=== PATIENT | female | born 1980 | race Caucasian/White ===

== ENCOUNTER 2016-12-10 13:12 | Inpatient (IN) | payer SELFPAY ==
[2016-12-10 14:01] LABS: #Basophils 0.1 thou/uL (0.0-0.2); #Eosinphils 0.2 thou/uL (0.0-0.7); #Lymphocytes 3.6 thou/uL (1.20-3.40); #Monocytes 0.7 thou/uL (0.11-0.59); %Basophils 0.6 % (0.0-1.0); %Eosinophils 1.6 % (0.0-10.0); %Lymphocytes 24.4 % (21.0-51.0); %Monocytes 4.7 % (0.0-10.0); Hematocrit 40.5 % (36.0-47.0); Mean Platelet Volume 8.4 fL (7.4-10.4); White Blood Cell (WBC) Count 14.6 thou/uL (4.8-10.8)
[2016-12-10] MEDS ORDERED: ISOVUE-370 76%-LOCM 1 ML ONE (14:05)
[2016-12-10 14:17] LABS: ALT (SGPT) 22 U/L (8-55); AST (SGOT) 16 U/L (5-34); Alkaline Phosphatase 192 U/L (40-150); Anion Gap 16 mmol/L (10-20); BUN (Urea Nitrogen) 12 mg/dL (7.0-18.7); Bilirubin, Total 0.5 mg/dL (0.2-1.2); Calc. Creatinine Clearance 0 mL/min (70-130); Carbon Dioxide 20 mmol/L (22-29); Chloride 92 mmol/L (98-107); Estimated GFR-MDRD 36; Globulin 3.2 g/dL (2.4-3.5); Lactic Acid - Sepsis 3.3 mmol/L (0.5-2.2); Protein, Total 6.6 g/dL (6.0-8.3)
[2016-12-10] MEDS ORDERED: Clindamycin/D5W 900 mg/50 ml Premix Bag ONE (14:38)
[2016-12-10] MEDS ORDERED: Insulin Regular 300 UNITS/3 ML VIAL ONE (15:28)
[2016-12-10] MEDS ORDERED: Clindamycin/D5W 600 mg/50 ml Premix Bag ONE (15:38)
[2016-12-10] MEDS ORDERED: metroNIDAZOLE 500 MG/100 ML BAG ONE (17:08)
[2016-12-10] MEDS ORDERED: Ondansetron HCl/PF 4 MG/2 ML Vial IVP PRN (18:59)
[2016-12-10] MEDS ORDERED: Fentanyl 100 MCG/2 ML VIAL SLOW IVP PRN (18:59)
[2016-12-10] MEDS ORDERED: Ondansetron ODT 4 MG TAB SL PRN (18:59)
[2016-12-10] MEDS ORDERED: Sodium Chloride 0.45% 1,000 ML IV SCH (19:00)
[2016-12-10 19:27] VITALS: BMI 28.8
[2016-12-10] MEDS ORDERED: Ondansetron ODT 4 MG TAB PO PRN (19:51)
[2016-12-10] MEDS ORDERED: Dextrose 5% in Water 1,000 ML IV PRN (19:51)
[2016-12-10] MEDS ORDERED: Acetaminophen 325 MG TAB PO PRN (19:51)
[2016-12-10] MEDS ORDERED: Dextrose 50% Abboject 50 ML SYRINGE SLOW IVP PRN (19:51)
--- NOTE | 2016-12-10 19:59 | CT ---
CT NECK WITH CONTRAST: History: 36-year-old female with left jaw pain and swelling, fever, and chills. FINDINGS: There is poor dentition. There is a carious left upper first incisor. All of rest of the left upper teeth are absent. There is consequently loss of bone throughout the left maxillary alveolar ridge. T here are other carious teeth, mostly in the right maxilla, and there are several periapical (radicul ar) cysts around the many of these. There is soft tissue swelling and edema involving the left buccal space, with edema extending into t he subcutaneous fat superficial to the left buckle space, lateral to the left mandible. No definite dental abscess is identified, but streak artifact from dental amalgam could hide a small dental absc ess. No definite osseous cortical defect is identified involving the left mandible. There is increased mucosal enhancement and thickening of the pharyngeal mucosal space of the nasopha rynx and oropharynx. The bilateral palatine tonsils are mildly enlarged. Tiny low density hypodensit ies within the bilateral palatine tonsils with thin rim enhancement, may represent microabscesses, o ne on each side. The uvula is also edematous. The larynx and lingual tonsils are normal. Adenoids are enlarged. The left lobe of the thyroid gland is truncated, smaller than that of the right. There are enlarged bilateral level 1A submental lymph nodes. There are enlarged bilateral level 1B submandibular lymph nodes, left greater than right, an d bilaterally prominent level 2 cervical lymph nodes, left greater than right. No abscess is identif ied in the neck. Other than the enlarged cervical lymph nodes, no other pathology is identified invo lving the posterior cervical, carotid, parotid, perivertebral, retropharyngeal, manager location, or subli ngual, spaces. IMPRESSION: 1. Poor dentition, with multiple caries, multiple periapical (radicular) cysts, and absence of almos t all of the left upper teeth. 2. Soft tissue edema and swelling of the left buccal space extending into the subcutaneous fat later al to the left jaw, consistent with cellulitis. 3. Pharyngitis. 4. Reactive cervical lymphadenopathy, left greater than right. 5. Streak artifact from dental amalgam could obscure an abscess in the left buccal space. 6. Questionable microabscesses of the bilateral palatine tonsils. POS: [facility]
[2016-12-10] MEDS ORDERED: HumaLOG 300 UNITS/3 ML VIAL SC PRN ×2 (20:20)
[2016-12-10] MEDS ORDERED: Labetalol HCl 100 MG/20 ML VIAL SLOW IVP PRN (20:34)
[2016-12-10] MEDS ORDERED: 1/2 NS w/KCL 20 mEq 1,000 ML IV SCH (21:00)
[2016-12-10 21:05] LABS: Anion Gap 10 mmol/L (10-20); BUN (Urea Nitrogen) 9 mg/dL (7.0-18.7); Calc. Creatinine Clearance 108 mL/min (70-130); Calcium 8.3 mg/dL (7.8-10.44); Carbon Dioxide 23 mmol/L (22-29); Chloride 105 mmol/L (98-107); Estimated GFR-MDRD 69
[2016-12-10 21:29] LABS: Hemoglobin A1c 17.6 % (4.0-6.0)
[2016-12-10] MEDS ORDERED: Vancomycin HCl 1.25 GM in Sodium Chloride 0.9% 250 ML 250 ML IVPB SCH ×2 (21:30→23:00)
[2016-12-10] MEDS ORDERED: Clindamycin/D5W 600 MG in Premix Bag 1 BAG IVPB SCH (22:00)
[2016-12-10] MEDS ORDERED: Vancomycin HCl 1 GM in Premix Bag 1 BAG IVPB SCH ×2 (22:00→23:00)
[2016-12-10] MEDS: Vancomycin HCl 1.25 GM in Sodium Chloride 0.9% 250 ML 250 ML IVPB SCH (22:22)
[2016-12-10] MEDS: Potassium Chloride 40 MEQ in Sodium Chloride 0.45% 1,000 ML IV SCH (22:22)
[2016-12-11 00:43] LABS: Bilirubin Negative (Negative); Blood, Urine Negative (Negative); Glucose, Urine (Dipstick) >=1000 mg/dL (Negative); Ketone, Urine Negative (Negative); Nitrite Negative (Negative); Protein, Urine (Dipstick) 100 mg/dL (Neg-Trace); Urobilinogen 0.2 mg/dL (0.2-1.0)
[2016-12-11 00:46] LABS: Bacteria/HPF None Seen HPF (None Seen); Hyaline Casts/LPF 0-3 HYALINE CAST LPF (0-3 Hyaline); RBC/HPF 0-3 HPF (0-3); Squamous Epithelial 0-3 HPF (0-3); WBC/HPF 0-3 HPF (0-3)
[2016-12-11 02:22] LABS: #Basophils 0.1 thou/uL (0.0-0.2); #Eosinphils 0.2 thou/uL (0.0-0.7); #Lymphocytes 3.1 thou/uL (1.20-3.40); #Monocytes 0.6 thou/uL (0.11-0.59); #Neutrophils 5.9 thou/uL (1.40-6.50); %Basophils 1.1 % (0.0-1.0); %Eosinophils 2.4 % (0.0-10.0); %Monocytes 5.7 % (0.0-10.0); Hematocrit 36.2 % (36.0-47.0); Mean Platelet Volume 7.9 fL (7.4-10.4); Red Blood Cell (RBC) Count 3.94 mill/uL (4.20-5.40); White Blood Cell (WBC) Count 9.8 thou/uL (4.8-10.8)
[2016-12-11 02:44] LABS: ALT (SGPT) 91 U/L (8-55); AST (SGOT) 139 U/L (5-34); Alkaline Phosphatase 248 U/L (40-150); Anion Gap 13 mmol/L (10-20); BUN (Urea Nitrogen) 8 mg/dL (7.0-18.7); Bilirubin, Total 0.5 mg/dL (0.2-1.2); Calc. Creatinine Clearance 117 mL/min (70-130); Calcium 8.3 mg/dL (7.8-10.44); Carbon Dioxide 19 mmol/L (22-29); Chloride 107 mmol/L (98-107); Estimated GFR-MDRD 76; Globulin 2.6 g/dL (2.4-3.5); Protein, Total 5.4 g/dL (6.0-8.3)
[2016-12-11] MEDS: Clindamycin/D5W 600 MG in Premix Bag 1 BAG IVPB SCH ×3 (04:02→20:58)
--- NOTE | 2016-12-11 04:48 | HP ---
CHIEF COMPLAINT: Facial pain. Please note I have reviewed and discussed and reexamined the patient with the residents and my addit ions are noted as below. HISTORY OF PRESENT ILLNESS: This is a 36-year-old female with past history of diabetes and chronic hypertension, reported history of some kidney disease and chronic methamphetamine abuse, she present s with several-day history of worsening facial pain over an area that has been swelling up with asso ciated fevers and chills. Because of the pain, she decided to come in to the ER. In the ER, she wa s found to have leukocytosis, tachycardia, profound hypoglycemia and a concern for a facial or denta l abscess. She was seen by OMFS and they said there is no intervention required and CT scan confirm ed that. She was subsequently admitted to our service. In the ED, she was given insulin, antibioti cs, and IV fluids prior to admission. REVIEW OF SYSTEMS: Positive as per HPI and a complete review of systems as detailed in the resident 's note. PAST MEDICAL HISTORY: Significant for: 1. Diabetes. 2. Hypertension. 3. Kidney disorder. 4. Methamphetamine abuse. 5. Tobacco abuse. 6. Obesity. PAST SURGICAL HISTORY: Has been reviewed as detailed in the resident's note. ALLERGIES: Positive for CEFTRIAXONE and NAPROXEN. SOCIAL HISTORY: The patient lives in [place], is currently unemployed. 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 FAMILY HISTORY: Has been reviewed as detailed in the resident's note. PHYSICAL EXAMINATION: VITAL SIGNS: Temperature 97.8, pulse 108, respirations 18, O2 sat 100%, blood pressure 141/82. On my examination, she was no longer tachycardic at approximately 90 beats per minute. GENERAL/CONSTITUTIONAL: The patient is very comfortable appearing, lying in bed and sleeping and is easily aroused, in no acute distress. HEENT: Eyes: Without icterus and injection. Ears, nose, throat, and mouth: She has a scabbed ove r comedone or previous wound on her left lower buccal/mental space of her chin that has surrounding erythema that is tender to palpation. She will not really let me examine it well enough to determin e if there is fluctuance or does not seem to be any draining on the anterior surface or buccal surfa ce of her mouth. She, of course, has poor dentition and multiple missing teeth and caries. I do no t appreciate any other lesions of her ears or her face. CARDIOVASCULAR: Regular rate and rhythm without murmur. LUNGS: Clear to auscultation without increased work of breathing. GASTROINTESTINAL: Bowel sounds positive. Nontender to palpation. No palpable organomegaly. GENITOURINARY: Deferred. No Barnes catheter in place. MUSCULOSKELETAL: No gross deformity or tenderness. SKIN: She has multiple scabs scattered throughout her dermis and Blane's nails on her hands. NEUROLOGIC: Cranial nerves II through XII are grossly intact and symmetric. Motor is 5/5 throughou t. Sensation is intact to light touch throughout. PSYCHIATRIC: She is alert and oriented x3. Easily arousable. Poor insight into her current condit ion and judgment. HEME/LYMPH/IMMUNOLOGIC: I do not really appreciate any palpable or large lymphadenopathy of her hea d, neck, or supraclavicular areas. LABORATORY DATA: Her admission labs, white count 14.6, hemoglobin 13.6, platelets 209. Sodium 124, chloride 92, carbon dioxide 20, BUN 12, creatinine 1.63, glucose 801, serum osmolality is 303, lact ic acid is 3.3, alkaline phosphatase is 192, bilirubin 0.5. Magnesium 1.8. Beta hydroxybutyrate 0. 12. UDS is pending. Report of the CT scan identifies no discrete abscess with some limitations as noted, but this does not appear to be limited over the area of concern on physical exam. They notic ed some multiple periapical cysts consistent with her dental disease as well as multiple missing marquise th. ASSESSMENT AND PLAN: A 36-year-old with: 1. Sepsis secondary to facial cellulitis/abscess that may have already drained. We will begin vanc omycin and clindamycin with plan to either transfer to oral agents in 1-2 days pending improvement. Blood cultures have been drawn and will be followed. 2. Hyperosmolar hyperglycemic state versus hyperglycemia. The patient may have been a little somno lent on presentation, but she appears to be mentating well currently. Her sugar dropped well with a liter bolus and 10 units insulin. We will just continue her on sliding scale for now and will plan on transitioning her to metformin prior to discharge pending clinical stability and A1c has been se nt. We will make sure lipid panel as well and discussed starting a statin with her in the morning. 3. With her diabetes, see above. 4. Hypertension. We will start her on Norvasc versus lisinopril and follow in the morning dependin g upon what her renal function does. 5. Acute kidney injury versus chronic kidney disease. Creatinine 1.7 on admission. Expect this is due to the prerenal azotemia likely due to her osmotic diuresis, but we will trend and follow. 6. Elevated alkaline phosphatase. I think I will defer workup to the primary team in the morning a nd allow them to proceed further. 7. Methamphetamine abuse. She has a long history of this. We will send a hepatitis panel, HIV, RP R, and appropriate followup for that will be obtained. She has been counseled on cessation. 8. Obesity. We counseled diet, exercise, and healthy living. 9. Tobacco abuse. Time was spent discussing her tobacco usage and we counseled cessation. 10. Hyponatremia. This is likely related to hyperglycemia and when corrected, it is normal. We wi ll follow with serial labs. 11. For deep vein thrombosis prophylaxis, she will have SCDs and Lovenox. Gastrointestinal prophyl axis will be diet. Length of stay, likely greater than 48 hours.
--- NOTE | 2016-12-11 04:56 | HP-2 ---
CODE STATUS: FULL. PRIMARY CARE PHYSICIAN: Dimitri rodriguez. ATTENDING: Dr. Dayron Reynoso RESIDENT: Dr. Aurora Estes CHIEF COMPLAINT: Swelling and jaw pain. HISTORY OF PRESENT ILLNESS: The patient is a 36-year-old female with past medical history of diabet es, hypertension and kidney disease with no followup or compliance here for facial abscess. The pat ient reports history of multiple facial abscesses have healed in the past months. The wound oozed w ynes pus 2 days ago, but has not drained today. Reports fevers at home. She has not been on any me dications for greater than 1 year due to insurance. The patient is a chronic meth user, last used m eth 3 days ago. The patient also reporting dysuria, vaginal discharge with increased sugars, recent cough and congestion and denies tooth pain, nausea or vomiting. In the ER, the patient was given Dilaudid 0.5., Flagyl, clindamycin 300 mg, Novolin 10 units and IV fluid hydration. PAST MEDICAL HISTORY: Type 2 diabetes, hypertension, and nephrotic syndrome. PAST SURGICAL HISTORY: x2. D\T\C in 2013, and cholecystectomy in 2014. ALLERGIES: ALEVE, CEFTRIAXONE, NAPROXEN and ROCEPHIN. MEDICATIONS: None. FAMILY HISTORY: Congestive heart failure. SOCIAL HISTORY: The patient reports 4-6 cigarettes per day for 20 years. Denies alcohol use and re ports drug use of methamphetamines. The patient is single with 4 children. REVIEW OF SYSTEMS: A 12-point review of systems was performed including general, eyes, respiratory, ENT, CV, GI, , skin, MS, neuro and psych, and positive findings are fever, cough, congestion, dys uria, skin lesions/abscess, pain and tenderness of the area of lesions. PHYSICAL EXAMINATION: VITAL SIGNS: Blood pressure 138/103, pulse 100, respiratory rate 18, T-max 98.4, pulse ox 99% on ro om air, current weight 95.25 kilograms. GENERAL: Alert and oriented x4, no acute distress. The patient does not appear stated age. EYES: PERRLA, EOMI. ENT: Oropharynx within normal limits. No evidence of abscess or increased erythema or lesions in t he mouth. NECK: Supple. CARDIOVASCULAR: Regular rate and rhythm. No murmurs or gallops. Radial pulses 2+. RESPIRATORY: Normal effort, no retractions, clear to auscultation bilaterally. SKIN: Warm and dry. Includes a 1.5 inch diameter erythematous area on the left cheek with central drainage site, though it is not currently draining and surrounding mild fluctuance. This area is te nder to palpation. ABDOMEN: Soft, nontender. Bowel sounds positive. No mass or distention. Negative CVA tenderness. EXTREMITIES: No clubbing, cyanosis or edema. MUSCULOSKELETAL: Structure is within normal limits. NEUROLOGIC: No focal deficits. PSYCHIATRIC: The patient does appear anxious. LABORATORY DATA: CBC, white count 14.6, hemoglobin 13.6, hematocrit 40.5, platelets 209. MCV 92, % neutrophils 68.7. Chemistries: Sodium 124 corrects to 138, potassium 3.9, chloride 92, CO2 20, BU N 12, creatinine 1.63, blood glucose 801. One hour after fluids and insulin was for 410, albumin 3. 4, total protein 6.6, AST 16, ALT 22, alkaline phosphatase 192, calcium 9.0, total bilirubin 0.5. b eta hydroxybutyrate 0.12. Serum osmolality 303, magnesium 1.8, lactic acid 3.3. VBG: PH 7.4, pCO2 36.6, bicarbonate 23.8. IMAGING: CT soft tissue neck reveals soft tissue swelling, no obvious abscess. ASSESSMENT AND PLAN: 1. Sepsis secondary to facial cellulitis with lactic acidosis. IV vancomycin and clindamycin. IV fluid hydration, Oral Maxillofacial consulted and recommends IV antibiotics with outpatient follow u hoa Alejandro for pain control. Blood cultures, urine cultures pending. 2. HHS secondary to sepsis. Initial blood glucose 801, down to 410 with IV fluids and 10 units ins ulin, continue aggressive sliding scale insulin, 1/2 normal saline with KCl at 200 mL per hour, q.4 h. Accu-Cheks and q.6 h. BMPs. 3. Pseudohyponatremia. This corrects to 138, it is likely due to sepsis or to HHS. . 4. Hypertension. We will start lisinopril pending kidney function if continuing to have elevated c reatinine we will start amlodipine, IV labetalol p.r.n. 5. Dysuria, likely urinary tract infection. UA and urine culture pending. 6. History of drug use. UDS, HIV, hepatitis panel and RPR ordered. 7. Unfunded. We will consult case management and use medications on the 4 dollar list. 8. VTE prophylaxis versus chronic kidney disease. We are going to renally dose meds likely due to dehydration. We will recheck after IV fluids in 6 hours. 9. Parathyroid hormone, vitamin D level and phosphorus level ordered. 10. Elevated alkaline phosphatase. After reviewing old records, it seems to be chronic. Will foll ow for tomorrow and defer more workup to morning team. 11. Diabetes mellitus. We will check an A1c and switched to metformin as soon as we can.
[2016-12-11] MEDS: HYDROcodone/Acetaminophen 5/325 mg Tablet PO PRN ×4 (05:38→20:56)
[2016-12-11] MEDS: Potassium Chloride 40 MEQ in Sodium Chloride 0.45% 1,000 ML IV SCH ×2 (05:41→06:12)
[2016-12-11] MEDS ORDERED: Enoxaparin Sodium 40 MG/0.4 ML SYRINGE SC SCH (06:00)
[2016-12-11] MEDS: Sodium Chloride 0.9% 1,000 ML IV SCH ×2 (06:11→17:36)
--- NOTE | 2016-12-11 06:27 | CON ---
DATE OF CONSULTATION: 12/11/2016 CHIEF COMPLAINT: Facial pain and swelling. HISTORY OF PRESENT ILLNESS: This is a 36-year-old female with a 2 month history of on and off left facial pain. She was evaluated by the ER, noted to have a white blood cell count of 14.6 and a blood sugar of 800 on admission. She was treated with insulin in fluids and blood sugar was reduced down to 198 on admission. Patient's vital signs currently, pulse of 95, temperature of 98, respirations 16, O2 sat 98% on room air, blood pressure 154/96 in the ER. I was consulted for possible dental abscess. PAST MEDICAL HISTORY: Diabetes, kidney disease, and hypertension. PHYSICAL EXAMINATION: GENERAL: The patient does have caries remaining dentition; however, none of the teeth are tender to palpation. She does have just lateral to the commissure for lip on the left superficial indurated firm erythematous area of cellulitis that does not appear to be related to her dentition, is very superficial and has no swelling in the mandibular vestibule. CT scan of the face shows multiple caries teeth and soft tissues fat stranding in the left buccal space. ASSESSMENT: This is a 36-year-old diabetic female with left facial cellulitis, likely a Staph skin boil. PLAN: The patient is being admitted to the Internal Medicine this time for the control of blood sugar and IV antibiotics. I feel no need for surgery at this time as there is no currenntt fluid collection on CT scan or palpable on exam. We will continue to monitor. ANA
[2016-12-11 07:50] LABS: Amphetamine Detected (NotDetected); Methamphetamine Detected (NotDetected)
[2016-12-11 07:51] LABS: Methadone Not Detected (NotDetected)
[2016-12-11] MEDS: Lactinex Tablet PO SCH (08:11)
[2016-12-11] MEDS: Lisinopril 10 MG TAB PO SCH (08:11)
--- NOTE | 2016-12-11 08:32 | PDOC.FM ---
- Subjective Subjective: 36 yo F hospital day 2. Originally admitted for sepsis 2/2 cellulitis vs dental abscess, HHS, lactic acidosis and AMARILIS. Currently hospital day 2. No acute events overnight. Pt reports she isn't sure if she will require surgery and doesnt recall what OMFS reported to her yesterday. She denies CP, SOB, NVDC. She has mild pain on the buccal surface on left side of her face which she states is improved from yesterday. - Objective Vital Signs & Weight: Vital Signs (12 hours) Temp Pulse Resp BP BP Pulse Ox 12/11/16 08:11 174/98 H 12/11/16 07:10 98.6 F 79 14 174/98 H 97 12/11/16 05:56 20 167/102 H 12/11/16 04:00 98.7 F 95 20 159/101 H 97 12/11/16 00:09 98 F 95 16 154/96 H 98 12/10/16 22:01 97.2 F L 107 H 20 98 12/10/16 21:20 97.2 F L 107 H 20 131/78 98 Weight Weight 101.922 kg I&O: 12/10/16 12/11/16 12/12/16 06:59 06:59 06:59 Intake Total 1400 Output Total 1150 Balance 250 Result Diagrams: 12/11/16 02:06 12/11/16 02:06 Phys Exam - Physical Examination Constitutional: NAD HEENT: moist MMs poor dentition Neck: no nodes, no JVD Respiratory: no wheezing, no rales, no rhonchi, clear to auscultation bilateral Cardiovascular: RRR, no significant murmur, no rub Gastrointestinal: soft, non-tender, no distention, positive bowel sounds Musculoskeletal: no edema, pulses present Deviation from normal: approximately 1.5 inch area of induration and erythema left face Dx/Plan (1) Sepsis affecting skin Code(s): A41.9 - SEPSIS, UNSPECIFIED ORGANISM Status: Acute Plan: -2/2 cellulitis of the left buccal area vs dental infection -OMFS consulted and saw pt in ED, recommended no surgery at this time -continue Clindamycin and Vancomycin -Vancomycin trough ordered for tomorrow (2) Lactic acidosis Code(s): E87.2 - ACIDOSIS Status: Acute Plan: 2/2 sepsis DC 1/2 NS NS @120mls/hr resolved last LA 0.7, No AG (3) AMARILIS (acute kidney injury) Code(s): N17.9 - ACUTE KIDNEY FAILURE, UNSPECIFIED Status: Resolved Plan: initial creatinine 1.63--> .85 responsive to fluids 2/2 dehydration vs CKD w/ GFR of 76 (stage 3) will trend (4) Transaminitis Code(s): R74.0 - NONSPEC ELEV OF LEVELS OF TRANSAMNS & LACTIC ACID DEHYDRGNSE Status: Acute Plan: Persistently elevated alk phos increase in LFTs today ruq US ordered will f/u with results (5) Hyponatremia Code(s): E87.1 - HYPO-OSMOLALITY AND HYPONATREMIA Status: Acute Plan: psuedo 2/2 hyperglycemia corrects from 135->137 Continue NS @120 Mls/hr (6) Hypertension Code(s): I10 - ESSENTIAL (PRIMARY) HYPERTENSION Status: Acute Plan: elevated BP this AM at 167/102 Fluids decreased Continue lisinopril will follow labetalol for BP sys >180 (7) Diabetes mellitus Code(s): E11.9 - TYPE 2 DIABETES MELLITUS WITHOUT COMPLICATIONS Status: Acute Plan: pts BG on admission 800 down to latest of 251 no evidence of DKA on admission, No AG continue aggressive SSI Pts average glucose approx 450 with A1C level of 17.5 (8) Diabetic hyperosmolar non-ketotic state Code(s): E11.00 - TYPE 2 DIAB W HYPROSM W/O NONKET HYPRGLY-HYPROS COMA ([facility]) Status: Acute Plan: resolved latest glucose 251 NS @120 aggressive SSI monitor electrolytes (9) Drug abuse Code(s): F19.10 - OTHER PSYCHOACTIVE SUBSTANCE ABUSE, UNCOMPLICATED Status: Acute Plan: Heb B negative RPR negative HIV pending (10) Dysuria Code(s): R30.0 - DYSURIA Status: Acute Plan: UA negative for bacteria, leuks and nitrites + Glucose Culture pending Unlikely 2/2 UTI
--- NOTE | 2016-12-11 11:41 | ULT ---
GALLBLADDER ULTRASOUND: CLINICAL HISTORY: Abnormal liver function enzymes, elevated LFTs. FINDINGS: There is no focal hepatic lesion demonstrated. There is a prominent-sized liver measuring 19 cm in length. The patient is status post cholecystectomy. The common duct is normal in size. No ascites . IMPRESSION: 1. Enlarged liver. No focal hepatic lesion. 2. Status post cholecystectomy. POS: OFF
[2016-12-11] MEDS: Vancomycin HCl 1.25 GM in Sodium Chloride 0.9% 250 ML 250 ML IVPB SCH ×2 (11:48→22:14)
--- NOTE | 2016-12-11 14:18 | ADD-PRG ---
DATE OF SERVICE: 12/11/2016 This is an addendum to the note of Dr. Alfie Thompson. Ms. Harrison is a pleasant 36-year-old female who was admitted with a facial cellulitis likely precip itated a hyperglycemic hyperosmolar syndrome. She was admitted with a blood glucose of 800 with a n ormal bicarbonate and normal hydroxybutyrate. She was given intravenous insulin infusion as well as fluids and this morning she looks and feels much better. She has been started on broad spectrum an tibiotics. Her facial cellulitis is already markedly improved. We can likely let her go home later today or tomorrow after adjusting her insulin dosages.
[2016-12-11] MEDS ORDERED: Recombivax (HEP-B) 5 MCG/0.5 ML VIAL IM ONE (16:26)
[2016-12-11] MEDS ORDERED: Insulin NPH/Reg Insulin Hm 300 UNITS/3 ML VIAL SC SCH (21:00)
[2016-12-12] MEDS: HumaLOG 300 UNITS/3 ML VIAL SC PRN ×5 (00:35→21:10)
[2016-12-12] MEDS: HYDROcodone/Acetaminophen 5/325 mg Tablet PO PRN ×4 (01:01→22:20)
[2016-12-12] MEDS: Clindamycin/D5W 600 MG in Premix Bag 1 BAG IVPB SCH ×3 (04:37→21:07)
[2016-12-12 05:39] LABS: #Basophils 0.1 thou/uL (0.0-0.2); #Eosinphils 0.4 thou/uL (0.0-0.7); #Lymphocytes 3.7 thou/uL (1.20-3.40); #Monocytes 0.6 thou/uL (0.11-0.59); #Neutrophils 7.4 thou/uL (1.40-6.50); %Lymphocytes 30.1 % (21.0-51.0); %Monocytes 5.3 % (0.0-10.0); Hematocrit 38.9 % (36.0-47.0); Mean Platelet Volume 8.2 fL (7.4-10.4); Red Blood Cell (RBC) Count 4.16 mill/uL (4.20-5.40); White Blood Cell (WBC) Count 12.2 thou/uL (4.8-10.8)
[2016-12-12] MEDS ORDERED: NPH, Human Insulin Isophane 300 UNIT/3 ML VIAL SC SCH ×2 (06:00→09:00)
[2016-12-12 06:15] LABS: ALT (SGPT) 47 U/L (8-55); AST (SGOT) 21 U/L (5-34); Alkaline Phosphatase 212 U/L (40-150); Anion Gap 13 mmol/L (10-20); BUN (Urea Nitrogen) 13 mg/dL (7.0-18.7); Bilirubin, Total Less than 0.2 mg/dL (0.2-1.2); Calc. Creatinine Clearance 123 mL/min (70-130); Calcium 8.2 mg/dL (7.8-10.44); Carbon Dioxide 20 mmol/L (22-29); Chloride 106 mmol/L (98-107); Estimated GFR-MDRD 79; Globulin 2.7 g/dL (2.4-3.5); Protein, Total 5.3 g/dL (6.0-8.3)
[2016-12-12] MEDS ORDERED: Fluconazole 100 MG TAB PO SCH (08:15)
--- NOTE | 2016-12-12 08:17 | PDOC.FM ---
- Subjective Subjective: 36 yo F hospital day 3. No acute events overnight. Pt states that pain in area of swelling on left buccal area has improved. Denies NVDC, CP, SOB, fever and chills. Her sugar went up to 500s yesterday. She was started on 500BID metformin and scheduled to start NPH @ 10U BID today. Her sugar responded went to 150s and her morning dose of NPH was held. - Objective Vital Signs & Weight: Vital Signs (12 hours) Temp Pulse Resp BP Pulse Ox 12/12/16 08:00 96.2 F L 98 17 143/90 H 99 12/12/16 04:00 98.3 F 92 18 135/70 97 12/12/16 00:00 97.6 F 100 18 134/90 97 Weight Weight 81.828 kg I&O: 12/11/16 12/12/16 12/13/16 06:59 06:59 06:59 Intake Total 1400 1100 Output Total 1150 2400 Balance 250 -1300 Result Diagrams: 12/12/16 05:16 12/12/16 05:16 Phys Exam - Physical Examination Constitutional: NAD HEENT: PERRLA, moist MMs poor dentition Neck: no nodes, no JVD Respiratory: no wheezing, no rales, no rhonchi, clear to auscultation bilateral Cardiovascular: RRR, no significant murmur, no rub Gastrointestinal: soft, non-tender, no distention, positive bowel sounds Musculoskeletal: no edema, pulses present Dx/Plan (1) Sepsis affecting skin Code(s): A41.9 - SEPSIS, UNSPECIFIED ORGANISM Status: Resolved Plan: -2/2 cellulitis of the left buccal area vs dental infection -OMFS consulted and saw pt in ED, recommended no surgery at this time -continue Clindamycin and Vancomycin -DC vancomycin -continue clindamycin -white count and vitals stable -possible discharge with oral ABX -consult CM (2) Lactic acidosis Code(s): E87.2 - ACIDOSIS Status: Resolved Plan: 2/2 sepsis DC 1/2 NS NS @120mls/hr resolved last LA 0.7, No AG Tolerating PO DC fluids (3) AMARILIS (acute kidney injury) Code(s): N17.9 - ACUTE KIDNEY FAILURE, UNSPECIFIED Status: Resolved Plan: initial creatinine 1.63--> .85 responsive to fluids 2/2 dehydration vs CKD w/ GFR of 76 (stage 3) will trend -creatinine stable -possible CKD stage 4, GFR 79 (4) Transaminitis Code(s): R74.0 - NONSPEC ELEV OF LEVELS OF TRANSAMNS & LACTIC ACID DEHYDRGNSE Status: Resolved Plan: RUQ US showed enlarged liver w/o lesion stable and down trended persistently elevated alk phos, consider extrahepatic source stable for DC pending CM consult (5) Hyponatremia Code(s): E87.1 - HYPO-OSMOLALITY AND HYPONATREMIA Status: Resolved Plan: psuedo 2/2 hyperglycemia corrects from 135->137 Continue NS @120 Mls/hr Resolved (6) Hypertension Code(s): I10 - ESSENTIAL (PRIMARY) HYPERTENSION Status: Acute Plan: last BP 135/70 Fluids decreased Continue lisinopril will follow labetalol for BP sys >180 (7) Diabetes mellitus Code(s): E11.9 - TYPE 2 DIABETES MELLITUS WITHOUT COMPLICATIONS Status: Acute Plan: pts BG on admission 800 down to latest of 291 no evidence of DKA on admission, No AG switch to NPH @ 5U BID started on metformin 500 BID Pts average glucose approx 450 with A1C level of 17.5 (8) Diabetic hyperosmolar non-ketotic state Code(s): E11.00 - TYPE 2 DIAB W HYPROSM W/O NONKET HYPRGLY-HYPROS COMA ([facility]) Status: Acute Plan: resolved latest glucose 150-291 NS @120 aggressive SSI monitor electrolytes (9) Drug abuse Code(s): F19.10 - OTHER PSYCHOACTIVE SUBSTANCE ABUSE, UNCOMPLICATED Status: Acute Plan: Hep B non immune Vaccine given HIV RPR negative (10) Dysuria Code(s): R30.0 - DYSURIA Status: Acute Plan: UA negative for bacteria, leuks and nitrites + Glucose Culture pending Unlikely 2/2 UTI reports cottage cheese discharge Diflucan 150Mg today and will need another 150 Mg Sunday for concerns of vulvovaginal candidiasis -reccomend outpatient F/U
[2016-12-12] MEDS: Enoxaparin Sodium 40 MG/0.4 ML SYRINGE SC SCH (08:30)
[2016-12-12] MEDS: Lisinopril 10 MG TAB PO SCH (08:30)
[2016-12-12] MEDS: Lactinex Tablet PO SCH (08:30)
--- NOTE | 2016-12-12 12:36 | ADD-PRG ---
DATE OF SERVICE: 12/12/2016 This is an addendum to the note of Dr. Alfie Lane. Ms. Harrison is awake and alert this morning, in no distress. The area of cellulitis of her face loo ks improved, although she still has some fluctuance in her left lower cheek, although I do not belie ve an abscess has formed yet. We will continue to apply moist compresses and continue antibiotics. Her diabetes is quite labile with glucoses ranging between 200 and 500. We will switch her to Humu elier N and premeal Humalog in an attempt to get better control before discharge. The patient's serologies for syphilis, hepatitis A and B and C are all nonreactive.
--- NOTE | 2016-12-12 14:16 | PRG ---
DATE OF SERVICE: 12/12/2016 SUBJECTIVE: No acute 24 hour events. Patient says she does feel a little bit better today. OBJECTIVE: VITAL SIGNS: Patient's vital signs are stable. GENERAL: She is afebrile. LABORATORY DATA: White count is 12. Her wound area swelling has pretty much same in size. The lower left cheek area just lateral to the left lip commissure new development. She does have small amount of seropurulent discharge from the wound, which is able to be express upon pressure to the wound. Area of erythema surrounding purule nce has remained the same. ASSESSMENT: Left cheek skin boil carbuncle. PLAN: Continue warm compress massage of wound. Continue antistaphylococcal antibiotics. I am okay to follow patient as an outpatient. If patient meets discharge criteria from standpoint including blood sugar, okay to follow up in my office tomorrow.
[2016-12-12] MEDS: NPH, Human Insulin Isophane 300 UNIT/3 ML VIAL SC SCH ×2 (17:25→21:07)
[2016-12-13] MEDS: HYDROcodone/Acetaminophen 5/325 mg Tablet PO PRN ×3 (03:24→14:33)
[2016-12-13] MEDS: Clindamycin/D5W 600 MG in Premix Bag 1 BAG IVPB SCH ×2 (05:51→11:11)
[2016-12-13 06:51] LABS: ALT (SGPT) 32 U/L (8-55); AST (SGOT) 17 U/L (5-34); Alkaline Phosphatase 196 U/L (40-150); Anion Gap 14 mmol/L (10-20); BUN (Urea Nitrogen) 17 mg/dL (7.0-18.7); Bilirubin, Total Less than 0.2 mg/dL (0.2-1.2); Calc. Creatinine Clearance 119 mL/min (70-130); Calcium 8.9 mg/dL (7.8-10.44); Carbon Dioxide 17 mmol/L (22-29); Chloride 106 mmol/L (98-107); Estimated GFR-MDRD 77; Protein, Total 5.8 g/dL (6.0-8.3)
[2016-12-13 07:02] LABS: #Basophils 0.1 thou/uL (0.0-0.2); #Eosinphils 0.3 thou/uL (0.0-0.7); #Lymphocytes 4.1 thou/uL (1.20-3.40); #Monocytes 0.5 thou/uL (0.11-0.59); #Neutrophils 6.1 thou/uL (1.40-6.50); %Basophils 0.5 % (0.0-1.0); %Eosinophils 2.7 % (0.0-10.0); %Lymphocytes 36.7 % (21.0-51.0); %Monocytes 4.7 % (0.0-10.0); Hematocrit 41.7 % (36.0-47.0); Mean Platelet Volume 8.8 fL (7.4-10.4); White Blood Cell (WBC) Count 11.1 thou/uL (4.8-10.8)
--- NOTE | 2016-12-13 08:15 | PDOC.FM ---
- Subjective Subjective: Pt had no acute events overnight. No new complaints. States her cheek feels slightly improved. We discussed importance of follow up and medication compliance. Expressed importance of management of her diabetes to help with healing and prevent secondary disease processes related to her uncontrolled diabetes. - Objective Vital Signs & Weight: Vital Signs (12 hours) Temp Pulse Resp BP Pulse Ox 12/13/16 04:00 98.2 F 81 18 132/84 98 12/13/16 00:00 97.9 F 89 18 137/88 98 Weight Weight 81.737 kg I&O: 12/12/16 12/13/16 12/14/16 06:59 06:59 06:59 Intake Total 1100 1610 Output Total 2400 1400 Balance -1300 210 Result Diagrams: 12/13/16 05:30 12/13/16 05:30 Phys Exam - Physical Examination Constitutional: NAD HEENT: moist MMs, sclera anicteric Respiratory: no wheezing, no rales, no rhonchi, clear to auscultation bilateral Cardiovascular: RRR, no significant murmur, no rub Gastrointestinal: soft, non-tender, no distention, positive bowel sounds Musculoskeletal: no edema, pulses present Neurological: non-focal Deviation from normal: 1.5 inch area of induration with .5 cm of erythematous center Dx/Plan (1) Sepsis affecting skin Code(s): A41.9 - SEPSIS, UNSPECIFIED ORGANISM Status: Resolved Plan: -2/2 cellulitis of the left buccal area vs dental infection -OMFS consulted and saw pt in ED, recommended no surgery at this time -continue Clindamycin and Vancomycin -DC vancomycin -continue clindamycin -white count and vitals stable -possible discharge with oral ABX -consult CM Likely DC home today with OP follow [facility] Clindamycin 10 additional day course of 300mg q6h (2) Lactic acidosis Code(s): E87.2 - ACIDOSIS Status: Resolved Plan: 2/2 sepsis SL resolved last LA 0.7, No AG Tolerating PO DC fluids resolved stable for DC (3) AMARILIS (acute kidney injury) Code(s): N17.9 - ACUTE KIDNEY FAILURE, UNSPECIFIED Status: Resolved Plan: initial creatinine 1.63--> .85 responsive to fluids 2/2 dehydration vs CKD w/ GFR of 76 (stage 3) will trend -creatinine stable -possible CKD stage 4, GFR 79 -recommend OP f/u stable for DC (4) Transaminitis Code(s): R74.0 - NONSPEC ELEV OF LEVELS OF TRANSAMNS & LACTIC ACID DEHYDRGNSE Status: Resolved Plan: RUQ US showed enlarged liver w/o lesion stable and down trended persistently elevated alk phos, consider extrahepatic source stable for DC pending CM consult -recommend OP F/U stable for DC (5) Hyponatremia Code(s): E87.1 - HYPO-OSMOLALITY AND HYPONATREMIA Status: Resolved Plan: psuedo 2/2 hyperglycemia corrects from 135->137 Continue NS @120 Mls/hr Resolved (6) Hypertension Code(s): I10 - ESSENTIAL (PRIMARY) HYPERTENSION Status: Acute Plan: last BP 135/70 Fluids decreased Continue lisinopril will follow labetalol for BP sys >180 DC home with lisinopril, F/U OP for follow up (7) Diabetes mellitus Code(s): E11.9 - TYPE 2 DIABETES MELLITUS WITHOUT COMPLICATIONS Status: Acute Plan: pts BG on admission 800 down to latest of 157 no evidence of DKA on admission, No AG switch to NPH @ 5U BID started on metformin 500 BID Pts average glucose approx 450 with A1C level of 17.5 -unfunded pt -we will start her on novolin 10 U BID and continue metformin 500 BID -instruct pt on strict OP f/u and necessity for disease control -stable for discharge (8) Diabetic hyperosmolar non-ketotic state Code(s): E11.00 - TYPE 2 DIAB W HYPROSM W/O NONKET HYPRGLY-HYPROS COMA ([facility]) Status: Acute Plan: resolved latest glucose 150-291 NS @120 aggressive SSI monitor electrolytes resolved stable for discharge (9) Drug abuse Code(s): F19.10 - OTHER PSYCHOACTIVE SUBSTANCE ABUSE, UNCOMPLICATED Status: Acute Plan: Hep B non immune Vaccine given HIV RPR negative (10) Dysuria Code(s): R30.0 - DYSURIA Status: Acute Plan: UA negative for bacteria, leuks and nitrites + Glucose Culture pending Unlikely 2/2 UTI reports cottage cheese discharge Diflucan 150Mg 3 day course
[2016-12-13 08:18] LABS: Hepatitis A Total ABS Negative (Negative)
[2016-12-13] MEDS: Lisinopril 10 MG TAB PO SCH (09:14)
[2016-12-13] MEDS: Lactinex Tablet PO SCH (09:15)
[2016-12-13] MEDS: Enoxaparin Sodium 40 MG/0.4 ML SYRINGE SC SCH (09:16)
[2016-12-13] MEDS: NPH, Human Insulin Isophane 300 UNIT/3 ML VIAL SC SCH (09:17)
[2016-12-13] MEDS ORDERED: Fluconazole 100 MG TAB PO SCH (09:30)
[2016-12-13 10:49] LABS: Anion Gap 8 mmol/L (-14-95); T. Carbon Dioxide 24.9 mmol/L (1.0-85.0); vO2 Saturation-calc 75.2 % (0.0-100.0)
[2016-12-13 11:51] VITALS: BP 150/89; TEMP 98.6
--- NOTE | 2016-12-13 12:22 | ADD-PRG ---
DATE OF SERVICE: 12/13/2016 This is an addendum to the note of Dr. Alfie Lane. Ms. Harrison is resting quietly in bed. She is awake and alert. Her facial swelling and cellulitis have much improved. Her blood glucose levels are improving, though certainly not at goal yet. She will be discharged today on Humulin N insulin as well as Cleocin p.o. for followup at [facility] in 2-5 days.
[2016-12-13] MEDS: HumaLOG 300 UNITS/3 ML VIAL SC PRN (12:29)
--- NOTE | 2016-12-14 13:41 | DIS-2 ---
LOCATION: [facility] in [place], [place]. DATE OF SERVICE: 12/13/2016. COSIGNER: Walt Crockett M.D. DATE OF ADMISSION: 12/10/2016 DATE OF DISCHARGE: 12/13/2016. RESIDENT PHYSICIAN: Alfie Lane D.O. ADMITTING ATTENDING: Dayron Reynoso M.D. DISCHARGE ATTENDING: Walt Crockett M.D. CONSULTATIONS: Oral Maxillofacial Surgery, Dr. Khan 12/10/2016. PROCEDURES: 1. Soft tissue CT of the neck performed on 12/10/2016 showed poor dentition with multiple caries, m ultiple periapical cyst and absence of almost all the left upper teeth. Also showed soft tissue sherry ma and swelling of the left buccal space extending in the subcutaneous fat lateral to the left jaw c onsistent with cellulitis. Additionally, showed pharyngitis, reactive cervical lymphadenopathy, and questionable microabscesses of the bilateral palatine tonsils. 2. Abdominal ultrasound performed on 12/11/2016 showed enlarged liver with no hepatic lesion and case rgical absence of gallbladder. PRIMARY DIAGNOSIS: Sepsis secondary to cellulitis in the left cheek. SECONDARY DIAGNOSES: 1. Lactic acidosis. 2. Acute kidney injury. 3. Transaminitis. 4. Hypertension. 5. Diabetes mellitus. 6. Diabetic hyperosmolar nonketotic state. 7. Vulvovaginal candidiasis. 8. Drug abuse. DISCHARGE MEDICATIONS: 1. Clindamycin 300 mg q.6 hours for 7 days. 2. Insulin NPH 10 units subcutaneously twice a day. 3. Lisinopril 10 mg by mouth daily. 4. Metformin 500 mg oral twice daily. DISCONTINUED MEDICATIONS: None. HISTORY OF PRESENT ILLNESS AND HOSPITAL COURSE: The patient is a 36-year-old female with a past med ical history of hypertension, type 2 diabetes mellitus and history of methamphetamine use, who prese nted to [facility] [place] [facility] for left cheek pain and swelling. In the Emergency Department, she was noted to have white blood cell count of 14.6 and an initial blood glucose of 801. In the ED, the patient was given 0.5 mg Dilaudid, Flagyl, clindamycin and 10 units of Novolin with IV fluid hydration. She was admitted to the floor where she was continued on IV clindamycin and continued on sliding scale insulin. She was subsequently started back on her original home medication of metformin 500 mg b.i. d.; however, she reported that she had not filled this medication for quite some time as it was evid ent by her hemoglobin A1c of 17.5 on admission. The area of induration on the left cheek subsequent ly began to drain after which cultures were taken and grew methicillin-resistant Staphylococcus jamilah us, which was sensitive to clindamycin. Patient was sent home with instructions to continue the cli ndamycin 300 mg 4 times a day for the next 6 days. Because of her unfunded status and the cost of l yang-acting insulin, the patient was given a prescription for Novolin NPH insulin and instructed to t jose enrique the insulin at 10 units twice a day. She was also continued on her metformin 500 mg b.i.d. She was instructed to have close followup outpatient at the [facility] for management of her severely uncontrolled diabetes. PERTINENT LAB FINDINGS DURING THIS HOSPITALIZATION: White blood cell count originally 14.1 and is d own to 11.1 on discharge. Her blood sugar was 801 on admission and was down to 157 on discharge. H emoglobin A1c was drawn and was found to be 17.6. Original lactic acid on admission was 3.3, which eventually fell to the level of 0.7. Urine drug screen was performed and the patient was found to b e positive for methamphetamine. The patient was seen and examined by Oral Maxillofacial Surgery and the patient was instructed to machado ve outpatient followup with Dr. Khan within the following week. It was thoroughly discussed with the patient the importance of her following up outpatient for the m anagement of her diabetes. Additionally, staff was instructed to ensure appointment set up with [facility] prior to the patient being discharged. DISPOSITION: Stable. DISCHARGE INSTRUCTIONS: 1. Location: Home. 2. Diet: Consistent carbohydrates, diabetic diet. ACTIVITY: As tolerated. FOLLOWUP: With [facility] within 1 week following discharge. Followup with Dr. Bill jeronimo Oral Maxillofacial Surgery within 1 week following discharge. The patient was seen and examined with Dr Walt Crockett.
== END 2016-12-13 15:48 | disposition home or self-care (01) | DRG 871 ==
LOC: ERS 13:12 → 2NO 18:44
PROVIDERS: ADMIT Emergency Medicine; ATTEND Emergency Medicine
DX: A41.9 Sepsis, unspecified organism (principal); E11.00 Type 2 diabetes mellitus with hyperosmolarity without nonketotic hyperglycemic-hyperosmolar coma (NKHHC); E87.2 Acidosis; N17.9 Acute kidney failure, unspecified; E11.649 Type 2 diabetes mellitus with hypoglycemia without coma; F15.20 Other stimulant dependence, uncomplicated; N18.4 Chronic kidney disease, stage 4 (severe); E87.1 Hypo-osmolality and hyponatremia; L02.01 Cutaneous abscess of face; L03.211 Cellulitis of face; L02.03 Carbuncle of face; I12.9 Hypertensive chronic kidney disease with stage 1 through stage 4 chronic kidney disease, or unspecified chronic kidney disease; E83.39 Other disorders of phosphorus metabolism; E86.0 Dehydration; E66.9 Obesity, unspecified; B37.3 Candidiasis of vulva and vagina; F19.10 Other psychoactive substance abuse, uncomplicated; F17.210 Nicotine dependence, cigarettes, uncomplicated; R74.0 Nonspecific elevation of levels of transaminase and lactic acid dehydrogenase [LDH]; Z88.1 Allergy status to other antibiotic agents; Z88.8 Allergy status to other drugs, medicaments and biological substances; Z82.49 Family history of ischemic heart disease and other diseases of the circulatory system; Z68.29 Body mass index [BMI] 29.0-29.9, adult
CPT/HCPCS: 36415; 36416; 70491; 76705; 80053; 80306; 81001; 82010; 82306; 82330; 82803; 83036; 83605; 83735; 83930; 83970; 84100; 85025; 86705; 86706; 86709; 86780; 86790; 86803; 87040; 87070; 87077; 87086; 87186; 87205; 87340; 87389; 90471; 90732; 90746; 96360; 96361; 96365; 96372; 96374; 96376; A4216; G0009; J1170; J1650; J1815; J3370; J3480; J3490; J7050

== ENCOUNTER 2017-03-28 22:57 | Inpatient (IN) | payer SELFPAY ==
[~2017-03-28 22:57] MED LIST: ISOVUE-370 76%-LOCM 1 ML ONE
[2017-03-28] MEDS ORDERED: Lidocaine 1% w/Epinephrine 1:100K 20 ML VIAL ONE (23:35)
[2017-03-29 00:08] LABS: #Basophils 0.1 thou/uL (0.0-0.2); #Eosinphils 0.2 thou/uL (0.0-0.7); #Lymphocytes 2.5 thou/uL (1.20-3.40); #Monocytes 0.7 thou/uL (0.11-0.59); #Neutrophils 14.8 thou/uL (1.40-6.50); %Basophils 0.5 % (0.0-1.0); %Eosinophils 1.3 % (0.0-10.0); %Lymphocytes 13.6 % (21.0-51.0); %Monocytes 4.1 % (0.0-10.0); %Neutrophils 80.6 % (42.0-75.0); Hemoglobin 14.9 g/dL (12.0-16.0); Mean Corpuscular HGB CONC 33.4 g/dL (32.0-36.0); Mean Corpuscular Hemoglobin 31.1 pg (27.0-31.0); Mean Corpuscular Volume 92.9 fl (81.0-99.0); Mean Platelet Volume 8.6 fL (7.4-10.4); Platelet Count 253 thou/uL (130-400); RBC Distribution Width 11.4 % (11.5-14.5); Red Blood Cell (RBC) Count 4.81 mill/uL (4.20-5.40); White Blood Cell (WBC) Count 18.3 thou/uL (4.8-10.8)
[2017-03-29 00:28] LABS: ALT (SGPT) 11 U/L (8-55); AST (SGOT) 9 U/L (5-34); Alkaline Phosphatase 184 U/L (40-150); Anion Gap 15 mmol/L (10-20); BUN (Urea Nitrogen) 27 mg/dL (7.0-18.7); Bilirubin, Total 0.3 mg/dL (0.2-1.2); CRP (Inflammatory) 12.32 mg/dL (= or < 0.5); Calc. Creatinine Clearance 0 mL/min (70-130); Calcium 9.6 mg/dL (7.8-10.44); Carbon Dioxide 21 mmol/L (22-29); Chloride 95 mmol/L (98-107); Estimated GFR-MDRD 39; Globulin 3.5 g/dL (2.4-3.5); Potassium 4.4 mmol/L (3.5-5.1); Protein, Total 6.5 g/dL (6.0-8.3); Sodium 127 mmol/L (136-145)
[2017-03-29] MEDS ORDERED: Clindamycin/D5W 900 mg/50 ml Premix Bag ONE (00:32)
[2017-03-29] MEDS ORDERED: Ondansetron HCl/PF 4 MG/2 ML Vial ONE ×2 (00:32→13:20)
[2017-03-29 00:36] LABS: Glucose 702 mg/dL (70-105)
[2017-03-29] MEDS ORDERED: Ondansetron ODT 4 MG TAB SL PRN (03:42)
[2017-03-29] MEDS ORDERED: Sodium Chloride 0.9% 1,000 ML IV SCH (03:42)
[2017-03-29] MEDS ORDERED: Ondansetron HCl/PF 4 MG/2 ML Vial IVP PRN ×2 (03:42→03:44)
[2017-03-29] MEDS ORDERED: Morphine 4 MG/ML VIAL SLOW IVP PRN (03:43)
[2017-03-29] MEDS ORDERED: Dextrose 5% in Water 1,000 ML IV PRN (03:44)
[2017-03-29] MEDS ORDERED: Dextrose 50% Abboject 50 ML SYRINGE SLOW IVP PRN (03:44)
[2017-03-29] MEDS ORDERED: Acetaminophen 325 MG TAB PO PRN (03:44)
[2017-03-29] MEDS ORDERED: HumaLOG 300 UNITS/3 ML VIAL SC PRN (03:44)
--- NOTE | 2017-03-29 03:48 | HP-2 ---
DATE AND TIME OF SERVICE: 0015 on 03/29/2017 CODE STATUS: FULL CODE. PRIMARY CARE PHYSICIAN: Dimitri rodriguez. ATTENDING: Walt Crockett MD RESIDENT: Simone gill MD HISTORIAN: The patient. CHIEF COMPLAINT: Infection on chin. HISTORY OF PRESENT ILLNESS: Ana Rosa Harrison is a 36-year-old female with past medical history of type 2 diabetes and hypertension who presents with a 4- day history of chin redness and pain. Four days ago, she popped a pimple on her chin and the next morning she woke up and it was red and swollen over her chin. She has tried warm compresses and draining it repeatedly over the last couple days and using [id number] creams, but the swelling, pain, and redness has continued and worsened. It now extends up to the lower lip and down to the upper neck. She denies any fever. Denies any pain in the mouth or difficulty swallowing. She has not taken any of her diabetes or hypertension medication lists today. In the ER, she received clindamycin, vancomycin, morphine, Zofran, and 1-liter normal saline bolus. PAST MEDICAL HISTORY: 1. Type 2 diabetes mellitus. 2. Hypertension. 3. Nephrotic syndrome. PAST SURGICAL HISTORY: 1. x2. 2. D and C in 2013. 3. Cholecystectomy. ALLERGIES: 1. ALEVE. 2. ROCEPHIN. 3. NAPROXEN. MEDICATIONS: 1. Lisinopril 10 mg p.o. daily. 2. Pantoprazole 40 mg p.o. daily. 3. Humalog 15 units t.i.d. 4. Metformin 500 mg p.o. b.i.d. SOCIAL HISTORY: The patient endorses smoking 2 cigarettes per day and has been smoking for about 20 years. She denies any alcohol use and she states that she has used meth in the past, states that last use was about a month ago. REVIEW OF SYSTEMS: Twelve-point review of systems including general, eyes, ENT , respiratory, CV, GI, , skin, musculoskeletal, neuro, and psych were reviewed and were unremarkable unless otherwise stated in the HPI. PHYSICAL EXAMINATION: VITAL SIGNS: Blood pressure 156/115, pulse 97, respiratory rate 18, temperature 98.8, pulse ox 97% on room air, current weight 81 kilograms. GENERAL: The patient is alert and oriented x4, in no acute distress, well- developed, well-nourished, and appropriately interactive. EYES: Pupils equal, round, reactive to light and accommodation. Extraocular muscles are intact. ENT: Tympanic membranes pearly andrews without bulging or erythema. Nasal mucosa within normal limits. The patient has very poor dentition and she has got a swollen lower lip. NECK: Supple, without lymphadenopathy or thyromegaly. She has got tenderness to palpation and erythema and induration to chin, lower lip, and submental region. CARDIOVASCULAR: Regular rate and rhythm. No murmurs or gallops. RESPIRATORY: Normal effort, no retractions. LUNGS: Clear to auscultation bilaterally. SKIN: Warm and dry without cyanosis, erythematous, indurated lesion extending from the lower lip to upper neck. ABDOMEN: Soft, nontender. Bowel sounds x4. No masses or distention. EXTREMITIES: No clubbing, cyanosis, or edema. MUSCULOSKELETAL: Structure and tone within normal limits. Full range of motion. NEUROLOGIC: No focal deficits. Sensation within normal limits. PSYCHIATRIC: Appropriate. LABORATORY DATA: White blood cell count 18.3, 88.6% neutrophils, hemoglobin 14.9, hematocrit 44.7, platelets 253. Sodium 127, potassium 4.4, chloride 95, carbon dioxide 21, BUN 27, creatinine 1.51, GFR of 39, glucose 702, calcium 9.6 , total protein 6.5, albumin 3.0, total bilirubin 0.3, AST 9, ALT 11, alkaline phosphatase 184, lactic acid 1.6. CRP 12.32. ASSESSMENT AND PLAN: 1. A 36-year-old female with past medical history of type 2 diabetes mellitus and hypertension, who presents with 4-day history of swelling and erythema to chin. 2. Sepsis secondary to facial cellulitis. Admit to medical. Abscess drained in the ER. We will continue IV antibiotics, vancomycin, and Zosyn. Pain control. Recheck CBC in the morning. Consider consulting OMFS. Consulted pharmacy to discuss antibiotic options. Recommended Zosyn due to there being a low cross reactivity between that and Rocephin. 3. Hyperglycemia. The patient has not taken home metformin or Humalog today. We will restart home medications, q.2 hour Accu-Cheks this morning and sliding scale insulin. We will check a urinalysis and beta hydroxybutyrate. 4. Acute kidney injury. Check urine sodium and creatinine. We will be giving fluids at 120 mL an hour and will recheck kidney function. 5. Diabetes. Restart home medications. 6. Hypertension. Restart home meds. Patient is not taking any blood pressure medications today which explains hypertensive state. 7. History of drug use. Check urine drug screen. 8. Tobacco use, counseled cessation. 9. Pseudohyponatremia secondary to hyperglycemia, corrected to 137. 10. Diet: N.p.o. 11. Code status: FULL CODE. 12. Activity: Ad milad. 13. Deep venous thrombosis prophylaxis, sequential compression devices. DISPOSITION AND LENGTH OF HOSPITAL STAY: Two days. Symptomatic medications were provided. History and physical exam as well as management discussed with Dr. Crockett. ANA
[2017-03-29 04:01] VITALS: BMI 29.0
[2017-03-29] MEDS: Sodium Chloride 0.9% 1,000 ML IV SCH ×3 (04:47→21:06)
[2017-03-29] MEDS: Morphine 2 MG/ML SYRINGE SLOW IVP PRN ×5 (04:48→20:55)
[2017-03-29] MEDS: Lisinopril 10 MG TAB PO SCH (04:51)
[2017-03-29] MEDS: Piperacillin/Tazobactam 2.25 GM in Sodium Chloride 0.9% 100 ML IVPB SCH ×4 (04:53→22:56)
[2017-03-29] MEDS ORDERED: Clindamycin/D5W 900 MG in Premix Bag 1 BAG IVPB SCH (08:00)
[2017-03-29] MEDS: metFORMIN 500 MG TAB PO SCH ×2 (08:07→16:10)
--- NOTE | 2017-03-29 08:16 | CT ---
PRELIMINARY REPORT/[facility]/EMERGENCY AFTER HOURS PROCEDURE: EXAM: CT Neck With Intravenous Contrast CLINICAL HISTORY: 36 years old, female; Signs and symptoms; Mass, lump, or swelling in neck; Patient HX: Swelling to ch in TECHNIQUE: Axial computed tomography images of the neck with intravenous contrast. CONTRAST: 100 mL of ISOVUE administered intravenously. COMPARISON: No relevant prior studies available. FINDINGS: There is swelling in the left cheek with a hypodense focus in the mildly thickened skin on image 20 m easuring 3-4 mm. Subjacent infiltration noted. Abnormal thickening in the chin soft tissues and subcutaneous infiltration centered to the left. Focal hypodensity on coronal image 24 measuring approximately 6 mm is observed. Phlegmon and overlies the left parasymphyseal region. Dental abscess noted in the right mandibular and maxillary incisor teeth. There is a subperiosteal ab scess on image 38 of the axial series overlying the left mandibular incisor teeth measuring 13 mm Nasopharynx: Unremarkable. Oropharynx: No significant tonsillar enlargement. Question hypodensity on image 26 of the axial serie s and the left tonsil measuring 6 mm. Hypopharynx: Unremarkable. Larynx: Unremarkable. Normal epiglottis. Trachea: Unremarkable. Retropharyngeal space: Unremarkable. Submandibular/parotid glands: Unremarkable. Glands are normal in size. Thyroid: Unremarkable. No enlarged or calcified nodules. Bones/joints: No acute fracture. Vasculature: No acute findings. Lymph nodes: Mildly enlarged submandibular lymph nodes. Lung apices: Unremarkable as visualized. IMPRESSION: Left sided subperiosteal abscess overlying the left mandibular incisor teeth measuring 13 mm with adj acent phlegmon. Additional 6 mm abscess in the left parasymphyseal tissue suspected Cutaneous 4 mm abscess in the left cheek tissues Question hypodensity in the left palatine tonsil measuring 6 mm. Abscess not excluded Thank you for allowing us to participate in the care of your patient. Dictated and Authenticated by: Aden Andrews MD 03/29/2017 1:51 AM Central Time ([place] & [place]) FINAL REPORT CT NECK WITH CONTRAST: HISTORY: Swelling. Mass. Lump. COMPARISON: CT neck soft tissues from 12/10/2016. FINDINGS/IMPRESSION: I agree with the preliminary report. CODE: QA POS: [facility]
[2017-03-29 08:37] LABS: Bilirubin Negative (Negative); Blood, Urine Trace (Negative); Clarity CLEAR (Clear); Glucose, Urine (Dipstick) >=1000 mg/dL (Negative); Leukocyte Trace (Negative); Nitrite Negative (Negative); Protein, Urine (Dipstick) 100 mg/dL (Neg-Trace); Specific Gravity, Urine 1.042 (1.002-1.036)
[2017-03-29 08:39] LABS: Bacteria/HPF 1+ HPF (None Seen); Hyaline Casts/LPF 0-3 HYALINE CAST LPF (0-3 Hyaline); Osmolality, Urine 550 mOsm/kg (300-900); RBC/HPF 0-3 HPF (0-3); Yeast-AUWi Flag 19.9 (0-25.0)
[2017-03-29 08:49] LABS: Sodium, Urine 26 mmol/L (Not Available)
[2017-03-29] MEDS ORDERED: HumaLOG 300 UNITS/3 ML VIAL SC SCH (09:00)
[2017-03-29 09:12] LABS: Amphetamine Not Detected (NotDetected); Barbiturates Screen Not Detected (NotDetected); Benzodiazepine Screen Not Detected (NotDetected); Cocaine Metabolite Screen Not Detected (NotDetected); Medtox Control Line Valid? VALID (VALID); Medtox Reader # READER 1; Methadone Not Detected (NotDetected); Methamphetamine Detected (NotDetected); Opiate Screen Detected (NotDetected); Oxycodone Screen Not Detected (NotDetected); Phencyclidine (PCP) Not Detected (NotDetected); THC/Cannabinoid Screen Not Detected (NotDetected); Tricyclic Screen Not Detected (NotDetected)
[2017-03-29] MEDS ORDERED: Clindamycin 150 MG CAP PO SCH (12:30)
[2017-03-29 12:57] LABS: Hemoglobin A1c 13.8 % (4.0-6.0)
[2017-03-29] MEDS ORDERED: Succinylcholine Chloride 20 MG/ML 10 ml SYRINGE FS ONE (13:20)
[2017-03-29] MEDS ORDERED: PHENYLEPHRINE-NS 100 MCG/ML 10 ML SYRINGE ONE (13:20)
[2017-03-29] MEDS ORDERED: Propofol 200 MG/20 ML VIAL ONE (13:20)
[2017-03-29] MEDS ORDERED: Lidocaine 1% PF 5 ML VIAL ONE (13:20)
[2017-03-29] MEDS: Clindamycin/D5W 900 MG in Premix Bag 1 BAG IVPB SCH ×2 (13:56→21:06)
[2017-03-29] MEDS ORDERED: Hydrocortisone 1% Cream 30 GM TUBE ONE (14:52)
[2017-03-29] MEDS ORDERED: Chlorhexidine Gluconate 15 ML UDCUP SSP ONE (14:52)
[2017-03-29] MEDS ORDERED: Lidocaine 2% w/Epinephrine 1:200K 20 ML VIAL ONE (14:52)
[2017-03-29] MEDS: HumaLOG 300 UNITS/3 ML VIAL SC SCH ×2 (16:10→21:00)
--- NOTE | 2017-03-29 16:23 | CON ---
DATE OF CONSULTATION: 03/29/2017 TIME OF SERVICE: 12:05 p.m. HISTORY OF PRESENT ILLNESS: This is a 36-year-old female with a reported 4-day history of worsening chin redness, pain and swelling. She states that it initiated after popping a pimple on her chin and woke up the next day with some initial redness and swelling. The worsening symptoms led her to the ER where the patient was found to be febrile with a white count and had significant swelling with uncontrolled diabetes requiring admission. An attempted simple incision and drainage of the chin was performed by the ER physician with cultures taken. PAST MEDICAL HISTORY: 1. Type 2 diabetes mellitus. 2. Hypertension. 3. Nephrotic syndrome. PAST SURGICAL HISTORY: 1. x2. 2. D&C. 3. Cholecystectomy. ALLERGIES: 1. ALEVE. 2. ROCEPHIN. 3. NAPROXEN. MEDICATIONS: 1. Lisinopril. 2. Pantoprazole. 3. Humalog. 4. Metformin. SOCIAL HISTORY: Positive for smoking. Denies alcohol or any current recreational drug use. Does report a history of meth in the past. REVIEW OF SYMPTOMS: Reports facial pain, soreness and tightness, limited mouth opening secondary to pain, otherwise within normal limits. PHYSICAL EXAMINATION: VITAL SIGNS: Stable, afebrile. GENERAL: Patient is sitting at bedside in no acute distress, awake, alert, and oriented. HEAD: Normocephalic, moderate chin and lower lip edema and erythema and tenderness to palpation. There is a small approximately 5 mm wound consistent with the attempted incision and drainage along the midline of the chin. No active purulence coming from the wound. Inferior border of the mandible is palpable along its entire length. EYES: Pupils equally round and reactive to light. Extraocular movements intact. Visual acuity grossly intact. EARS: Within normal limits. NOSE: Within normal limits. THROAT AND NECK: Supple, trachea midline. INTRAORAL EXAM: Limited maximum interincisal opening secondary to pain. Tongue full range of motion. Floor of mouth is soft. Moderate vestibular edema and fluctuance on palpation, generalized periodontal disease and decay throughout her remaining dentition, poor oral hygiene. LABORATORY DATA: White blood cell count 18.3, hemoglobin 14.9, hematocrit 44.7 , platelets 253. CT of the face reveals edema of the soft tissues overlying the mandibular symphysis consistent with the clinical exam. There are some multifocal areas of phlegmon and fluid collections throughout the soft tissues extending up to the subperiosteal region of the anterior mandible. She has generalized periodontal disease and periapical radiolucencies associated with multiple teeth throughout her maxilla and mandible. It is unlikely that these contribute to an acute abscess, but the fluid collections do extend to the anterior surface of the mandibular symphysis near some hopeless mandibular incisors, which will likely be extracted at the time of surgical intervention. No airway deviation. ASSESSMENT: A 36-year-old female with facial abscess and poor dentition. PLAN: The patient is to be n.p.o., plan for surgical intervention on the operating room this afternoon. Incision and drainage of the abscess will be performed extraorally and intraorally. Drains will likely be placed. Any teeth that are adjacent to the infection will be extracted at that time as well. The procedure was discussed in detail with the patient. Questions were sought and answered. Patient agrees with the conformed plan for surgical intervention. ANA
[2017-03-29] MEDS ORDERED: Midazolam HCl 2 mg/2 ml Vial ONE (16:27)
[2017-03-29] MEDS ORDERED: Fentanyl 250 MCG/5 ML VIAL ONE (16:27)
[2017-03-29] MEDS ORDERED: Lidocaine 2% Jelly 5 ML TUBE ONE (16:37)
[2017-03-29] MEDS ORDERED: Oxymetazoline HCl 0.05% ( 15 ML ) ONE ×2 (16:37→16:42)
--- NOTE | 2017-03-29 16:51 | HP ---
I have reviewed the history and physical of Dr. Simone Alvarenga and agree with his assessment and plan. HISTORY OF PRESENT ILLNESS: Ms. Harrison is a 36-year-old type 2 diabetic who was admitted with a sev ere cellulitis and now abscess of her chin in left side of her face. She was currently on intravenou s antibiotics and has been seen in consultation by Surgery. She will be taken for I and D of an absc ess later this afternoon. PHYSICAL EXAMINATION: VITAL SIGNS: Her blood pressure is 150/100, pulse rate is 80, respirations 18, afebrile. Room air p ulse ox is 97%. GENERAL: She is awake, alert with an obviously swollen chin and lower lip. She is in no respiratory distress. EAR, NOSE, AND THROAT: No erythema or exudate in the throat. EOMs normal. NECK: Supple. CARDIAC: Heart rhythm regular, no gallop or murmur noted. LUNGS: Clear to auscultation. ABDOMEN: Flat and soft. No guarding, rebound or rigidity. LABORATORY DATA: White count 18,300, hemoglobin 14.9, hematocrit 44.7 with an MCV of 93. Chemistrie s: Her admission blood glucose was 702. Her current glucose is 271. She was initially admitted wit h a sodium of 127, which after being corrected for her elevated glucose it was normal, potassium 4.4, chloride 95, bicarbonate 21, BUN 27, creatinine 1.51. C-reactive protein is 12.32. Her urine drug screen was positive for opiates and methamphetamines. Beta hydroxybutyrate was very low at 0.05. ASSESSMENT: 1. Facial cellulitis and abscess. 2. Nonketotic hyperosmolar syndrome. 3. Type 2 diabetes. PLAN: Admit broad spectrum antibiotics and surgical consultation, judicious insulin.
[2017-03-29] MEDS ORDERED: Promethazine HCl 25 MG/ML VIAL SLOW IVP PRN (17:23)
[2017-03-29] MEDS ORDERED: Meperidine HCl/PF 25 MG/ML VIAL SLOW IVP PRN (17:23)
[2017-03-29] MEDS ORDERED: Morphine Sulfate 2 MG/ML SYRINGE SLOW IVP PRN (17:23)
[2017-03-29] MEDS ORDERED: HYDROmorphone 2 MG/ML VIAL SLOW IVP PRN (17:23)
[2017-03-29] MEDS ORDERED: Bacitracin Zinc Ointment 30 gm TUBE ONE (17:28)
[2017-03-29] MEDS ORDERED: Fentanyl 100 MCG/2 ML VIAL ONE ×2 (18:08→18:42)
[2017-03-29] MEDS ORDERED: Insulin Detemir 100 UNITS/ML 15 UNITS in Pre-Filled Syringe SC SCH (21:00)
[2017-03-29] MEDS ORDERED: Morphine 4 MG/ML VIAL SLOW IVP SCH (22:53)
[2017-03-29] MEDS: Chlorhexidine Gluconate 15 ML UDCUP SSP SCH (22:56)
--- NOTE | 2017-03-30 00:50 | OP ---
DATE OF PROCEDURE: 03/29/2017 PREOPERATIVE DIAGNOSES: 1. Facial abscess. 2. Periodontal disease. POSTOPERATIVE DIAGNOSES: 1. Facial abscess. 2. Periodontal disease. PROCEDURES PERFORMED: 1. Extraoral and intraoral incision and drainage of facial abscess. 2. Simple extraction of teeth numbers 23, 25, and 26. ANESTHESIA: General nasoendotracheal anesthesia. INDICATIONS FOR PROCEDURE: This is a 36-year-old female with uncontrolled diabetes, with 4-day history of facial swelling leading to an abscess with significant edema and purulence requiring drainage in the operating room. CT of the face revealed multifocal radiolucencies consistent with purulence throughout the soft tissues along the mandibular symphysis extending up to the sockets of teeth numbers 23, 25, and 26, which had extensive bone loss from the associated periodontal disease. PROCEDURE PERFORMED: The patient was met in the preoperative holding area. Risks, benefits, and alternatives of the procedure were discussed in detail. Questions were sought and answered. Informed consent was obtained. The patient was transferred to the OR by Anesthesia, nursing, and to the OR table where a safety belt was secured. Standard ASA monitors were attached and the patient was noted to have stable vital signs. IV induction by Anesthesia with nasoendotracheal intubation x1 without complication. Endotracheal tube was secured in the standard head wrap fashion. A timeout was performed. The patient was prepped and draped in a sterile fashion. The oropharynx was thoroughly suctioned and moistened Ray-Curtis throat pack was placed. Approximately 10 mL of 2% lidocaine with 1:200,000 epinephrine was administered as bilateral mental nerve blocks. A 15 blade was used to make a 1 cm horizontal incision in the anterior mandibular vestibule with copious purulence from the wound, which was cultured. Blunt dissection with the hemostat throughout the symphysial region was performed with extensive purulence from the wound. Reentry of the extraoral incision made by the ER physician with blunt dissection with hemostats with again copious purulence expressed extraorally. Normal saline was used for irrigation throughout the wound. A quarter-inch gauze soaked in bacitracin, was placed as a wound packing. The purulence and infection extended to the sockets of teeth numbers 23, 25, and 26. A lower forrest was used for simple extraction. Sockets were curetted and gingiva was reapproximated with 4-0 chromic suture. The oropharynx was thoroughly suctioned and the Ray-Curtis throat pack was removed. The patient was extubated in the room and returned to the PACU in stable condition. FLUIDS: See anesthesia records. ESTIMATED BLOOD LOSS: Minimal. IMPLANTS: None. COMPLICATIONS: None. COUNTS: Needle and sponge count verified as correct. MTDD
[2017-03-30] MEDS: Vancomycin HCl 1.25 GM in Sodium Chloride 0.9% 250 ML 250 ML IVPB SCH (02:46)
[2017-03-30] MEDS ORDERED: Morphine 5 mg/5 ml in 0.9% NaCl/PF SYRINGE SLOW IVP PRN (03:08)
[2017-03-30] MEDS: Morphine 4 MG/ML VIAL SLOW IVP PRN ×5 (03:54→21:14)
[2017-03-30] MEDS: Sodium Chloride 0.9% 1,000 ML IV SCH ×3 (04:00→21:09)
[2017-03-30 04:36] LABS: #Basophils 0.1 thou/uL (0.0-0.2); #Eosinphils 0.4 thou/uL (0.0-0.7); #Monocytes 0.6 thou/uL (0.11-0.59); #Neutrophils 10.2 thou/uL (1.40-6.50); %Basophils 0.4 % (0.0-1.0); %Eosinophils 2.6 % (0.0-10.0); %Lymphocytes 21.2 % (21.0-51.0); %Monocytes 3.9 % (0.0-10.0); Hemoglobin 12.8 g/dL (12.0-16.0); Mean Corpuscular HGB CONC 33.3 g/dL (32.0-36.0); Mean Corpuscular Hemoglobin 31.6 pg (27.0-31.0); Mean Corpuscular Volume 94.8 fl (81.0-99.0); Mean Platelet Volume 8.2 fL (7.4-10.4); Platelet Count 241 thou/uL (130-400); RBC Distribution Width 11.3 % (11.5-14.5); Red Blood Cell (RBC) Count 4.06 mill/uL (4.20-5.40); White Blood Cell (WBC) Count 14.2 thou/uL (4.8-10.8)
[2017-03-30 05:04] LABS: Anion Gap 11 mmol/L (10-20); BUN (Urea Nitrogen) 12 mg/dL (7.0-18.7); Calc. Creatinine Clearance 111 mL/min (70-130); Calcium 8.7 mg/dL (7.8-10.44); Carbon Dioxide 21 mmol/L (22-29); Chloride 106 mmol/L (98-107); Estimated GFR-MDRD 71; Glucose 201 mg/dL (70-105); Potassium 3.9 mmol/L (3.5-5.1); Sodium 134 mmol/L (136-145)
[2017-03-30] MEDS: Clindamycin/D5W 900 MG in Premix Bag 1 BAG IVPB SCH ×3 (06:30→21:12)
[2017-03-30] MEDS: Piperacillin/Tazobactam 2.25 GM in Sodium Chloride 0.9% 100 ML IVPB SCH ×3 (06:33→17:02)
[2017-03-30] MEDS: metFORMIN 500 MG TAB PO SCH ×2 (08:40→17:01)
[2017-03-30] MEDS: Lisinopril 10 MG TAB PO SCH (08:40)
[2017-03-30] MEDS: HumaLOG 300 UNITS/3 ML VIAL SC SCH (08:43)
[2017-03-30] MEDS: Chlorhexidine Gluconate 15 ML UDCUP SSP SCH ×3 (08:47→21:24)
[2017-03-30] MEDS ORDERED: Insulin Detemir 100 UNITS/ML 15 UNITS in Pre-Filled Syringe SC SCH (09:00)
[2017-03-30] MEDS ORDERED: Morphine 4 MG/ML VIAL SLOW IVP PRN (10:45)
--- NOTE | 2017-03-30 11:51 | PDOC.FM ---
- Subjective Subjective: Patient is s/p tooth extraction and wound debridement by Dr. Huertas yesterday. Patient reports after surgery yesterday, swelling and feeling of fullness was significantly improved, however today feels like chin and lips are again "filling up." Patient reports pain is 8/10. Denies trouble breathing or swallowing. - Objective MAR Reviewed: Yes Vital Signs & Weight: Vital Signs (12 hours) Temp Pulse Resp BP BP Pulse Ox 03/30/17 08:40 138/95 H 03/30/17 07:39 98.5 F 103 H 18 138/95 H 96 03/30/17 04:00 98.3 F 107 H 20 131/86 95 03/30/17 00:00 100.1 F H 110 H 20 127/85 99 Weight Admit Weight 81.647 kg Weight 81.647 kg I&O: 03/29/17 03/30/17 03/31/17 06:59 06:59 06:59 Intake Total 1500 Balance 1500 Result Diagrams: 03/30/17 04:10 03/30/17 04:10 Phys Exam - Physical Examination Constitutional: NAD in apparent pain HEENT: moist MMs, sclera anicteric Lips & mandibular area with significant swelling but improved from yesterda Two small sites of drainage with serous bloody fluid, packing in place ant cervical lymphadenopathy Respiratory: no wheezing, no rales, clear to auscultation bilateral Cardiovascular: RRR, no significant murmur Musculoskeletal: no edema, pulses present Psychiatric: A&O x 3 Deviation from normal: depressed affect Skin: cap refill <2 seconds Dx/Plan (1) Migratory dental abscess Code(s): K04.7 - PERIAPICAL ABSCESS WITHOUT SINUS Status: Acute (2) Sepsis Code(s): A41.9 - SEPSIS, UNSPECIFIED ORGANISM Status: Acute (3) Diabetic hyperosmolar non-ketotic state Code(s): E11.00 - TYPE 2 DIAB W HYPROSM W/O NONKET HYPRGLY-HYPROS COMA ([facility]) Status: Acute (4) Drug abuse Code(s): F19.10 - OTHER PSYCHOACTIVE SUBSTANCE ABUSE, UNCOMPLICATED Status: Acute (5) Hypertension Code(s): I10 - ESSENTIAL (PRIMARY) HYPERTENSION Status: Acute (6) Diabetes mellitus Code(s): E11.9 - TYPE 2 DIABETES MELLITUS WITHOUT COMPLICATIONS Status: Acute - Plan Plan: Sepsis 2/2 Dental Abscess and Facial abscesses - s/p surgical I&D and tooth extraction by Dr. Huertas - WBC improved today from 18 to 14 - Wound care for dressing changes with bacitracin soaked packing - Wound culture grew Staph aureus in preliminary read, awaiting final read and sensitivities - Continue IV Abx: Vanc, Zosyn, and Clindamycin - Pain management with IV morphine - Liquid diet - will need dental follow up outpatient HHS, resolved - patient with initial glucose of 700 likely 2/2 medication noncompliance and sepsis T2DM - Only on Humalog TID at home, will work on transitioning her to 70/30, but with acute infection would like better control of sugars. Started Levemir 20units BID for better control. When patient with better PO intake will consider adding short acting or transitioning to 70/30 for discharge due to funding - HgA1c 13.8 - Patient in need of close follow up of diabetes management, CM consulted for options HTN - Stable - Continue home Lisinopril Drug Abuse - patient denies recent meth use although UDS positive for methamphetamine. - Counseled on importance of maintaining sobriety Hyponatremia, improved - Urine studies evidenced of HHS being the likely cause of hyponatremia - corrected with NS and glucose control
--- NOTE | 2017-03-30 13:28 | PRG ---
DATE OF SERVICE: 03/30/2017 Ms. Harrison was taken to surgery late yesterday and did have extensive surgery on her chin as well as some removal of teeth and gum repair. She is resting comfortably and in no distress, but unfortunat ginny, her chin is again quite swollen. We anticipate this will improve once she is assisted by Wound Care, packings removed and perhaps further drainage initiated. In the meantime, we will continue her on broad spectrum antibiotics.
[2017-03-31] MEDS: Insulin Detemir 100 UNITS/ML 20 UNITS in Pre-Filled Syringe 1 EACH SC SCH ×3 (00:10→20:57)
[2017-03-31] MEDS: Piperacillin/Tazobactam 2.25 GM in Sodium Chloride 0.9% 100 ML IVPB SCH ×2 (00:11→06:22)
[2017-03-31] MEDS: Morphine 4 MG/ML VIAL SLOW IVP PRN ×6 (01:16→21:06)
[2017-03-31 02:30] LABS: Vancomycin, Trough 5.3 ug/mL
[2017-03-31] MEDS: Vancomycin HCl 1.25 GM in Sodium Chloride 0.9% 250 ML 250 ML IVPB SCH ×2 (04:21→16:23)
[2017-03-31] MEDS: Sodium Chloride 0.9% 1,000 ML IV SCH ×2 (05:45→16:53)
[2017-03-31] MEDS: Clindamycin/D5W 900 MG in Premix Bag 1 BAG IVPB SCH ×3 (07:28→21:08)
--- NOTE | 2017-03-31 07:30 | PDOC.FM ---
- Subjective Subjective: CC: Pain in face and jaw HPI: States her pain is currently 7/10. States the area surrounding her lesion has become less tender. Denies chest pain. reports decent PO intake. - Objective MAR Reviewed: Yes Vital Signs & Weight: Vital Signs (12 hours) Temp Pulse Resp BP Pulse Ox 03/31/17 04:00 98.1 F 89 16 143/93 H 97 03/31/17 00:00 98.6 F 90 18 133/84 99 03/30/17 20:00 98.8 F 93 18 145/98 H 98 Weight Admit Weight 81.647 kg Weight 81.647 kg I&O: 03/30/17 03/31/17 04/01/17 06:59 06:59 06:59 Intake Total 1500 3170 Balance 1500 3170 Result Diagrams: 03/30/17 04:10 03/30/17 04:10 <Saqib Mcgrath - Last Filed: 03/31/17 09:07> - Objective Vital Signs & Weight: Vital Signs (12 hours) Temp Pulse Resp BP Pulse Ox 03/31/17 11:11 97.3 F L 86 16 155/102 H 100 03/31/17 08:00 98.3 F 89 16 99 03/31/17 07:45 98.3 F 89 16 150/103 H 99 03/31/17 07:42 97 03/31/17 04:00 98.1 F 89 16 143/93 H 97 Weight Admit Weight 81.647 kg Weight 81.647 kg I&O: 03/30/17 03/31/17 04/01/17 06:59 06:59 06:59 Intake Total 1500 3170 Balance 1500 3170 Result Diagrams: 03/30/17 04:10 03/30/17 04:10 <Linden Villalpando - Last Filed: 03/31/17 12:43> Phys Exam - Physical Examination Constitutional: NAD HEENT: moist MMs opening of I&D packed with gauze. draining purulent fluid erythema and induration of 3-4 cm diameter surrounding lesion. Neck: no nodes Respiratory: no wheezing, clear to auscultation bilateral Cardiovascular: RRR, no significant murmur Neurological: non-focal, moves all 4 limbs Psychiatric: normal affect, A&O x 3 <Saqib Mcgrath - Last Filed: 03/31/17 09:07> Dx/Plan (1) Migratory dental abscess Code(s): K04.7 - PERIAPICAL ABSCESS WITHOUT SINUS Status: Acute Plan: Vanc/Clinda/Zosyn Day 3. culture positive for MRSA sensitive to vanc and clinda - d/c zosyn - switch to PO norco 10/325 for chcf pain management with morphine 2 mg IV for breakthrough pain. - VSS. afebrile - vanc subtherapeutic. Increased to BID dosing and will re-evaluate (2) Sepsis Code(s): A41.9 - SEPSIS, UNSPECIFIED ORGANISM Status: Resolved QualifierTitle: Sepsis type: methicillin resistant Staphylococcus aureus Qualified Code(s): A41.02 - Sepsis due to Methicillin resistant Staphylococcus aureus Plan: VSS. no longer meets sepsis criteria. 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 - continue levemir 20 U BID - mild SSI - will need to be on metformin at time of d/c and switch to NPH 70/30 due to funding. (4) Drug abuse Code(s): F19.10 - OTHER PSYCHOACTIVE SUBSTANCE ABUSE, UNCOMPLICATED Status: Acute (5) Hypertension Code(s): I10 - ESSENTIAL (PRIMARY) HYPERTENSION Status: Acute QualifierTitle: Hypertension type: essential hypertension Qualified Code( s): I10 - Essential (primary) hypertension Plan: BP 143/93 - will attempt to better control pain and reassess in the morning. - will increase lisinopril to 20mg if needed. <Saqib Mcgrath - Last Filed: 03/31/17 09:07> Attending Addendum - Attending Addendum I personally evaluated the patient and discussed the management with Dr. Mcgrath. I agree with the History, Examination, Assessment and Plan documented above with any addition or exceptions noted below. She endorses feeling better this am and less swelling. On my exam minimal drainage from oral cavity and moderte from submental skin incison. Moderte inderation and redness. A: Stable improved migratory dental abscess due to MRSA post op day 1 Incision and drainage by Oral MF Surgery. P: Continue pain, glucose and BP management, Vanc and Clinda, but D/C Zosyn. <Linden Villalpando - Last Filed: 03/31/17 12:43>
[2017-03-31] MEDS: Lisinopril 10 MG TAB PO SCH (08:20)
[2017-03-31] MEDS: metFORMIN 500 MG TAB PO SCH ×2 (08:20→18:01)
[2017-03-31] MEDS: Chlorhexidine Gluconate 15 ML UDCUP SSP SCH ×3 (09:22→20:56)
[2017-03-31] MEDS: HYDROcodone/Acetaminophen 10/325 mg Tablet PO PRN ×4 (10:50→22:32)
[2017-04-01] MEDS: Morphine 4 MG/ML VIAL SLOW IVP PRN ×5 (01:18→22:22)
[2017-04-01] MEDS: Sodium Chloride 0.9% 1,000 ML IV SCH ×4 (01:31→13:58)
[2017-04-01] MEDS: Vancomycin HCl 1.25 GM in Sodium Chloride 0.9% 250 ML 250 ML IVPB SCH ×2 (02:58→15:29)
[2017-04-01] MEDS: HYDROcodone/Acetaminophen 10/325 mg Tablet PO PRN ×4 (02:58→20:27)
[2017-04-01] MEDS: Clindamycin/D5W 900 MG in Premix Bag 1 BAG IVPB SCH (06:05)
--- NOTE | 2017-04-01 07:45 | PDOC.FM ---
- Subjective Subjective: CC: facial pain HPI: states pain is 7/10 and goes down to 6/10 with norco and morphine. denies fever. Nursing stated patient slept well overnight. - Objective MAR Reviewed: Yes Vital Signs & Weight: Vital Signs (12 hours) Temp Pulse Resp BP Pulse Ox 04/01/17 03:05 98.7 F 83 16 153/94 H 99 03/31/17 23:30 98.5 F 83 16 151/90 H 100 03/31/17 21:15 98.5 F 78 16 154/101 H 99 Weight Admit Weight 81.647 kg Weight 81.647 kg I&O: 03/31/17 04/01/17 04/02/17 06:59 06:59 06:59 Intake Total 3170 2160 Balance 3170 2160 Result Diagrams: 03/30/17 04:10 03/30/17 04:10 <Saqib Mcgrath - Last Filed: 04/01/17 07:43> - Objective Vital Signs & Weight: Vital Signs (12 hours) Temp Pulse Resp BP BP Pulse Ox 04/01/17 10:58 98.2 F 83 16 135/81 98 04/01/17 09:02 154/104 H 04/01/17 08:00 98.1 F 82 18 98 04/01/17 07:57 98.1 F 82 18 154/104 H 98 04/01/17 07:48 154/104 H 04/01/17 03:05 98.7 F 83 16 153/94 H 99 Weight Admit Weight 81.647 kg Weight 81.647 kg I&O: 03/31/17 04/01/17 04/02/17 06:59 06:59 06:59 Intake Total 3170 2160 Balance 3170 2160 Result Diagrams: 03/30/17 04:10 03/30/17 04:10 <Linden Villalpando - Last Filed: 04/01/17 14:23> Phys Exam - Physical Examination Constitutional: NAD HEENT: moist MMs purulent d/c from tooth socket and external I&D opening. unchanged erythema and induration. Respiratory: no wheezing, clear to auscultation bilateral Cardiovascular: RRR, no significant murmur Gastrointestinal: soft Neurological: non-focal, moves all 4 limbs Psychiatric: normal affect, A&O x 3 <Saqib Mcgrath - Last Filed: 04/01/17 07:43> Dx/Plan (1) Migratory dental abscess Code(s): K04.7 - PERIAPICAL ABSCESS WITHOUT SINUS Status: Acute Plan: Vanc/Zosyn Day 4. culture positive for MRSA sensitive to vanc and clinda - d/c clinda, resume zosyn per OMFS recommendations - PO norco 10/325 for terminal operations manager pain management with morphine 2 mg IV for breakthrough pain. will add toradol 15 mg q6hr prn - VSS. afebrile - vanc subtherapeutic. repeat trough after increased dosing. (2) Diabetes mellitus Code(s): E11.9 - TYPE 2 DIABETES MELLITUS WITHOUT COMPLICATIONS Status: Acute QualifierTitle: Diabetes mellitus type: type 2 Diabetes mellitus complication status: with oral complications Diabetes mellitus complication detail: with other oral complications Diabetes mellitus terminal operations manager insulin use : without group home use Qualified Code(s): E11.638 - Type 2 diabetes mellitus with other oral complications Plan: - continue levemir 20 U BID. blood glucose improved. - mild SSI - will need to be on metformin at time of d/c and switch to NPH 70/30 due to funding. (3) Hypertension Code(s): I10 - ESSENTIAL (PRIMARY) HYPERTENSION Status: Acute QualifierTitle: Hypertension type: essential hypertension Qualified Code( s): I10 - Essential (primary) hypertension Plan: BP 153/94 - will increase lisinopril to 20mg (4) Drug abuse Code(s): F19.10 - OTHER PSYCHOACTIVE SUBSTANCE ABUSE, UNCOMPLICATED Status: Acute <Saqib Mcgrath - Last Filed: 04/01/17 07:43> Attending Addendum - Attending Addendum I personally evaluated the patient and discussed the management with Dr. Mcgrath. I agree with the History, Examination, Assessment and Plan documented above with any addition or exceptions noted below. She feels a little better. Seen eating oatmeal for breakfast in room. Exam repeated by me in agreement with above. Glucose 219-133 and coming down. Continue Vanc and Zosyn to cover gram + and anaerobes. Monitor glucose. [facility] <Linden Villalpando - Last Filed: 04/01/17 14:23>
[2017-04-01] MEDS: Lisinopril 10 MG TAB PO SCH (07:48)
[2017-04-01] MEDS: metFORMIN 500 MG TAB PO SCH ×2 (07:49→17:22)
[2017-04-01] MEDS: Chlorhexidine Gluconate 15 ML UDCUP SSP SCH ×3 (07:50→20:27)
[2017-04-01] MEDS ORDERED: Lisinopril 20 MG TAB PO SCH (09:00)
[2017-04-01] MEDS ORDERED: Lisinopril 10 MG TAB PO SCH (09:00)
[2017-04-01] MEDS: Ketorolac Tromethamine 30 MG/ML VIAL IVP PRN ×3 (09:02→21:41)
[2017-04-01] MEDS: Piperacillin/Tazobactam 3.375 GM in Sodium Chloride 0.9% 100 ML IVPB SCH ×3 (09:11→20:28)
[2017-04-01] MEDS: Insulin Detemir 100 UNITS/ML 20 UNITS in Pre-Filled Syringe 1 EACH SC SCH ×2 (09:57→20:28)
[2017-04-01 14:39] LABS: Vancomycin, Trough 18.6 ug/mL
[2017-04-02] MEDS: HYDROcodone/Acetaminophen 10/325 mg Tablet PO PRN ×3 (01:02→16:52)
[2017-04-02] MEDS: Piperacillin/Tazobactam 3.375 GM in Sodium Chloride 0.9% 100 ML IVPB SCH ×4 (02:04→20:50)
[2017-04-02] MEDS: Sodium Chloride 0.9% 1,000 ML IV SCH ×2 (02:21→10:36)
[2017-04-02] MEDS: Morphine 4 MG/ML VIAL SLOW IVP PRN ×5 (02:31→22:46)
[2017-04-02] MEDS: Vancomycin HCl 1.25 GM in Sodium Chloride 0.9% 250 ML 250 ML IVPB SCH ×2 (03:04→16:48)
[2017-04-02 05:02] LABS: #Eosinphils 0.4 thou/uL (0.0-0.7); #Lymphocytes 3.5 thou/uL (1.20-3.40); #Monocytes 0.5 thou/uL (0.11-0.59); #Neutrophils 4.9 thou/uL (1.40-6.50); %Basophils 0.4 % (0.0-1.0); %Eosinophils 4.3 % (0.0-10.0); %Lymphocytes 37.4 % (21.0-51.0); %Monocytes 5.3 % (0.0-10.0); %Neutrophils 52.6 % (42.0-75.0); Hemoglobin 12.3 g/dL (12.0-16.0); Mean Corpuscular HGB CONC 32.8 g/dL (32.0-36.0); Mean Corpuscular Hemoglobin 31.1 pg (27.0-31.0); Mean Corpuscular Volume 94.8 fl (81.0-99.0); Mean Platelet Volume 7.6 fL (7.4-10.4); Platelet Count 312 thou/uL (130-400); RBC Distribution Width 11.3 % (11.5-14.5); Red Blood Cell (RBC) Count 3.95 mill/uL (4.20-5.40); White Blood Cell (WBC) Count 9.4 thou/uL (4.8-10.8)
[2017-04-02 05:09] LABS: Anion Gap 10 mmol/L (10-20); BUN (Urea Nitrogen) 6 mg/dL (7.0-18.7); Calc. Creatinine Clearance 103 mL/min (70-130); Calcium 9.4 mg/dL (7.8-10.44); Carbon Dioxide 28 mmol/L (22-29); Chloride 106 mmol/L (98-107); Estimated GFR-MDRD 65; Glucose 109 mg/dL (70-105); Potassium 3.7 mmol/L (3.5-5.1); Sodium 140 mmol/L (136-145)
--- NOTE | 2017-04-02 07:53 | PDOC.FM ---
- Subjective Subjective: Ms. Harrison states that she is doing okay this morning. She states that her pain has been better controlled lately. She also states that she feels like her hernia is getting bigger. She has no had a BM since admission but is passing gas. The hernia is not causing her any pain at this time. - Objective MAR Reviewed: Yes Vital Signs & Weight: Vital Signs (12 hours) Temp Pulse Resp BP Pulse Ox 04/02/17 04:32 98.4 F 86 18 146/94 H 99 04/02/17 00:53 98.4 F 86 18 160/97 H 98 04/01/17 20:00 98.3 F 74 18 165/100 H 98 Weight Admit Weight 81.647 kg Weight 81.647 kg I&O: 04/01/17 04/02/17 04/03/17 06:59 06:59 06:59 Intake Total 2160 3908 Balance 2160 3908 Result Diagrams: 04/02/17 04:28 04/02/17 04:28 Phys Exam - Physical Examination Constitutional: NAD HEENT: PERRLA, moist MMs Neck: no JVD, supple, full ROM Respiratory: no wheezing, no rales, no rhonchi, clear to auscultation bilateral Gastrointestinal: soft, non-tender, no distention Firm nontender reducible ventral hernia Musculoskeletal: no edema Neurological: non-focal, moves all 4 limbs Psychiatric: normal affect, A&O x 3 Dx/Plan (1) Migratory dental abscess Code(s): K04.7 - PERIAPICAL ABSCESS WITHOUT SINUS Status: Acute Plan: Vanc and Zosyn Day 5. PO norco 10/325 for pain management with morphine 2 mg PRN for breakthrough pain , with toradol 15 mg q6h prn added yesterday -VSS, patient has remained afebrile -Vancomycin is at therapeutic goal (2) Diabetes mellitus Code(s): E11.9 - TYPE 2 DIABETES MELLITUS WITHOUT COMPLICATIONS Status: Acute Qualifiers: Diabetes mellitus type: type 2 Diabetes mellitus complication status: with oral complications Diabetes mellitus complication detail: with other oral complications Diabetes mellitus terminal manager insulin use: without terminal manager use Qualified Code(s): E11.638 - Type 2 diabetes mellitus with other oral complications Plan: Continue levemir 20 U BID. Mild SSI -patient will likely need to be switched to NPH 70/30 and metformin by time of discharge due to funding (3) Hypertension Code(s): I10 - ESSENTIAL (PRIMARY) HYPERTENSION Status: Acute Qualifiers: Hypertension type: essential hypertension Qualified Code(s): I10 - Essential (primary) hypertension Plan: BP 146/94 Will continue to monitor and consider increasing lisinopril dose. (4) Drug abuse Code(s): F19.10 - OTHER PSYCHOACTIVE SUBSTANCE ABUSE, UNCOMPLICATED Status: Acute
[2017-04-02] MEDS: Insulin Detemir 100 UNITS/ML 20 UNITS in Pre-Filled Syringe 1 EACH SC SCH ×2 (08:46→20:45)
[2017-04-02] MEDS: metFORMIN 500 MG TAB PO SCH ×2 (08:47→16:56)
[2017-04-02] MEDS: Lisinopril 20 MG TAB PO SCH (08:48)
[2017-04-02] MEDS: Chlorhexidine Gluconate 15 ML UDCUP SSP SCH ×3 (08:48→20:45)
[2017-04-02] MEDS: Senokot S 8.6-50 MG TAB PO SCH ×2 (09:19→20:45)
[2017-04-02] MEDS: Polyethylene Glycol 3350 17 GM Packet PO SCH (09:19)
--- NOTE | 2017-04-02 15:38 | ADD-PRG ---
ADDENDUM DATE OF SERVICE: 04/02/2017 This is an addendum to the note of Dr. Simone Alvarenga. Ms. Harrison's chin is much less swollen. Her culture did grow out methicillin-resistant Staph aureus and she is currently on vancomycin as well as Cleocin and Zosyn. She is still being followed by ora surgery team. Clinically, she is improved. As stated, swelling in her chin is much reduced and sh e is afebrile.
[2017-04-02] MEDS: Ketorolac Tromethamine 30 MG/ML VIAL IVP PRN (15:46)
[2017-04-03] MEDS: HYDROcodone/Acetaminophen 10/325 mg Tablet PO PRN ×4 (01:36→20:42)
[2017-04-03 02:39] LABS: Vancomycin, Trough 28.2 ug/mL
[2017-04-03] MEDS: Piperacillin/Tazobactam 3.375 GM in Sodium Chloride 0.9% 100 ML IVPB SCH ×4 (04:34→20:43)
[2017-04-03] MEDS: Morphine 4 MG/ML VIAL SLOW IVP PRN ×4 (05:05→22:51)
--- NOTE | 2017-04-03 06:49 | PDOC.FM ---
- Subjective Subjective: Ana Rosa Harrison is doing well this morning, she states that is was in some pain last night but it has been controlled since receiving medication. She denies any other acute events overnight. Overall, she feels like she is improving. - Objective MAR Reviewed: Yes Vital Signs & Weight: Vital Signs (12 hours) Temp Pulse Resp BP Pulse Ox 04/02/17 20:00 98.5 F 91 18 156/101 H 99 Weight Admit Weight 81.647 kg Weight 81.647 kg I&O: 04/01/17 04/02/17 04/03/17 06:59 06:59 06:59 Intake Total 2160 3908 Balance 2160 3908 Result Diagrams: 04/02/17 04:28 04/02/17 04:28 <Simone Alvarenga - Last Filed: 04/03/17 08:46> - Objective Vital Signs & Weight: Vital Signs (12 hours) Temp Pulse Resp BP BP Pulse Ox 04/03/17 09:18 86 143/83 H 04/03/17 08:00 98.3 F 86 16 04/03/17 07:19 98.3 F 86 16 143/83 H 98 Weight Admit Weight 81.647 kg Weight 81.647 kg I&O: 04/02/17 04/03/17 04/04/17 06:59 06:59 06:59 Intake Total 3908 Balance 3908 Result Diagrams: 04/02/17 04:28 04/03/17 08:20 <Ariana Santos - Last Filed: 04/03/17 12:43> Phys Exam - Physical Examination Constitutional: NAD HEENT: PERRLA, moist MMs, sclera anicteric Swelling has decreased on chin, decreased erythema from prev exam Neck: supple, full ROM Respiratory: no wheezing, no rales, no rhonchi, clear to auscultation bilateral Cardiovascular: RRR, no significant murmur, no rub Gastrointestinal: soft, non-tender, no distention, positive bowel sounds Musculoskeletal: no edema, pulses present Neurological: non-focal, moves all 4 limbs Psychiatric: normal affect, A&O x 3 <Simone Alvarenga - Last Filed: 04/03/17 08:46> Dx/Plan (1) Migratory dental abscess Code(s): K04.7 - PERIAPICAL ABSCESS WITHOUT SINUS Status: Acute Plan: Vanc, Cleocin, and Zosyn Day 5. PO norco 10/325 for pain management with morphine 2 mg PRN for breakthrough pain , with toradol 15 mg q6h prn added yesterday -VSS, patient has remained afebrile -Vancomycin trough is at 28, will adjust dose this morning and order trough recheck (2) Diabetes mellitus Code(s): E11.9 - TYPE 2 DIABETES MELLITUS WITHOUT COMPLICATIONS Status: Acute QualifierTitle: Diabetes mellitus type: type 2 Diabetes mellitus complication status: with oral complications Diabetes mellitus complication detail: with other oral complications Diabetes mellitus correction insulin use : without correction use Qualified Code(s): E11.638 - Type 2 diabetes mellitus with other oral complications Plan: D/c levemir 20 U BID. Continue Mild SSI -start patient on 18 U of Humalin 70/30 BID (3) Hypertension Code(s): I10 - ESSENTIAL (PRIMARY) HYPERTENSION Status: Acute QualifierTitle: Hypertension type: essential hypertension Qualified Code( s): I10 - Essential (primary) hypertension Plan: Will continue to monitor and add 2.5 mg amlodipine to regimen (4) Drug abuse Code(s): F19.10 - OTHER PSYCHOACTIVE SUBSTANCE ABUSE, UNCOMPLICATED Status: Acute <Simone Alvarenga - Last Filed: 04/03/17 08:46> Attending Addendum - Attending Addendum I personally evaluated the patient and discussed the management with Dr. Dr. Alvarenga. I agree with the History, Examination, Assessment and Plan documented above with any addition or exceptions noted below. Patient's facial swelling continues to improve. She will continue IV antibiotics. <Ariana Santos - Last Filed: 04/03/17 12:43>
[2017-04-03] MEDS: Sodium Chloride 0.9% 1,000 ML IV SCH ×2 (08:07→16:09)
[2017-04-03 08:58] LABS: Anion Gap 8 mmol/L (10-20); BUN (Urea Nitrogen) 7 mg/dL (7.0-18.7); Calc. Creatinine Clearance 108 mL/min (70-130); Calcium 8.9 mg/dL (7.8-10.44); Carbon Dioxide 26 mmol/L (22-29); Chloride 104 mmol/L (98-107); Estimated GFR-MDRD 68; Glucose 221 mg/dL (70-105); Potassium 3.7 mmol/L (3.5-5.1); Sodium 134 mmol/L (136-145)
[2017-04-03] MEDS: Lisinopril 20 MG TAB PO SCH (09:18)
[2017-04-03] MEDS: Amlodipine 5 MG TAB PO SCH (09:18)
[2017-04-03] MEDS: metFORMIN 500 MG TAB PO SCH ×2 (09:19→16:10)
[2017-04-03] MEDS: Insulin NPH/Reg Insulin Hm 300 UNITS/3 ML VIAL SC SCH ×2 (09:21→18:44)
[2017-04-03] MEDS: Polyethylene Glycol 3350 17 GM Packet PO SCH (09:22)
[2017-04-03] MEDS: Senokot S 8.6-50 MG TAB PO SCH ×2 (09:22→20:42)
[2017-04-03] MEDS: Chlorhexidine Gluconate 15 ML UDCUP SSP SCH ×3 (09:22→20:43)
[2017-04-03] MEDS ORDERED: Vancomycin HCl 1.75 GM in Sodium Chloride 0.9% 500 ML IVPB SCH (15:00)
[2017-04-03 21:49] VITALS: TEMP 98.5
[2017-04-04] MEDS: HYDROcodone/Acetaminophen 10/325 mg Tablet PO PRN ×2 (01:23→11:03)
[2017-04-04] MEDS: Piperacillin/Tazobactam 3.375 GM in Sodium Chloride 0.9% 100 ML IVPB SCH ×2 (02:38→10:14)
[2017-04-04] MEDS: Morphine 4 MG/ML VIAL SLOW IVP PRN ×3 (03:00→12:52)
[2017-04-04] MEDS: Sodium Chloride 0.9% 1,000 ML IV SCH (05:30)
--- NOTE | 2017-04-04 06:45 | PDOC.FM ---
- Subjective Subjective: Ana Rosa Harrison is doing well this morning, states that her pain is well controlled. Denies any acute events overnight. No complaints. - Objective MAR Reviewed: Yes Vital Signs & Weight: Vital Signs (12 hours) Temp Pulse Resp BP Pulse Ox 04/03/17 20:00 98.5 F 95 16 145/90 H 99 Weight Admit Weight 81.647 kg Weight 81.647 kg I&O: 04/02/17 04/03/17 04/04/17 06:59 06:59 06:59 Intake Total 3908 Balance 3908 Result Diagrams: 04/02/17 04:28 04/04/17 06:31 <Simone Alvarenga - Last Filed: 04/04/17 09:29> - Objective Vital Signs & Weight: Vital Signs (12 hours) Temp Pulse Resp BP BP Pulse Ox 04/04/17 09:14 92 153/94 H 04/04/17 08:25 98.5 F 92 16 153/94 H 98 04/04/17 08:00 98.5 F 92 16 Weight Admit Weight 81.647 kg Weight 81.647 kg Result Diagrams: 04/02/17 04:28 04/04/17 06:31 <Ariana Santos - Last Filed: 04/04/17 12:52> Phys Exam - Physical Examination Constitutional: NAD HEENT: moist MMs, sclera anicteric Neck: supple, full ROM Respiratory: no wheezing, no rales, no rhonchi, clear to auscultation bilateral Cardiovascular: RRR, no significant murmur, no rub Gastrointestinal: soft, non-tender, no distention ventral nontender hernia Musculoskeletal: no edema Neurological: non-focal, moves all 4 limbs Psychiatric: normal affect, A&O x 3 <Simone Alvarenga - Last Filed: 04/04/17 09:29> Dx/Plan (1) Migratory dental abscess Code(s): K04.7 - PERIAPICAL ABSCESS WITHOUT SINUS Status: Acute Plan: Vanc, Zosyn Day 5. PO norco 10/325 for pain management with morphine 2 mg PRN for breakthrough pain , with toradol 15 mg q6h prn added yesterday -VSS, patient has remained afebrile -consider switching to PO antibiotics, cultures were sensitive to Clindamycin (2) Diabetes mellitus Code(s): E11.9 - TYPE 2 DIABETES MELLITUS WITHOUT COMPLICATIONS Status: Acute QualifierTitle: Diabetes mellitus type: type 2 Diabetes mellitus complication status: with oral complications Diabetes mellitus complication detail: with other oral complications Diabetes mellitus ad terminal makeup operator insulin use : without ad terminal makeup operator use Qualified Code(s): E11.638 - Type 2 diabetes mellitus with other oral complications Plan: D/c levemir 20 U BID. Continue Mild SSI -start patient on 18 U of Humalin 70/30 BID -Blood Sugars ranging from 79-179, no changes in regimen, continue ACHS accuchecks (3) Hypertension Code(s): I10 - ESSENTIAL (PRIMARY) HYPERTENSION Status: Acute QualifierTitle: Hypertension type: essential hypertension Qualified Code( s): I10 - Essential (primary) hypertension Plan: BP 145/90 Will continue to monitor, seems to have slight improvement after adding amlodipine (4) Drug abuse Code(s): F19.10 - OTHER PSYCHOACTIVE SUBSTANCE ABUSE, UNCOMPLICATED Status: Acute <Simone Alvarenga - Last Filed: 04/04/17 09:29> Attending Addendum - Attending Addendum I personally evaluated the patient and discussed the management with Dr. Alvarenga. I agree with the History, Examination, Assessment and Plan documented above with any addition or exceptions noted below. The patient is feeling better. She will be discharged home on po bactrim and clindamycin. She will f/u with OMFS. <Ariana Santos - Last Filed: 04/04/17 12:52>
[2017-04-04 06:52] LABS: Anion Gap 13 mmol/L (10-20); BUN (Urea Nitrogen) 10 mg/dL (7.0-18.7); Calc. Creatinine Clearance 91 mL/min (70-130); Calcium 9.3 mg/dL (7.8-10.44); Carbon Dioxide 24 mmol/L (22-29); Chloride 106 mmol/L (98-107); Estimated GFR-MDRD 56; Glucose 110 mg/dL (70-105); Potassium 3.9 mmol/L (3.5-5.1); Sodium 139 mmol/L (136-145)
[2017-04-04] MEDS ORDERED: Insulin NPH/Reg Insulin Hm 300 UNITS/3 ML VIAL SC SCH (08:00)
[2017-04-04 08:26] VITALS: BP 153/94
[2017-04-04] MEDS: Amlodipine 5 MG TAB PO SCH (09:14)
[2017-04-04] MEDS: metFORMIN 500 MG TAB PO SCH (09:14)
[2017-04-04] MEDS: Lisinopril 20 MG TAB PO SCH (09:14)
[2017-04-04] MEDS: Chlorhexidine Gluconate 15 ML UDCUP SSP SCH (10:14)
[2017-04-04] MEDS ORDERED: Clindamycin 150 MG CAP PO SCH (12:00)
[2017-04-04] MEDS ORDERED: Piperacillin-Tazo-Dextrose,Iso 3.375 GM in Premix Bag 1 BAG IVPB SCH (15:00)
--- NOTE | 2017-04-04 18:16 | DIS-2 ---
DATE OF ADMISSION: 03/29/2017 DATE OF DISCHARGE: 04/04/2017 RESIDENT: Simone Alvarenga MD ADMITTING ATTENDING: Wlat Crockett MD. DISCHARGE ATTENDING: Ariana Santos M.D. CONSULTATION: Oral Surgery, Dr. Seth Huertas. PROCEDURES: 1. CT of the neck soft tissue. Impression: Left-sided subperiosteal abscess overlying the left man dibular incisor teeth measuring 13 mm with adjacent phlegmon. Additional 6 mm abscess in the left pa rasymphyseal tissue suspected. Cutaneous 4 mm abscess in the left cheek tissues. Questionable hypod ensity in the left palatine tonsil measuring 6 mm, abscess not excluded. 2. Extraoral and intraoral incision and drainage of facial abscess. Simple extraction of teeth numb ers 23, 25, and 26. PRIMARY DIAGNOSIS: Sepsis secondary to dental abscess. SECONDARY DIAGNOSES: 1. Facial cellulitis. 2. Hyperglycemia. 3. Acute kidney injury. 4. Diabetes type 2. 5. Hypertension. DISCHARGE MEDICATIONS: Resume home medications includin. Lisinopril 10 mg p.o. daily. 2. Metformin 500 mg p.o. b.i.d. with meals. 3. Humalog 15 units subcu t.i.d. with meals. 4. Pantoprazole 40 mg p.o. daily. 5. Lisinopril - discontinued. 6. Metformin - discontinued. NEW HOME MEDICATIONS: 1. Tylenol #3 30 mg/30 mg tablet, 1 tablet p.o. q.6 hour p.r.n., #50. 2. Amlodipine 2.5 mg p.o. daily. 3. Clindamycin 300 mg p.o. q.6 hours. 4. Humalog 15 subcu t.i.d. with meals - discontinued. 5. Humulin 70/30, 18 units subcutaneously b.i.d. with meals. 6. Lisinopril 20 mg p.o. daily. 7. Metformin 1000 mg p.o. b.i.d. with meals. 8. Bactrim double strength 1 tab p.o. b.i.d. DISCONTINUED MEDICATIONS: 1. Lisinopril 10 mg p.o. daily. 2. Metformin 500 mg p.o. b.i.d. with meals. 3. Humalog 15 units subcu t.i.d. with meals. 4. Vancomycin 1.25 grams. 5. Morphine 2 mg. 6. Zosyn 2.25 grams. 7. Pantoprazole 40 mg p.o. daily. HISTORY OF PRESENT ILLNESS AND HOSPITAL COURSE: Ana Rosa Harrison is a 36-year-old female with past medical history of type 2 diabetes and hypertension, who presented to the ED with a 4-day history of chin redness and pain. Her symptoms began with a pimple on her chin that she popped and the next mor chelsea she woke up that she had erythema and swelling over her chin and lower lip. These symptoms wors ened over the next few days and at that time, she went to the ER. In the ER, the patient received cl indamycin, vancomycin, morphine, and a liter of normal saline. She was found to have sepsis secondar y to facial cellulitis. She was admitted and started on IV antibiotics, vancomycin and Zosyn. Oral Maxillofacial Surgery was consulted. The patient was also found to be hyperglycemic likely secondary to medication noncompliance. She was found to have an acute kidney injury and she was hypertensive. The patient was restarted on home medications for diabetes and hypertension. Her vitals and blood sugars were controlled throughout her admission. She was given IV fluids for her acute kidney injury which showed improvement throughout her admission. Her UA on admission detected methamphetamines an d opiates, and Once [facility] [place] - Dr. Huertas saw the patient, he decided to proceed with I&D of abscesses. He also extracted three teeth as well. The patient was continued on IV vancomycin and Zosyn. Cultur es were taken during the surgery. Cultures grew out methicillin-resistant Staphylococcus aureus that was sensitive to clindamycin, vancomycin, Bactrim, ciprofloxacin. Swelling and pain decreased over admission and the patient was cleared for discharge by OMFS on 04/04/2017. The patient was switched to clindamycin and Bactrim for 10 days due to culture sensitivities and given pain medication per dis charge. DISPOSITION: Anticipate that the patient will do well on discharge from the hospital if she continue s prescribed antibiotics and follows up with [facility] [place] - Dr. Huertas within 3 days as as directed. DISCHARGE INSTRUCTIONS: 1. Location: Home. 2. Diet: Heart healthy and diabetic diet. 3. Activity: As tolerated. 4. Follow up with Dr. Huertas in 3-4 days and with primary care provider in 1-2 weeks.
[2017-04-04] MEDS ORDERED: Sulfameth/Trimethoprim DS 800-160mg TAB PO SCH (21:00)
== END 2017-04-04 15:42 | disposition home or self-care (01) | DRG 853 ==
LOC: ERS 22:57 → T4-A 03-29 03:31
PROVIDERS: ADMIT Emergency Medicine; ATTEND Emergency Medicine
PROC: 0J910ZZ Drainage of Face Subcutaneous Tissue and Fascia, Open Approach (ICD-10-PCS; principal; 2017-03-29)
PROC: 0CDXXZ1 Extraction of Lower Tooth, Multiple, External Approach (ICD-10-PCS; 2017-03-29)
DX: A41.9 Sepsis, unspecified organism (principal); E11.00 Type 2 diabetes mellitus with hyperosmolarity without nonketotic hyperglycemic-hyperosmolar coma (NKHHC); N17.9 Acute kidney failure, unspecified; E11.630 Type 2 diabetes mellitus with periodontal disease; E87.0 Hyperosmolality and hypernatremia; L03.211 Cellulitis of face; L02.01 Cutaneous abscess of face; J36 Peritonsillar abscess; E11.65 Type 2 diabetes mellitus with hyperglycemia; E11.638 Type 2 diabetes mellitus with other oral complications; K04.7 Periapical abscess without sinus; I10 Essential (primary) hypertension; M27.2 Inflammatory conditions of jaws; Z91.14 Patient's other noncompliance with medication regimen; Z90.49 Acquired absence of other specified parts of digestive tract; F17.210 Nicotine dependence, cigarettes, uncomplicated; K05.6 Periodontal disease, unspecified; B95.62 Methicillin resistant Staphylococcus aureus infection as the cause of diseases classified elsewhere; F19.10 Other psychoactive substance abuse, uncomplicated
CPT/HCPCS: 10060; 36415; 36416; 70491; 80048; 80053; 80202; 80306; 81001; 82010; 82570; 83036; 83605; 83935; 84300; 85025; 86140; 87040; 87070; 87077; 87186; 87205; 96365; 96367; 96372; 96375; A4216; J1815; J1885; J2001; J2250; J2270; J2405; J2543; J2704; J3010; J3370; J3490; J7050

== ENCOUNTER 2018-01-31 18:13 | Inpatient (IN) | payer MEDICAID, SELFPAY ==
[2018-01-31 18:46] LABS: #Basophils 0.1 thou/uL (0.0-0.2); #Eosinphils 0.1 thou/uL (0.0-0.7); #Lymphocytes 2.7 thou/uL (1.20-3.40); #Monocytes 0.6 thou/uL (0.11-0.59); #Neutrophils 8.1 thou/uL (1.40-6.50); %Basophils 0.8 % (0.0-1.0); %Eosinophils 1.1 % (0.0-10.0); %Lymphocytes 23.6 % (21.0-51.0); %Monocytes 4.8 % (0.0-10.0); %Neutrophils 69.6 % (42.0-75.0); Hemoglobin 14.6 g/dL (12.0-16.0); Mean Corpuscular HGB CONC 33.9 g/dL (32.0-36.0); Mean Corpuscular Hemoglobin 30.4 pg (27.0-31.0); Mean Corpuscular Volume 89.8 fL (78.0-98.0); Mean Platelet Volume 8.3 fL (7.4-10.4); Platelet Count 295 thou/uL (130-400); RBC Distribution Width 11.8 % (11.5-14.5); Red Blood Cell (RBC) Count 4.81 mill/uL (4.20-5.40); White Blood Cell (WBC) Count 11.6 thou/uL (4.8-10.8)
[2018-01-31 19:06] LABS: ALT (SGPT) 10 U/L (8-55); AST (SGOT) 11 U/L (5-34); Albumin 3.4 g/dL (3.5-5.0); Alkaline Phosphatase 175 U/L (40-150); Anion Gap 12 mmol/L (10-20); BUN (Urea Nitrogen) 18 mg/dL (7.0-18.7); Bilirubin, Total Less than 0.2 mg/dL (0.2-1.2); CK (CPK) 49 U/L (29-168); Calc. Creatinine Clearance 0 mL/min (70-130); Carbon Dioxide 25 mmol/L (22-29); Chloride 93 mmol/L (98-107); Estimated GFR-MDRD 35; Globulin 3.5 g/dL (2.4-3.5); Magnesium 1.6 mg/dL (1.6-2.6); Phosphorus 3.4 mg/dL (2.3-4.7); Potassium 4.2 mmol/L (3.5-5.1); Protein, Total 6.9 g/dL (6.0-8.3); Sodium 126 mmol/L (136-145)
[2018-01-31 19:08] LABS: Glucose 785 mg/dL (70-105)
[2018-01-31] MEDS ORDERED: Metoclopramide HCl 10 MG/2 ML VIAL ONE (20:13)
[2018-01-31] MEDS ORDERED: Enalaprilat Dihydrate 1.25 MG/ML VIAL ONE (20:15)
[2018-01-31] MEDS ORDERED: Insulin Regular 300 UNITS/3 ML VIAL ONE (20:50)
[2018-01-31 20:51] LABS: Actual Bicarbonate (HCO3a) 19.7 mEq/L (22-28); Analyzer IN Cardio ER; Base Excess (BEa) -4.1 mEq/L (-2.0 to +3.0); CO2 Tension 32.4 mmHg (35.0-45.0); Calcium, Ionized 1.07 mmol/L (1.12-1.30); Carboxyhemoglobin (COHb) 1.7 gm% (0.0-3.0); Hemoglobin (Hb) 13.5 g/dL (12.0-16.0); O2 Tension (PaO2) 79.7 mmHg (80.0-100.0); Potassium - ABG Lab 3.74 mmol/L (3.70-5.30)
[2018-01-31 20:52] LABS: Puncture Site RRA
--- NOTE | 2018-01-31 21:03 | CT ---
HEAD CT WITHOUT CONTRAST: 01/31/18 HISTORY: Dizziness and headache. COMPARISON: None. FINDINGS: No parenchymal hemorrhage. No extra-axial hematoma. No midline shift. Basilar cisterns are patent. Br ain volume, age appropriate. Cortical andrews-white matter differentiation is preserved. No evidence of hydrocephalus. Calvarium is intact. Adequate aeration of the sinuses and mastoid air c ells. IMPRESSION: No acute intracranial process. POS: H
[2018-01-31] MEDS ORDERED: Sodium Chloride 0.9% 1,000 ML IV SCH (22:13)
[2018-01-31] MEDS ORDERED: Acetaminophen 325 MG TAB PO PRN (22:13)
[2018-01-31] MEDS ORDERED: Ondansetron ODT 4 MG TAB SL PRN (22:13)
[2018-01-31] MEDS ORDERED: Ondansetron PF 4 MG/2 ML Vial IVP PRN (22:13)
[2018-01-31 22:34] VITALS: BMI 26.4
[2018-01-31] MEDS ORDERED: CCU Electrolyte Replacement 1 EACH FS SCH (23:10)
[2018-01-31] MEDS ORDERED: CCU Insulin Drip FS SCH (23:10)
[2018-01-31] MEDS ORDERED: Dextrose 50% Abboject 50 ML SYRINGE SLOW IVP PRN (23:11)
[2018-01-31] MEDS ORDERED: Dextrose 5% in Water 1,000 ML IV PRN (23:11)
[2018-01-31] MEDS ORDERED: HumaLOG 300 UNITS/3 ML VIAL SC PRN ×2 (23:11)
[2018-01-31] MEDS ORDERED: Potassium Phosphate 9 MMOL in Sodium Chloride 0.9% 100 ML IVPB PRN (23:19)
[2018-01-31] MEDS ORDERED: Potassium Phosphate 15 MMOL in Sodium Chloride 0.9% 250 ML 250 ML IV PRN (23:19)
[2018-01-31] MEDS ORDERED: Potassium Chloride 40 MEQ in Sodium Chloride 0.9% 250 ML 250 ML IVPB PRN (23:19)
[2018-01-31] MEDS ORDERED: Potassium Chloride 40 MEQ in Premix Bag 1 BAG IVPB PRN (23:19)
[2018-01-31] MEDS ORDERED: Potassium Phosphate 12 MMOL in Sodium Chloride 0.9% 250 ML 250 ML IV PRN (23:19)
[2018-01-31] MEDS ORDERED: Magnesium Oxide 400 MG TAB PO PRN ×2 (23:19)
[2018-01-31] MEDS ORDERED: Magnesium 2 GM/NS 0.9% 100 ML 2 GM in Premix Bag 1 BAG IVPB PRN (23:19)
[2018-01-31] MEDS ORDERED: CCU ELECTROLYTE REPLACEMENT PROTOCOL FS PRN (23:19)
[2018-02-01] MEDS: Sodium Chloride 0.9% 1,000 ML IV SCH ×2 (00:09→08:49)
[2018-02-01] MEDS: Nicotine 14 MG PATCH TD SCH ×2 (00:09→20:22)
[2018-02-01 00:32] LABS: Albumin 2.9 g/dL (3.5-5.0)
[2018-02-01 00:33] LABS: Chloride 104 mmol/L (98-107); Potassium 3.5 mmol/L (3.5-5.1); Sodium 133 mmol/L (136-145)
[2018-02-01 00:34] LABS: Calcium 8.2 mg/dL (7.8-10.44); Glucose 367 mg/dL (70-105)
[2018-02-01 00:35] LABS: Protein, Total 5.9 g/dL (6.0-8.3)
[2018-02-01 00:36] LABS: Anion Gap 12 mmol/L (10-20); Bilirubin, Total Less than 0.2 mg/dL (0.2-1.2); Carbon Dioxide 21 mmol/L (22-29)
[2018-02-01 00:37] LABS: Alkaline Phosphatase 150 U/L (40-150)
[2018-02-01 00:38] LABS: Calc. Creatinine Clearance 78 mL/min (70-130); Estimated GFR-MDRD 53
[2018-02-01 00:39] LABS: AST (SGOT) 13 U/L (5-34); BUN (Urea Nitrogen) 16 mg/dL (7.0-18.7)
[2018-02-01 00:40] LABS: ALT (SGPT) 9 U/L (8-55)
[2018-02-01] MEDS: Potassium Chloride 20 MEQ TAB PO PRN ×2 (01:25→08:51)
[2018-02-01] MEDS ORDERED: Acetaminophen 1,000 MG in Premix Bag 1 BAG IVPB PRN (02:06)
[2018-02-01] MEDS ORDERED: hydrALAZINE 20 MG/ML VIAL SLOW IVP PRN (02:07)
[2018-02-01 03:20] LABS: #Basophils 0.1 thou/uL (0.0-0.2); #Eosinphils 0.3 thou/uL (0.0-0.7); #Lymphocytes 4.7 thou/uL (1.20-3.40); #Monocytes 0.8 thou/uL (0.11-0.59); #Neutrophils 6.6 thou/uL (1.40-6.50); %Basophils 1.1 % (0.0-1.0); %Eosinophils 2.6 % (0.0-10.0); %Lymphocytes 37.4 % (21.0-51.0); %Monocytes 6.2 % (0.0-10.0); %Neutrophils 52.7 % (42.0-75.0); Hemoglobin 13.1 g/dL (12.0-16.0); Mean Corpuscular HGB CONC 33.7 g/dL (32.0-36.0); Mean Corpuscular Hemoglobin 30.4 pg (27.0-31.0); Mean Corpuscular Volume 90.2 fL (78.0-98.0); Platelet Count 264 thou/uL (130-400); RBC Distribution Width 11.7 % (11.5-14.5); Red Blood Cell (RBC) Count 4.31 mill/uL (4.20-5.40); White Blood Cell (WBC) Count 12.5 thou/uL (4.8-10.8)
[2018-02-01 03:39] LABS: ALT (SGPT) 7 U/L (8-55); AST (SGOT) 8 U/L (5-34); Albumin 2.9 g/dL (3.5-5.0); Alkaline Phosphatase 158 U/L (40-150); Anion Gap 11 mmol/L (10-20); BUN (Urea Nitrogen) 11 mg/dL (7.0-18.7); Bilirubin, Total Less than 0.2 mg/dL (0.2-1.2); Calc. Creatinine Clearance 98 mL/min (70-130); Calcium 8.4 mg/dL (7.8-10.44); Carbon Dioxide 22 mmol/L (22-29); Chloride 108 mmol/L (98-107); Estimated GFR-MDRD 69; Globulin 2.7 g/dL (2.4-3.5); Glucose 156 mg/dL (70-105); Potassium 3.3 mmol/L (3.5-5.1); Protein, Total 5.6 g/dL (6.0-8.3); Sodium 138 mmol/L (136-145)
[2018-02-01] MEDS ORDERED: HumaLOG 300 UNITS/3 ML VIAL SC PRN (06:04)
[2018-02-01] MEDS: HumaLOG 300 UNITS/3 ML VIAL SC PRN ×3 (06:24→18:07)
--- NOTE | 2018-02-01 07:41 | HP ---
CHIEF COMPLAINT: Headache, weakness, and dizziness. HISTORY OF PRESENT ILLNESS: This is a 37-year-old female with past medical history of hypertension, hyperlipidemia, presenting to our ED with dizziness, weakness, which has been ongoing for the past 3 weeks. Per patient, her medications were locked in the basement for 3 weeks and patient has not been able to take her medication. The patient also stated that she recently got Medicaid insurance, so s he was prompted to come to the hospital to be seen for her dizziness and weakness. In addition, she was also receive some medications and also filled her prescriptions using her Medicaid. The patient states that in the past 3 weeks she has been feeling very weak and dizzy due to her elevated blood pr essure and blood glucose. The patient stated that she was also having severe headaches and her boyfr ieaundrea basically suggested that she should come to the hospital due to her symptoms. The patient denie s any fever, shortness of breath, palpitations, chest pains, but admits to headaches, nausea, and vom iting. REVIEW OF SYSTEMS: Positive for high blood pressure, elevated glucose, nausea, vomiting, dizziness, headaches, generalized weakness. Otherwise, as documented in the HPI. All other systems were review ed and are negative. PAST MEDICAL HISTORY: Diabetes mellitus type 2, hypertension, nephrotic syndrome. PAST SURGICAL HISTORY: x2, cholecystectomy in 2015, tooth extraction in 2018. FAMILY HISTORY: Reviewed and noncontributory to this visit. PSYCHIATRIC HISTORY: No psych history. SOCIAL HISTORY: The patient lives at home with family. Denies alcohol use. The patient smokes ciga rettes about half a pack a day for the past 20 years. The patient uses drugs. The patient states th at she used methamphetamine 3-4 days ago. The patient stated that she used a little bit. ALLERGIES: The patient is allergic to ALEVE and ROCEPHIN. CURRENT MEDICATIONS: The patient is on lisinopril 10 mg, Humalog 15 units, pantoprazole, metformin 5 00 mg. PHYSICAL EXAMINATION: VITAL SIGNS: Blood pressure is 195/134, pulse of 110, respiratory rate of 18, temperature of 98.2. GENERAL: The patient is alert, awake, oriented x3, not in acute distress. The patient is lying in b ed nicely. The patient has very pleasant, speaking in full sentences. HEENT: Normocephalic, atraumatic. Pupils are equal, round, and reactive to light. Extraocular move ments are intact. No scleral icterus. No conjunctival pallor. Mucous membranes are dry. The patie nt is missing some front teeth. NECK: Supple, full range of motion. Trachea is midline. LUNGS: Clear to auscultation bilaterally. No wheezing, no rales, no rhonchi is appreciated. CARDIOVASCULAR: Positive S1, S2, regular rate and rhythm. No murmurs. No gallops. No rubs appreci ated. ABDOMEN: Soft, nontender, not distended. Positive bowel sounds in all quadrants. No pulsatile mass es. EXTREMITIES: The patient has 5/5 upper extremity strength and 5/5 lower extremity strength. No cm a noted. Good pulses bilaterally of the upper and lower extremities. NEUROLOGIC: Cranial nerves II-XII grossly intact. No neurologic deficits noted. SKIN: Warm, dry and intact. PSYCHIATRIC: Normal affect. EKG sinus tachycardia with a rate of 104. CT of the head negative for any intracranial abnormalities . In the ED, the patient received Humulin R 10 units, Reglan 10 mg, Vasotec 1.25 mg, normal saline 2 li ters. LABORATORY DATA: WBC is 11.6, hemoglobin is 14.6, hematocrit is 43.2, platelet is 295. ABG: pH is 7.4, pCO2 is 32.4, pO2 is 79.7. Electrolytes: Sodium is 126, potassium is 4.2, chloride is 93, BUN is 18, creatinine is 1.66, GFR is 35, glucose is 785. Serum osmolar is 308. Phosphorus is 3.4, magn esium is 1.6, total bilirubin is less than 0.2. AST is 11, ALT is 10, alkaline phosphatase is 175. ASSESSMENT AND PLAN: This is a 37-year-old female who is very noncompliant, presented with headaches and dizziness most likely due to: 1. Hypertensive urgency. The patient's blood pressure is currently 170 systolic. The patient has r eceived Vasotec. We will do p.r.n. hydralazine to control blood pressures. We will monitor the ligia ent closely. 2. Hyperglycemia. The patient's glucose has been uncontrolled. The patient's blood glucose current ly 785. At this point, we will start insulin drip and we will admit the patient to the [facility] to be mo nitored closely and return of the drip when the patient's blood glucose is less than 200. I will go for patient's glucose is between 140 to 180, then we will start sliding scale. 3. Hyponatremia, most likely due to hypertonic hyponatremia due to elevated glucose. At this point, we are going to treat patient's hyperglycemia and this will correct patient's hyponatremia. We will continue to monitor the patient. We will continue to give patient gentle hydration. 4. History of diabetes mellitus type 2, uncontrolled. At this point, we will start the patient on i nsulin drip and we will transition to sliding scale and eventually start the patient on her home medi cations. 5. Hypertension, uncontrolled. We will continue patient on current management. 6. Deep venous thrombosis and gastrointestinal prophylaxis.
[2018-02-01] MEDS: Lisinopril 10 MG TAB PO SCH (08:49)
[2018-02-01 08:51] LABS: Acetaminophen Less than 6.0 mcg/mL (10.0-30.0); Alcohol Less than 10 mg/dL (Less than 10); Salicylate Less than 8.0 mg/dL (15.0-30.0)
[2018-02-01 08:52] LABS: ALT (SGPT) 12 U/L (8-55); AST (SGOT) 22 U/L (5-34); Albumin 2.7 g/dL (3.5-5.0); Alkaline Phosphatase 110 U/L (40-150); Anion Gap 9 mmol/L (10-20); BUN (Urea Nitrogen) 13 mg/dL (7.0-18.7); Bilirubin, Total 0.2 mg/dL (0.2-1.2); Calc. Creatinine Clearance 97 mL/min (70-130); Calcium 8.2 mg/dL (7.8-10.44); Carbon Dioxide 20 mmol/L (22-29); Chloride 107 mmol/L (98-107); Estimated GFR-MDRD 65; Globulin 2.7 g/dL (2.4-3.5); Glucose 255 mg/dL (70-105); Potassium 4.2 mmol/L (3.5-5.1); Protein, Total 5.4 g/dL (6.0-8.3); Sodium 132 mmol/L (136-145)
[2018-02-01] MEDS ORDERED: Amlodipine 5 MG TAB PO SCH (09:00)
[2018-02-01 11:41] LABS: Amphetamine Detected (NotDetected); Barbiturates Screen Not Detected (NotDetected); Benzodiazepine Screen Not Detected (NotDetected); Cocaine Metabolite Screen Not Detected (NotDetected); Medtox Control Line Valid? VALID (VALID); Medtox Reader # READER 1; Methadone Not Detected (NotDetected); Methamphetamine Detected (NotDetected); Opiate Screen Not Detected (NotDetected); Oxycodone Screen Not Detected (NotDetected); Phencyclidine (PCP) Not Detected (NotDetected); THC/Cannabinoid Screen Not Detected (NotDetected); Tricyclic Screen Not Detected (NotDetected)
--- NOTE | 2018-02-01 11:48 | PDOC.PN ---
- Subjective Encounter Start Date: 02/01/18 Encounter Start Time: 07:45 Subjective: no chest pain or sob or dizziness -: headache is better -: is amb in room - Objective Resuscitation Status: Resuscitation Status FULL:Full Resuscitation MAR Reviewed: Yes Vital Signs & Weight: Vital Signs (12 hours) Temp Pulse Resp BP Pulse Ox 02/01/18 09:00 98.0 F 94 20 123/81 100 02/01/18 08:49 89 02/01/18 04:00 98.4 F 89 16 144/97 H 99 02/01/18 01:00 162/105 H 02/01/18 00:15 160/105 H Weight Weight 169 lb 1.6 oz I&O: 01/31/18 02/01/18 02/02/18 06:59 06:59 06:59 Intake Total 948 Output Total 750 Balance 198 Result Diagrams: 02/01/18 03:01 02/01/18 08:12 Additional Labs: Accuchecks 02/01/18 02/01/18 02/01/18 11:21 06:15 04:06 POC Glucose 245 H 275 H 164 H 02/01/18 02/01/18 02/01/18 02:46 01:35 00:21 POC Glucose 157 H 251 H 354 H 01/31/18 01/31/18 20:49 18:20 POC Glucose Greater than 550 H* Greater than 550 H* Phys Exam - Physical Examination HEENT: PERRLA, moist MMs Neck: no JVD, supple Respiratory: no wheezing, no rales Cardiovascular: RRR, no significant murmur Gastrointestinal: soft, non-tender, no distention, positive bowel sounds Musculoskeletal: no edema, pulses present Neurological: non-focal, moves all 4 limbs Psychiatric: normal affect, A&O x 3 Dx/Plan (1) Hypertensive urgency Code(s): I16.0 - HYPERTENSIVE URGENCY Status: Acute Comment: resolving, non compliant (2) DM type 2 (diabetes mellitus, type 2) Status: Acute Qualifiers: 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: without senior living use Diabetes mellitus complication status: with hyperglycemia Qualified Code(s): E11.65 - Type 2 diabetes mellitus with hyperglycemia (3) Hypokalemia Code(s): E87.6 - HYPOKALEMIA Status: Acute (4) Hypoalbuminemia Code(s): E88.09 - OTH DISORDERS OF PLASMA-PROTEIN METABOLISM, NEC Status: Chronic (5) Drug abuse Code(s): F19.10 - OTHER PSYCHOACTIVE SUBSTANCE ABUSE, UNCOMPLICATED Status: Chronic Comment: meth - Plan is noncompliant with meds -: counselled reg substance use -: on norvasc and lisinopril -: will add metformin bid, oral diet -: to amb as tolerated, tx to med floor * . Review of Systems - Medications/Allergies Allergies/Adverse Reactions: Allergies Allergy/AdvReac Type Severity Reaction Status Date / Time ceftriaxone sodium Allergy Verified 03/29/17 04:09 [From Rocephin] naproxen sodium [From Aleve] Allergy Verified 03/29/17 04:09 Medications: Current Medications Amlodipine Besylate (Norvasc) 2.5 mg PO DAILY [facility] Last Admin: 02/01/18 08:49 Dose: 2.5 mg Dextrose/Water (Dextrose 50%) 25 gm SLOW IVP PRN PRN PRN Reason: Hypoglycemia Glucagon (Glucagon) 1 mg IM PRN PRN PRN Reason: Hypoglycemia Hydralazine HCl (Apresoline) 10 mg SLOW IVP Q4H PRN PRN Reason: SBP > 180 OR DBP > 100 Dextrose/Water (D5w) 1,000 mls @ 0 mls/hr IV .Q0M PRN PRN Reason: Hypoglycemia Acetaminophen 1,000 mg/ Device 100 mls @ 400 mls/hr IVPB Q6H PRN PRN Reason: Fever/Mild Pain Stop: 02/02/18 02:07 Last Admin: 02/01/18 02:51 Dose: 100 mls Insulin Human Lispro (Humalog) 0 units SC .MODERATE SLIDING SC PRN; Protocol PRN Reason: MODERATE SLIDING SCALE Last Admin: 02/01/18 11:32 Dose: 4 unit Insulin Human Lispro (Humalog) 0 units SC .BEDTIME SLIDING SC PRN; Protocol PRN Reason: BEDTIME SLIDING SCALE Lisinopril (Zestril) 10 mg PO DAILY [facility] Last Admin: 02/01/18 08:49 Dose: 10 mg Nicotine (Nicoderm Patch) 14 mg TD Q24HR [facility] Last Admin: 02/01/18 00:09 Dose: 14 mg Ccu Electrolyte (Replacement Protocol) 0 each FS PRN PRN PRN Reason: FOR ELECTROLYTE REPLACEMENT Pantoprazole Sodium (Protonix) 40 mg PO DAILY [facility] Last Admin: 02/01/18 08:49 Dose: 40 mg Sodium Chloride (Flush - Normal Saline) 10 ml IVF Q12HR [facility] Last Admin: 02/01/18 08:59 Dose: Not Given Sodium Chloride (Flush - Normal Saline) 10 ml IVF PRN PRN PRN Reason: Saline Flush
[2018-02-01 12:09] LABS: ALT (SGPT) 15 U/L (8-55); AST (SGOT) 22 U/L (5-34); Albumin 2.9 g/dL (3.5-5.0); Alkaline Phosphatase 116 U/L (40-150); Anion Gap 9 mmol/L (10-20); BUN (Urea Nitrogen) 12 mg/dL (7.0-18.7); Bilirubin, Total 0.2 mg/dL (0.2-1.2); Calc. Creatinine Clearance 100 mL/min (70-130); Calcium 8.6 mg/dL (7.8-10.44); Carbon Dioxide 21 mmol/L (22-29); Chloride 108 mmol/L (98-107); Estimated GFR-MDRD 68; Globulin 2.9 g/dL (2.4-3.5); Glucose 238 mg/dL (70-105); Potassium 4.7 mmol/L (3.5-5.1); Protein, Total 5.8 g/dL (6.0-8.3); Sodium 133 mmol/L (136-145)
--- NOTE | 2018-02-01 13:22 | PQF ---
DATE: 02-01-18 ATTN: YEN MINA Please exercise your independent, professional judgment in responding to the clarification form. Clinical indicators are provided on the bottom of this form for your review Please check appropriate box(s): [x ] Acute Renal Failure (ARF) / Acute Kidney Injury (AMARILIS) [ ] Insignificant Lab Values [ ] Other diagnosis [ ] Unable to determine In addition, please specify: Present on Admission (POA): [ x] Yes [ ] No [ ] Unable to determine National Kidney Foundation Guidelines for CKD Staging Stage I Kidney damage with normal or increased GFR GFR > 90 Stage II Kidney damage with mildly decreased GFR GFR 60-89 Stage III Kidney damage with moderately decreased GFR GFR 30-59 Stage IV Kidney damage with severely decreased GFR GFR 16-29 Stage V Kidney failure GFR<15 ESRD End Stage Renal Disease On dialysis Acute Renal Failure/Acute Kidney Failure defined as: Increases in SCr by (>) 0.3 mg/dl within 48 hours OR- Increases in SCr by (>) 1.5 times baseline, known or presumed to have occurred within the prior 7 days OR- Urine volume < 0.5 ml/kg/hour for 6 hours (KDIGO supplement 2012 for RIFLE/FLORY criteria) For continuity of documentation, please document condition throughout progress notes and discharge summary. Thank You. CLINICAL INDICATORS - SIGNS / SYMPTOMS / LABS GFR: 01-31-18: 35 02-01-18: 53 69 65 68 CREATININE: 01-31-18: 1.66 02-01-18: 1.15 0.92 0.96 0.93 BUN: 01-31-18: 18 02-01-18: 16 11 13 RISK FACTORS: H&P: HTN, HLP, SEVERE HASKINS, HIGH BLOOD PRESSURE, NAUSEA, VOMITING, DM2 , NEPHROTIC SYNDROME, SMOKER, USED METH 3-4 DAYS AGO, NONCOMPLIANT WITH MEDS, HYPERGLYCEMIA TREATMENTS: ER: HUMULIN R, VASOTEC, NS 2L (This form is maintained as a part of the permanent medical record) 2014 [email or web address] All Rights Reserved Deanne Beke, RN [email or web address] Office: [phone] ANA
[2018-02-01] MEDS: metFORMIN 500 MG TAB PO SCH ×2 (15:25→20:21)
[2018-02-02] MEDS: HumaLOG 300 UNITS/3 ML VIAL SC PRN (06:48)
[2018-02-02 07:20] VITALS: TEMP 98.4
[2018-02-02] MEDS: metFORMIN 500 MG TAB PO SCH (08:03)
[2018-02-02] MEDS: Lisinopril 10 MG TAB PO SCH (08:04)
[2018-02-02] MEDS ORDERED: Amlodipine 10 MG TAB PO SCH (09:00)
[2018-02-02] MEDS ORDERED: Lisinopril 10 MG TAB PO SCH (09:00)
--- NOTE | 2018-02-02 11:36 | PDOC.PN ---
- Subjective Encounter Start Date: 02/02/18 Encounter Start Time: 08:00 Subjective: feels better, no headache or dizziness - Objective Resuscitation Status: Resuscitation Status FULL:Full Resuscitation MAR Reviewed: Yes Vital Signs & Weight: Vital Signs (12 hours) Temp Pulse Resp BP BP Pulse Ox 02/02/18 11:06 160/110 H 02/02/18 09:54 152/107 H 02/02/18 08:04 88 152/107 H 02/02/18 08:00 100 02/02/18 07:19 98.4 F 88 18 152/107 H 100 Weight Weight 170 lb I&O: 02/01/18 02/02/18 02/03/18 06:59 06:59 05:59 Intake Total 948 Output Total 750 Balance 198 Result Diagrams: 02/01/18 03:01 02/01/18 11:38 Additional Labs: Accuchecks 02/02/18 02/01/18 02/01/18 06:47 20:22 16:45 POC Glucose 348 H 385 H 255 H 02/01/18 11:21 POC Glucose 245 H Phys Exam - Physical Examination HEENT: PERRLA, moist MMs Neck: no JVD, supple Respiratory: no wheezing, no rales Cardiovascular: RRR, no significant murmur Gastrointestinal: soft, non-tender, positive bowel sounds Musculoskeletal: no edema, pulses present Neurological: non-focal, moves all 4 limbs Psychiatric: normal affect, A&O x 3 Dx/Plan (1) Hypertensive urgency Code(s): I16.0 - HYPERTENSIVE URGENCY Status: Resolved (2) DM type 2 (diabetes mellitus, type 2) Status: Acute Qualifiers: Diabetes mellitus jail insulin use: without intermodal dispatcher use Diabetes mellitus complication status: with hyperglycemia Qualified Code(s): E11.65 - Type 2 diabetes mellitus with hyperglycemia (3) Hypokalemia Code(s): E87.6 - HYPOKALEMIA Status: Resolved (4) Hypoalbuminemia Code(s): E88.09 - OTH DISORDERS OF PLASMA-PROTEIN METABOLISM, NEC Status: Chronic (5) Drug abuse Code(s): F19.10 - OTHER PSYCHOACTIVE SUBSTANCE ABUSE, UNCOMPLICATED Status: Chronic Comment: meth - Plan hemostable -: add glipizide to metformin -: increase lisinopril to bid -: dc pt home * .
[2018-02-02 12:11] VITALS: BP 163/94
--- NOTE | 2018-02-02 13:08 | DIS ---
DATE OF ADMISSION: 01/31/2018 DATE OF DISCHARGE: 02/02/2018 DISCHARGE DISPOSITION: To home. PRIMARY DISCHARGE DIAGNOSES: Hypertensive urgency, resolved; diabetes mellitus type 2, uncontrolled due to noncompliance; substance abuse; hypoalbuminemia. PROCEDURES DONE DURING HOSPITALIZATION: Patient had CT brain done on the day of admission, which liana wed no acute intracranial abnormalities. H and H 13 and 38, platelet count 264. On discharge, BUN a nd creatinine are 12 and 0.9, albumin 2.9. Had an initial BUN and creatinine of 18 and 1.6 with seru m glucose of 785 on admission. Urine drug screen is positive for amphetamine and methamphetamine. B eta hydroxybutyrate was 0.09. DISCHARGE MEDICATIONS: Metformin 500 mg p.o. 3 times daily, glipizide 5 mg twice daily, Norvasc 10 m g daily, lisinopril 10 mg twice daily, Protonix 40 mg daily. ALLERGIES: CEFTRIAXONE and NAPROSYN. DISCHARGE PLAN: Patient will check fingerstick glucose twice daily and record to follow up with health system physician in 1 week. BRIEF COURSE DURING HOSPITALIZATION: Patient initially got admitted on the with complaints of he adache, weakness, dizziness. The patient had hypertensive urgency along with serum glucose of 700. She was noncompliant with medications. The patient also had urine drug screen positive for methamphe tamine. She was initially placed in IMCU and later downgraded to medical floor. Her medications hav e been slowly uptitrated. Patient was counseled with regards to substance use and regular followups with primary care physician. She needs to check her fingerstick glucose twice daily for a period of 10 days and follow up with primary care physician for optimization of her medications. She is hemody namically stable, ambulating and eating well prior to discharge. Please see a [id number] documenta tion on [employer] for the day of discharge.
[2018-02-02] MEDS ORDERED: glipiZIDE 5 MG TAB PO SCH (16:30)
== END 2018-02-02 13:39 | disposition home or self-care (01) | DRG 638 ==
LOC: ERS 18:13 → IMCU/EMU 22:04 → T4-A 02-01 14:57
PROVIDERS: ADMIT Internal Medicine; ATTEND Internal Medicine
DX: E11.65 Type 2 diabetes mellitus with hyperglycemia (principal); E87.1 Hypo-osmolality and hyponatremia; N17.9 Acute kidney failure, unspecified; I16.0 Hypertensive urgency; I10 Essential (primary) hypertension; E78.5 Hyperlipidemia, unspecified; E11.21 Type 2 diabetes mellitus with diabetic nephropathy; F17.210 Nicotine dependence, cigarettes, uncomplicated; Z91.14 Patient's other noncompliance with medication regimen; F15.10 Other stimulant abuse, uncomplicated; E87.6 Hypokalemia; Z79.4 Long term (current) use of insulin; Z90.49 Acquired absence of other specified parts of digestive tract
CPT/HCPCS: 36415; 36416; 70450; 80053; 80306; 80307; 82010; 82550; 82805; 83735; 83930; 84100; 85025; 90471; 90686; 93005; 96361; 96365; 96375; G0008; J0131; J0360; J1815; J2765; J7050

== ENCOUNTER 2018-05-23 20:37 | Emergency (ER) | payer MEDICAID, OTHER ==
[2018-05-23] MEDS ORDERED: Lidocaine 1% w/Epinephrine 1:100K 20 ML VIAL ONE (21:51)
[2018-05-23] MEDS ORDERED: Ondansetron ODT 4 MG TAB ONE (22:17)
== END 2018-05-23 23:28 | disposition home or self-care (01) ==
LOC: ERS 20:37
DX: L02.413 Cutaneous abscess of right upper limb (principal); E11.9 Type 2 diabetes mellitus without complications; I10 Essential (primary) hypertension; F17.210 Nicotine dependence, cigarettes, uncomplicated; Z79.84 Long term (current) use of oral hypoglycemic drugs; Z79.899 Other long term (current) drug therapy
CPT/HCPCS: 10061; 87070; 87077; 87186; 87205; J2001; Q0162

== ENCOUNTER 2018-07-06 23:20 | Emergency (ER) | payer OTHER, SELFPAY ==
--- NOTE | 2018-07-06 23:42 | RAD ---
FExam: Chest one view HISTORY:Dyspnea Comparison: None FINDINGS: Lungs: No masses or consolidation. Cardiac silhouette: Normal size Pulmonary vessels: Normal Pleural Spaces: Clear Pneumothorax: None Osseous abnormalities: None of acuity. IMPRESSION: No focal consolidation.
[2018-07-07 00:14] LABS: #Basophils 0.1 thou/uL (0.0-0.2); #Eosinphils 0.1 thou/uL (0.0-0.7); #Lymphocytes 4.3 thou/uL (1.20-3.40); #Monocytes 0.5 thou/uL (0.11-0.59); %Basophils 0.6 % (0.0-1.0); %Eosinophils 0.9 % (0.0-10.0); %Lymphocytes 30.6 % (21.0-51.0); %Monocytes 3.4 % (0.0-10.0); %Neutrophils 64.5 % (42.0-75.0); Hemoglobin 15.6 g/dL (12.0-16.0); Mean Corpuscular HGB CONC 33.8 g/dL (32.0-36.0); Mean Corpuscular Hemoglobin 30.7 pg (27.0-31.0); Mean Corpuscular Volume 90.9 fL (78.0-98.0); Platelet Count 324 thou/uL (130-400); RBC Distribution Width 12.3 % (11.5-14.5); Red Blood Cell (RBC) Count 5.07 mill/uL (4.20-5.40)
[2018-07-07 00:35] LABS: ALT (SGPT) 10 U/L (8-55); AST (SGOT) 11 U/L (5-34); Albumin 3.5 g/dL (3.5-5.0); Alkaline Phosphatase 138 U/L (40-150); Anion Gap 15 mmol/L (10-20); BUN (Urea Nitrogen) 21 mg/dL (7.0-18.7); Bilirubin, Total 0.3 mg/dL (0.2-1.2); Calc. Creatinine Clearance 0 mL/min (70-130); Calcium 9.3 mg/dL (7.8-10.44); Carbon Dioxide 23 mmol/L (22-29); Chloride 100 mmol/L (98-107); Estimated GFR-MDRD 47; Glucose 378 mg/dL (70-105); Potassium 4.3 mmol/L (3.5-5.1); Protein, Total 6.5 g/dL (6.0-8.3); Sodium 134 mmol/L (136-145)
[2018-07-07] MEDS ORDERED: Acetaminophen 500 MG TAB ONE (01:10)
[2018-07-07] MEDS ORDERED: Insulin Regular 300 UNITS/3 ML VIAL ONE (01:53)
[2018-07-07] MEDS ORDERED: Methocarbamol 1 GM/10 ML VIAL SLOW IVP SCH (02:00)
== END 2018-07-07 03:20 | disposition home or self-care (01) ==
LOC: ERS 23:20
DX: E11.65 Type 2 diabetes mellitus with hyperglycemia (principal); I10 Essential (primary) hypertension; F17.210 Nicotine dependence, cigarettes, uncomplicated; Z79.84 Long term (current) use of oral hypoglycemic drugs; Z79.899 Other long term (current) drug therapy
CPT/HCPCS: 36415; 36416; 71045; 80053; 84484; 85025; 93005; 96361; 96374; J1815; J2800

== ENCOUNTER 2018-07-24 19:48 | Inpatient (IN) | payer MEDICAID, SELFPAY ==
[2018-07-24 21:08] LABS: #Basophils 0.1 thou/uL (0.0-0.2); #Eosinphils 0.1 thou/uL (0.0-0.7); #Lymphocytes 1.8 thou/uL (1.20-3.40); #Monocytes 0.7 thou/uL (0.11-0.59); #Neutrophils 9.7 thou/uL (1.40-6.50); %Basophils 0.4 % (0.0-1.0); %Eosinophils 0.6 % (0.0-10.0); %Lymphocytes 14.8 % (21.0-51.0); %Monocytes 5.3 % (0.0-10.0); %Neutrophils 78.9 % (42.0-75.0); Hemoglobin 14.5 g/dL (12.0-16.0); Mean Corpuscular Hemoglobin 29.8 pg (27.0-31.0); Mean Corpuscular Volume 96.1 fL (78.0-98.0); Mean Platelet Volume 8.8 fL (7.4-10.4); Platelet Count 172 thou/uL (130-400); RBC Distribution Width 12.3 % (11.5-14.5); Red Blood Cell (RBC) Count 4.86 mill/uL (4.20-5.40); White Blood Cell (WBC) Count 12.3 thou/uL (4.8-10.8)
--- NOTE | 2018-07-24 21:30 | CT ---
CT of the face: 07/24/2018 COMPARISON: None HISTORY: Possible for head abscess, swelling of the right I TECHNIQUE: Axial CT imaging at 2.5 mm intervals through the facial region with IV contrast. Coronal a nd sagittal reformatted imaging obtained. FINDINGS: Limited assessment of the imaged brain parenchyma appears unremarkable. There is extensive subcutaneous fat stranding consistent with edema within the soft tissues of the fo rehead anterior to bilateral frontal sinuses. There is soft tissue swelling and subcutaneous edema involving both upper eyelids, right greater than left, as well as the soft tissues about both orbits. There is no postseptal inflammatory change on either side. No evidence for drainable abscess is seen. The globes are symmetric in size, shape, and density. The frontal sinuses, sphenoid sinuses, ethmoid air cells, and visualized mastoid air cells are well a erated. There is mild mucosal thickening involving the alveolar recess of bilateral maxillary sinuses, right greater than left. Numerous dental caries and periapical abscesses are noted bilaterally. Numerous missing teeth are not ed. The temporomandibular joints and mandible demonstrate no acute findings. The retroantral fat in the parapharyngeal fat appears clear bilaterally. Mildly enlarged bilateral le ronald 1 and level 2 lymph nodes are noted, likely reactive in nature. IMPRESSION: Findings suggesting extensive facial cellulitis in the bilateral periorbital and supraorb ital regions as detailed above.
[2018-07-24 21:33] LABS: ALT (SGPT) 9 U/L (8-55); AST (SGOT) 6 U/L (5-34); Albumin 3.1 g/dL (3.5-5.0); Alkaline Phosphatase 157 U/L (40-150); Anion Gap 14 mmol/L (10-20); BUN (Urea Nitrogen) 13 mg/dL (7.0-18.7); Bilirubin, Total 0.3 mg/dL (0.2-1.2); Calc. Creatinine Clearance 0 mL/min (70-130); Calcium 8.7 mg/dL (7.8-10.44); Carbon Dioxide 22 mmol/L (22-29); Chloride 91 mmol/L (98-107); Estimated GFR-MDRD 33; Globulin 3.1 g/dL (2.4-3.5); Potassium 4.2 mmol/L (3.5-5.1); Protein, Total 6.2 g/dL (6.0-8.3); Sodium 123 mmol/L (136-145)
[2018-07-24 21:36] LABS: Glucose 889 mg/dL (70-105)
[2018-07-24] MEDS ORDERED: Morphine 4 MG/ML VIAL ONE (22:05)
[2018-07-24] MEDS ORDERED: Ondansetron PF 4 MG/2 ML Vial ONE (22:05)
[2018-07-24] MEDS ORDERED: MEROPENEM 1 GM/50 ML 1 GM in Premix Bag 1 BAG IVPB SCH (22:30)
[2018-07-24] MEDS ORDERED: HumaLOG 300 UNITS/3 ML VIAL SC PRN (22:53)
[2018-07-24] MEDS ORDERED: Dextrose 5% in Water 1,000 ML IV PRN (22:53)
[2018-07-24] MEDS ORDERED: Dextrose 50% Abboject 50 ML SYRINGE SLOW IVP PRN (22:53)
[2018-07-24] MEDS ORDERED: Ondansetron PF 4 MG/2 ML Vial IVP PRN (22:55)
[2018-07-24] MEDS ORDERED: Ondansetron ODT 4 MG TAB PO PRN (22:55)
[2018-07-24] MEDS ORDERED: hydrALAZINE 20 MG/ML VIAL SLOW IVP PRN (23:24)
[2018-07-24] MEDS ORDERED: Insulin Regular 300 UNITS/3 ML VIAL ONE (23:38)
--- NOTE | 2018-07-25 00:48 | HP ---
PRIMARY CARE DOCTOR: No PCP. CODE STATUS: Full code. TIME OF EVALUATION: 10:45 p.m. CHIEF COMPLAINT: Facial swelling. HISTORY OF PRESENT ILLNESS: This is a 37-year-old female patient with past medical history of diabetes type 2, came to the hospital after having facial swelling for the past 2 days. She reported that she has some skin lesions in the forehead, it became infected. The patient has then facial swelling that is severe spreading to both eyes and frontal area. The symptoms have been gradually getting worse associated with pain that is 10/10. No fever. REVIEW OF SYSTEMS: CONSTITUTIONAL: No fever, chills, or generalized weakness. RESPIRATORY: No cough, sputum production, or shortness of breath. CARDIOVASCULAR: No chest pain or palpitation. GASTROINTESTINAL: No nausea, vomiting, diarrhea, or abdominal pain. SUPERVISOR FACEPIECE LINE: No dizziness, headache, or feeling lightheaded. GENITOURINARY: No burning on urination. EXTREMITIES: No leg swelling. SKIN: With significant redness, swelling in the frontal area expanding to bilateral periorbital areas with redness, tenderness, swelling. PAST MEDICAL HISTORY: Diabetes type 2, hypertension, noncompliance, nephrotic syndrome. PAST SURGICAL HISTORY: x2, cholecystectomy in July 2014, tooth extraction in 2019. SOCIAL HISTORY: The patient has a history of methamphetamine abuse. Lives at home with family. Smokes cigarettes, 4 per day. FAMILY HISTORY: Reviewed, noncontributory to this case. KNOWN ALLERGIES: To Aleve and Rocephin. REPORTED MEDICATIONS: 1. Lisinopril. 2. Pantoprazole. 3. Metformin. 4. Glipizide. PHYSICAL EXAMINATION: VITAL SIGNS: On presentation, blood pressure 143/100 with heart rate 134, respiratory rate was 20, temperature 97.8, pain 10/10, oxygen saturation was 100% on room air. GENERAL APPEARANCE: The patient is alert, oriented, not in acute distress. HEENT: Eyes, normal conjunctivae. Moist oral mucosa. Anicteric. No JVD. The patient has bilateral swelling of the face, especially in the frontal area and spreading to the periorbital area. Vision is not affected. RESPIRATORY: Bilateral air entry. No rales. No wheezes. Symmetric expansion. CARDIOVASCULAR: Normal rate, regular rhythm. No murmurs. No gallop. No edema. ABDOMEN: Soft. Normal bowel sounds. MUSCULOSKELETAL: Baseline range of motion and strength. No tenderness. SKIN: Warm and intact. No pallor. No rash. No redness. Peripheral pulses are present. Capillary refill seems to be intact. NEUROLOGIC: No evidence of any new focal weakness. Baseline speech. Cranial nerves seems to be intact. PSYCH: The patient is in good mood. No anxiety. Optimal judgment. DIAGNOSTIC DATA: Facial CT findings suggesting extensive facial cellulitis of the bilateral periorbital and supraorbital regions. There is no evidence of involvement of the eye. LABORATORY DATA: Labs were reviewed. The patient has white count 12.3, hemoglobin 14.5, MCV 96.1, platelet count 172. Chemistry, sodium 123, potassium 4.2, chloride 91, carbon dioxide 22, anion gap 14, BUN 13, creatinine 1.74, GFR 33, glucose 189, lactic acid 4.3, calcium 9.7, total bilirubin 0.3. LFTs were normal. Alkaline phosphatase was 157, albumin 3.1, globulin 3.1, albumin-globulin ratio is 1.0. Beta hydroxybutyrate 0.08. ASSESSMENT AND PLAN: The patient will be placed in the hospital with following medical problems: 1. Sepsis. The patient has leukocytosis, tachycardia, the patient's source is facial cellulitis, the patient has been started on broad-spectrum antibiotics. No evidence of abscess on the CT. We will do blood cultures, follow results. We will adjust treatment as needed. 2. Uncontrolled diabetes with blood sugar 189, bicarb is normal. Osmolality is normal. There are no areas of any other diabetic complications. The patient receiving IV fluids. The patient receiving insulin. We will monitor, and treat accordingly. 3. Hypertonic hyponatremia secondary to hyperglycemia. We will correct uncontrolled diabetes. 4. Deep venous thrombosis prophylaxis. 5. Uncontrolled blood pressure. The patient has blood pressure of 168/117. The patient reportedly noncompliant and most likely a reason for the hypertension. We will reconcile her home medication that has been reported by herself. We will place the patient on some IV p.r.n. medication for blood pressure. Job ID: [id number]
[2018-07-25 01:02] LABS: Lactic Acid 2.7 mmol/L (0.5-2.2)
[2018-07-25] MEDS ORDERED: Acetaminophen 325 MG TAB ONE ×2 (03:24→08:02)
[2018-07-25] MEDS: Acetaminophen 325 MG TAB PO PRN ×2 (03:27→08:05)
[2018-07-25 03:39] LABS: #Basophils 0.1 thou/uL (0.0-0.2); #Eosinphils 0.2 thou/uL (0.0-0.7); #Lymphocytes 2.9 thou/uL (1.20-3.40); #Neutrophils 9.6 thou/uL (1.40-6.50); %Basophils 0.8 % (0.0-1.0); %Eosinophils 1.1 % (0.0-10.0); %Lymphocytes 20.8 % (21.0-51.0); %Monocytes 7.2 % (0.0-10.0); %Neutrophils 70.1 % (42.0-75.0); Hemoglobin 13.9 g/dL (12.0-16.0); Mean Corpuscular HGB CONC 33.5 g/dL (32.0-36.0); Mean Corpuscular Hemoglobin 30.4 pg (27.0-31.0); Mean Corpuscular Volume 90.5 fL (78.0-98.0); Platelet Count 203 thou/uL (130-400); RBC Distribution Width 12.2 % (11.5-14.5); Red Blood Cell (RBC) Count 4.57 mill/uL (4.20-5.40); White Blood Cell (WBC) Count 13.7 thou/uL (4.8-10.8)
[2018-07-25 03:53] LABS: Anion Gap 12 mmol/L (10-20); BUN (Urea Nitrogen) 10 mg/dL (7.0-18.7); Calc. Creatinine Clearance 0 mL/min (70-130); Calcium 8.7 mg/dL (7.8-10.44); Carbon Dioxide 24 mmol/L (22-29); Chloride 99 mmol/L (98-107); Estimated GFR-MDRD 66; Glucose 246 mg/dL (70-105); Potassium 3.6 mmol/L (3.5-5.1); Sodium 131 mmol/L (136-145)
[2018-07-25] MEDS ORDERED: Senokot S 8.6-50 MG TAB PO PRN (07:45)
[2018-07-25] MEDS ORDERED: Artificial Tears 18 DROP/0.9 ML EA EYE PRN (07:45)
[2018-07-25] MEDS ORDERED: Loratadine 10 MG TAB PO PRN (07:45)
[2018-07-25] MEDS ORDERED: Cepastat Lozenges 1 LOZ PO PRN (07:45)
[2018-07-25] MEDS ORDERED: Diabetic Tussin 200 MG/10 ML UDCUP PO PRN (07:45)
[2018-07-25] MEDS ORDERED: Loperamide HCl 2 MG CAP PO PRN (07:45)
[2018-07-25] MEDS ORDERED: Bisacodyl 5 MG TAB PO PRN (07:45)
[2018-07-25] MEDS ORDERED: Sodium Chloride 0.65% Nasal 44 ML BOT EA NARE PRN (07:45)
[2018-07-25] MEDS ORDERED: Zolpidem Tartrate 5 MG TAB PO PRN (07:45)
[2018-07-25] MEDS ORDERED: Eucerin (Mineral Oil/Petrolatum,White) 30 gm Jar TOP PRN (07:45)
[2018-07-25] MEDS ORDERED: Dextrose 50% Abboject 50 ML SYRINGE SLOW IVP PRN (08:21)
[2018-07-25] MEDS ORDERED: Dextrose 5% in Water 1,000 ML IV PRN (08:21)
--- NOTE | 2018-07-25 10:34 | PDOC.PN ---
- Subjective Encounter Start Date: 07/25/18 Encounter Start Time: 10:15 -: old records requested/rev Patient seen and examined. No new complaints. No overnight events - Objective Resuscitation Status - Order Detail: 07/24/18 22:55 Resuscitation Status Routine Resuscitation Status: FULL: Full Resuscitation MAR Reviewed: Yes Result Diagrams: 07/25/18 03:25 07/25/18 03:25 Additional Labs: Accuchecks 07/25/18 07/25/18 07:30 00:16 POC Glucose 297 H 423 H Radiology Reviewed by me: Yes (CT face noted) EKG Reviewed by me: Yes (nsr) Phys Exam - Physical Examination Constitutional: NAD HEENT: moist MMs, sclera anicteric bilateral periorbital edema Neck: no JVD, supple Respiratory: no wheezing, no rales, no rhonchi Cardiovascular: RRR, no significant murmur, no rub Gastrointestinal: soft, non-tender, no distention, positive bowel sounds Musculoskeletal: no edema, pulses present Neurological: non-focal, normal sensation, moves all 4 limbs Lymphatic: no nodes Psychiatric: normal affect, A&O x 3 Skin: no rash, normal turgor Dx/Plan (1) Acute kidney failure Status: Acute (2) Diabetic hyperosmolar non-ketotic state Code(s): E11.00 - TYPE 2 DIAB W HYPROSM W/O NONKET HYPRGLY-HYPROS COMA ([facility]) Status: Acute (3) Facial cellulitis Code(s): L03.211 - CELLULITIS OF FACE Status: Acute (4) Hyperglycemia due to type 2 diabetes mellitus Code(s): E11.65 - TYPE 2 DIABETES MELLITUS WITH HYPERGLYCEMIA Status: Acute (5) Hyponatremia Code(s): E87.1 - HYPO-OSMOLALITY AND HYPONATREMIA Status: Acute (6) Lactic acidosis Code(s): E87.2 - ACIDOSIS Status: Acute (7) DM type 2 (diabetes mellitus, type 2) Status: Chronic Qualifiers: (8) GERD (gastroesophageal reflux disease) Code(s): K21.9 - GASTRO-ESOPHAGEAL REFLUX DISEASE WITHOUT ESOPHAGITIS Status: Chronic (9) Hypertension Code(s): I10 - ESSENTIAL (PRIMARY) HYPERTENSION Status: Chronic - Plan cont current plan of care, plan discussed w/ family, continue antibiotics * continue IVF * contineu meropenam and vancomycin * admit to medical floor * medication reviewed as below * symptomatic treatment * discussed with * start lantus 10 unit sc bid * accucheck q 4 hourly and moderate scale sliding scale. Review of Systems - Review of Systems ENT: negative: Ear Pain, Ear Discharge, Nose Pain, Nose Discharge, Nose Congestion, Mouth Pain, Mouth Swelling, Throat Pain, Throat Swelling, Other Respiratory: negative: Cough, Dry, Shortness of Breath, Hemoptysis, SOB with Excertion, Pleuritic Pain, Sputum, Wheezing Cardiovascular: negative: chest pain, palpitations, orthopnea, paroxysmal nocturnal dyspnea, edema, light headedness, other Gastrointestinal: negative: Nausea, Vomiting, Abdominal Pain, Diarrhea, Constipation, Melena, Hematochezia, Other Genitourinary: negative: Dysuria, Frequency, Incontinence, Hematuria, Retention , Other Musculoskeletal: negative: Neck Pain, Shoulder Pain, Arm Pain, Back Pain, Hand Pain, Leg Pain, Foot Pain, Other - Medications/Allergies Allergies/Adverse Reactions: Allergies Allergy/AdvReac Type Severity Reaction Status Date / Time ceftriaxone sodium Allergy Verified 03/29/17 04:09 [From Rocephin] naproxen sodium [From Aleve] Allergy Verified 03/29/17 04:09 Medications: Current Medications Acetaminophen (Tylenol) 650 mg PO Q4H PRN PRN Reason: Headache/Fever/Mild Pain (1-3) Last Admin: 07/25/18 08:05 Dose: 650 mg Hydrocodone Bitart/Acetaminophen ([place] 5/325) 1 tab PO Q4H PRN PRN Reason: Moderate Pain (4-6) Amlodipine Besylate (Norvasc) 10 mg PO DAILY GALI Artificial Tears (Tears Naturale) 2 drop EA EYE PRN PRN PRN Reason: Dry Eyes Bisacodyl (Dulcolax) 10 mg PO DAILYPRN PRN PRN Reason: Constipation Dextrose/Water (Dextrose 50%) 25 gm SLOW IVP PRN PRN PRN Reason: Hypoglycemia Enoxaparin Sodium (Lovenox) 40 mg SC 0900 [facility] Glucagon (Glucagon) 1 mg IM PRN PRN PRN Reason: Hypoglycemia Guaifenesin (Robitussin Sf) 200 mg PO Q4H PRN PRN Reason: Cough Hydralazine HCl (Apresoline) 10 mg SLOW IVP Q4H PRN PRN Reason: BP>170/100 Vancomycin HCl 1 gm/ Device 200 mls @ 200 mls/hr IVPB 2200 G[facility] Insulin Glargine 10 units/ (Miscellaneous Medication) 0.1 mls @ 0 mls/hr SC HS G[facility] Insulin Glargine 10 units/ (Miscellaneous Medication) 0.1 mls @ 0 mls/hr SC QAM [facility] Dextrose/Water (D5w) 1,000 mls @ 0 mls/hr IV .Q0M PRN PRN Reason: Hypoglycemia Insulin Human Lispro (Humalog) 0 units SC .MODERATE SLIDING SC PRN PRN Reason: Moderate Correctional Scale Insulin Human Lispro (Humalog) 0 units SC .BEDTIME SLIDING SC PRN PRN Reason: Bedtime Correctional Scale Lisinopril (Zestril) 10 mg PO BID GALI Loperamide HCl (Imodium) 2 mg PO PRN PRN PRN Reason: Diarrhea/Loose Stools Loratadine (Claritin) 10 mg PO DAILYPRN PRN PRN Reason: Sinus Symptoms Mineral Oil/White Petrolatum (Eucerin Cream) 0 gm TOP BIDPRN PRN PRN Reason: Dry Skin Miscellaneous Medication (Pharmacy To Dose) 1 each IVPB PRN PRN PRN Reason: SSSI Ondansetron HCl (Zofran Odt) 4 mg PO Q6H PRN PRN Reason: Nausea/Vomiting Ondansetron HCl (Zofran) 4 mg IVP Q6H PRN PRN Reason: Nausea/Vomiting Pantoprazole Sodium (Protonix) 40 mg PO DAILY GALI Senna/Docusate Sodium (Senokot S) 2 tab PO BID PRN PRN Reason: Constipation Sodium Chloride ([place] Nasal [place] 0.65%) 0 ml EA NARE QIDPRN PRN PRN Reason: Nasal Congestion Sodium Chloride (Flush - Normal Saline) 10 ml IVF Q12HR GALI Sodium Chloride (Flush - Normal Saline) 10 ml IVF PRN PRN PRN Reason: Saline Flush Throat Lozenges (Cepastat Lozenges) 1 del PO Q2H PRN PRN Reason: Sore Throat Zolpidem Tartrate (Ambien) 5 mg PO HSPRN PRN PRN Reason: Insomnia
[2018-07-25] MEDS: Lisinopril 10 MG TAB PO SCH ×2 (11:12→21:06)
[2018-07-25] MEDS: Amlodipine 10 MG TAB PO SCH (11:12)
[2018-07-25] MEDS: HYDROcodone/Acetaminophen 5/325 mg Tablet PO PRN ×3 (11:15→19:05)
[2018-07-25] MEDS: Enoxaparin Sodium 40 MG/0.4 ML SYRINGE SC SCH (11:34)
[2018-07-25 11:47] VITALS: BMI 25.8
[2018-07-25] MEDS: Insulin Glargine 10 UNITS in Pre-Filled Syringe 1 EACH SC SCH ×2 (11:50→20:54)
[2018-07-25] MEDS: HumaLOG 300 UNITS/3 ML VIAL SC PRN ×2 (12:18→20:55)
[2018-07-25] MEDS: Vancomycin HCl 1 GM in Premix Bag 1 BAG IVPB SCH (21:45)
[2018-07-25] MEDS ORDERED: Morphine 2 MG/ML SYRINGE SLOW IVP SCH (21:45)
[2018-07-26] MEDS: HYDROcodone/Acetaminophen 5/325 mg Tablet PO PRN ×5 (00:49→21:08)
[2018-07-26] MEDS: HumaLOG 300 UNITS/3 ML VIAL SC PRN ×4 (00:49→21:07)
[2018-07-26 07:05] LABS: #Basophils 0.1 thou/uL (0.0-0.2); #Eosinphils 0.1 thou/uL (0.0-0.7); #Monocytes 0.7 thou/uL (0.11-0.59); #Neutrophils 11.4 thou/uL (1.40-6.50); %Basophils 0.4 % (0.0-1.0); %Lymphocytes 13.9 % (21.0-51.0); %Neutrophils 79.8 % (42.0-75.0); Hemoglobin 15.6 g/dL (12.0-16.0); Mean Corpuscular HGB CONC 32.1 g/dL (32.0-36.0); Mean Corpuscular Hemoglobin 30.4 pg (27.0-31.0); Mean Corpuscular Volume 94.8 fL (78.0-98.0); Mean Platelet Volume 8.4 fL (7.4-10.4); Platelet Count 206 thou/uL (130-400); RBC Distribution Width 12.5 % (11.5-14.5); Red Blood Cell (RBC) Count 5.14 mill/uL (4.20-5.40); White Blood Cell (WBC) Count 14.2 thou/uL (4.8-10.8)
[2018-07-26 07:28] LABS: Lactic Acid 1.4 mmol/L (0.5-2.2)
[2018-07-26 07:33] LABS: Anion Gap 13 mmol/L (10-20); BUN (Urea Nitrogen) 12 mg/dL (7.0-18.7); Calc. Creatinine Clearance 85 mL/min (70-130); Calcium 9.4 mg/dL (7.8-10.44); Carbon Dioxide 22 mmol/L (22-29); Chloride 100 mmol/L (98-107); Estimated GFR-MDRD 60; Glucose 220 mg/dL (70-105); Potassium 4.2 mmol/L (3.5-5.1); Sodium 131 mmol/L (136-145)
[2018-07-26] MEDS: Enoxaparin Sodium 40 MG/0.4 ML SYRINGE SC SCH (07:50)
[2018-07-26] MEDS: Amlodipine 10 MG TAB PO SCH ×2 (07:50→07:54)
[2018-07-26] MEDS: Lisinopril 10 MG TAB PO SCH ×2 (07:54→21:06)
[2018-07-26] MEDS: Insulin Glargine 10 UNITS in Pre-Filled Syringe 1 EACH SC SCH ×2 (09:38→21:06)
--- NOTE | 2018-07-26 10:37 | PDOC.PN ---
- Subjective Encounter Start Date: 07/26/18 Encounter Start Time: 09:30 she has abscess over nasal bridge and has lot of pain there, no fever - Objective Resuscitation Status - Order Detail: 07/24/18 22:55 Resuscitation Status Routine Resuscitation Status: FULL: Full Resuscitation MAR Reviewed: Yes Vital Signs & Weight: Vital Signs (12 hours) Temp Pulse Resp BP BP Pulse Ox 07/26/18 07:54 112 H 122/85 07/26/18 07:45 98.6 F 112 H 16 122/85 99 07/26/18 05:29 98.9 F 105 H 16 105/74 95 07/26/18 00:00 98.9 F 108 H 16 106/74 94 L Weight Weight 159 lb 15.831 oz I&O: 07/25/18 07/26/18 07/27/18 06:59 06:59 06:59 Intake Total 620 Balance 620 Result Diagrams: 07/26/18 06:50 07/26/18 06:50 Additional Labs: Accuchecks 07/26/18 07/26/18 07/25/18 04:12 00:39 20:54 POC Glucose 176 H 338 H 322 H 07/25/18 07/25/18 07/24/18 16:01 12:05 23:39 POC Glucose 195 H 307 H Greater than 550 H* Phys Exam - Physical Examination Constitutional: NAD periorbital cellulitis, abscess noted at nasal bridge Neck: no nodes, no JVD, supple Respiratory: no wheezing, no rales, no rhonchi Cardiovascular: RRR, no significant murmur, no rub Gastrointestinal: soft, non-tender, no distention, positive bowel sounds Musculoskeletal: no edema, pulses present Neurological: non-focal, normal sensation, moves all 4 limbs Lymphatic: no nodes Psychiatric: normal affect, A&O x 3 Skin: no rash, normal turgor Dx/Plan (1) Acute kidney failure Status: Acute (2) Diabetic hyperosmolar non-ketotic state Code(s): E11.00 - TYPE 2 DIAB W HYPROSM W/O NONKET HYPRGLY-HYPROS COMA ([facility]) Status: Acute (3) Facial cellulitis Code(s): L03.211 - CELLULITIS OF FACE Status: Acute Comment: with abcess (4) Hyperglycemia due to type 2 diabetes mellitus Code(s): E11.65 - TYPE 2 DIABETES MELLITUS WITH HYPERGLYCEMIA Status: Acute (5) Hyponatremia Code(s): E87.1 - HYPO-OSMOLALITY AND HYPONATREMIA Status: Acute (6) Lactic acidosis Code(s): E87.2 - ACIDOSIS Status: Acute (7) DM type 2 (diabetes mellitus, type 2) Status: Chronic Qualifiers: (8) GERD (gastroesophageal reflux disease) Code(s): K21.9 - GASTRO-ESOPHAGEAL REFLUX DISEASE WITHOUT ESOPHAGITIS Status: Chronic (9) Hypertension Code(s): I10 - ESSENTIAL (PRIMARY) HYPERTENSION Status: Chronic - Plan cont current plan of care, continue antibiotics * continue meropenam and vancomycin * consult ENT for possible need of I & D * medication reviewed as below * symptomatic treatment * blood sugar improving * pain control. Review of Systems - Review of Systems Constitutional: negative: fever, chills, sweats, weakness, malaise, other Respiratory: negative: Cough, Dry, Shortness of Breath, Hemoptysis, SOB with Excertion, Pleuritic Pain, Sputum, Wheezing Cardiovascular: negative: chest pain, palpitations, orthopnea, paroxysmal nocturnal dyspnea, edema, light headedness, other Gastrointestinal: negative: Nausea, Vomiting, Abdominal Pain, Diarrhea, Constipation, Melena, Hematochezia, Other Genitourinary: negative: Dysuria, Frequency, Incontinence, Hematuria, Retention , Other Musculoskeletal: negative: Neck Pain, Shoulder Pain, Arm Pain, Back Pain, Hand Pain, Leg Pain, Foot Pain, Other Skin: negative: Rash, Lesions, Randal, Bruising, Other - Medications/Allergies Allergies/Adverse Reactions: Allergies Allergy/AdvReac Type Severity Reaction Status Date / Time ceftriaxone sodium Allergy Verified 07/25/18 11:57 [From Rocephin] naproxen sodium [From Aleve] Allergy Verified 07/25/18 11:57 Medications: Current Medications Acetaminophen (Tylenol) 650 mg PO Q4H PRN PRN Reason: Headache/Fever/Mild Pain (1-3) Last Admin: 07/25/18 08:05 Dose: 650 mg Hydrocodone Bitart/Acetaminophen ([place] 5/325) 1 tab PO Q4H PRN PRN Reason: Moderate Pain (4-6) Last Admin: 07/26/18 06:42 Dose: 1 tab Amlodipine Besylate (Norvasc) 10 mg PO DAILY GALI Last Admin: 07/26/18 07:54 Dose: 10 mg Artificial Tears (Tears Naturale) 2 drop EA EYE PRN PRN PRN Reason: Dry Eyes Bisacodyl (Dulcolax) 10 mg PO DAILYPRN PRN PRN Reason: Constipation Dextrose/Water (Dextrose 50%) 25 gm SLOW IVP PRN PRN PRN Reason: Hypoglycemia Enoxaparin Sodium (Lovenox) 40 mg SC 0900 [facility] Last Admin: 07/26/18 07:50 Dose: Not Given Glucagon (Glucagon) 1 mg IM PRN PRN PRN Reason: Hypoglycemia Guaifenesin (Robitussin Sf) 200 mg PO Q4H PRN PRN Reason: Cough Hydralazine HCl (Apresoline) 10 mg SLOW IVP Q4H PRN PRN Reason: BP>170/100 Vancomycin HCl 1 gm/ Device 200 mls @ 200 mls/hr IVPB 2200 [facility] Last Admin: 07/25/18 21:45 Dose: 200 mls Insulin Glargine 10 units/ (Miscellaneous Medication) 0.1 mls @ 0 mls/hr SC HS [facility] Last Admin: 07/25/18 20:54 Dose: 0.1 mls Insulin Glargine 10 units/ (Miscellaneous Medication) 0.1 mls @ 0 mls/hr SC QAM [facility] Last Admin: 07/26/18 09:38 Dose: 0.1 mls Dextrose/Water (D5w) 1,000 mls @ 0 mls/hr IV .Q0M PRN PRN Reason: Hypoglycemia Insulin Human Lispro (Humalog) 0 units SC .MODERATE SLIDING SC PRN PRN Reason: Moderate Correctional Scale Last Admin: 07/25/18 12:18 Dose: 8 unit Insulin Human Lispro (Humalog) 0 units SC .BEDTIME SLIDING SC PRN PRN Reason: Bedtime Correctional Scale Last Admin: 07/26/18 00:49 Dose: 4 unit Lisinopril (Zestril) 10 mg PO BID [facility] Last Admin: 07/26/18 07:54 Dose: 10 mg Loperamide HCl (Imodium) 2 mg PO PRN PRN PRN Reason: Diarrhea/Loose Stools Loratadine (Claritin) 10 mg PO DAILYPRN PRN PRN Reason: Sinus Symptoms Mineral Oil/White Petrolatum (Eucerin Cream) 0 gm TOP BIDPRN PRN PRN Reason: Dry Skin Miscellaneous Medication (Pharmacy To Dose) 1 each IVPB PRN PRN PRN Reason: SSSI Ondansetron HCl (Zofran Odt) 4 mg PO Q6H PRN PRN Reason: Nausea/Vomiting Ondansetron HCl (Zofran) 4 mg IVP Q6H PRN PRN Reason: Nausea/Vomiting Pantoprazole Sodium (Protonix) 40 mg PO DAILY [facility] Last Admin: 07/26/18 07:49 Dose: 40 mg Senna/Docusate Sodium (Senokot S) 2 tab PO BID PRN PRN Reason: Constipation Sodium Chloride ([place] Nasal [place] 0.65%) 0 ml EA NARE QIDPRN PRN PRN Reason: Nasal Congestion Sodium Chloride (Flush - Normal Saline) 10 ml IVF Q12HR [facility] Last Admin: 07/26/18 07:55 Dose: 10 ml Sodium Chloride (Flush - Normal Saline) 10 ml IVF PRN PRN PRN Reason: Saline Flush Throat Lozenges (Cepastat Lozenges) 1 del PO Q2H PRN PRN Reason: Sore Throat Zolpidem Tartrate (Ambien) 5 mg PO HSPRN PRN PRN Reason: Insomnia
[2018-07-26] MEDS: Vancomycin HCl 1 GM in Premix Bag 1 BAG IVPB SCH (21:06)
--- NOTE | 2018-07-26 23:08 | CON ---
DATE OF CONSULTATION: SUBJECTIVE: The patient admitted for abscess and cellulitis above nasal bridge. ENT consulted for I and D of the abscess site. Currently, on IV antibiotics. OBJECTIVE: GENERAL: The patient is well developed, well nourished. She is in no acute distress. VITAL SIGNS: Stable. HEENT: Abscess is obvious just superior to nasal bone in the frontal region of her head. Fluctuance extends approximately 1 to 1.5 inches above primary abscess site. No other complaints at this time. ASSESSMENT: 1. Abscess in the nasal region. 2. Cellulitis in the nasal region. PLAN: 1. I and D of the abscess site. 2. Continue IV antibiotics per Medicine. 3. Dr. Lopez to round on tomorrow to see if further intervention is warranted. PROCEDURE NOTE: The area of the abscess was cleansed using Betadine swabs. Approximately, 4 to 5 mL of lidocaine with epi was injected into the side in the regional block manner. #11-blade was used to incise an approximate 1-inch incision. Area was then expressed resulting in approximately 5 mL of purulent fluid consistent with infection. The area was then packed with iodoform gauze and covered with dressing. The patient tolerated the procedure well. Job ID: [id number]
[2018-07-27] MEDS: HYDROcodone/Acetaminophen 5/325 mg Tablet PO PRN ×3 (01:34→20:23)
[2018-07-27] MEDS: HumaLOG 300 UNITS/3 ML VIAL SC PRN ×4 (06:00→20:27)
[2018-07-27] MEDS: Enoxaparin Sodium 40 MG/0.4 ML SYRINGE SC SCH (07:55)
[2018-07-27] MEDS: Amlodipine 10 MG TAB PO SCH (07:55)
[2018-07-27] MEDS: Lisinopril 10 MG TAB PO SCH ×2 (07:56→20:22)
[2018-07-27] MEDS: Insulin Glargine 10 UNITS in Pre-Filled Syringe 1 EACH SC SCH (07:56)
--- NOTE | 2018-07-27 10:04 | PDOC.PN ---
- Subjective Encounter Start Date: 07/27/18 Encounter Start Time: 07:50 Patient seen and examined. her pain not controlled, No overnight events - Objective Resuscitation Status - Order Detail: 07/24/18 22:55 Resuscitation Status Routine Resuscitation Status: FULL: Full Resuscitation MAR Reviewed: Yes Vital Signs & Weight: Vital Signs (12 hours) Temp Pulse Resp BP BP Pulse Ox 07/27/18 07:55 113 H 106/69 97 07/27/18 07:53 106 H 16 97 07/27/18 07:37 99.1 F 113 H 20 104/69 96 07/27/18 04:32 98.5 F 113 H 16 126/83 96 07/27/18 00:53 98.9 F 113 H 16 119/85 96 Weight Weight 159 lb 15.831 oz I&O: 07/26/18 07/27/18 07/28/18 06:59 06:59 06:59 Intake Total 620 1370 Balance 620 1370 Result Diagrams: 07/26/18 06:50 07/26/18 06:50 Additional Labs: Accuchecks 07/27/18 07/27/18 07/27/18 07:59 04:28 00:43 POC Glucose 200 H 290 H 253 H 07/26/18 07/26/18 07/26/18 21:07 19:32 16:03 POC Glucose 316 H 319 H 157 H 07/26/18 10:40 POC Glucose 357 H Phys Exam - Physical Examination Constitutional: NAD HEENT: PERRLA, moist MMs, sclera anicteric periorbital swelling Neck: no JVD, supple Respiratory: no wheezing, no rales, no rhonchi Cardiovascular: RRR, no significant murmur, no rub Gastrointestinal: soft, non-tender, no distention, positive bowel sounds Musculoskeletal: no edema, pulses present Neurological: non-focal, normal sensation, moves all 4 limbs Lymphatic: no nodes Psychiatric: normal affect, A&O x 3 Skin: no rash, normal turgor Dx/Plan (1) Acute kidney failure Status: Acute (2) Diabetic hyperosmolar non-ketotic state Code(s): E11.00 - TYPE 2 DIAB W HYPROSM W/O NONKET HYPRGLY-HYPROS COMA ([facility]) Status: Acute (3) Facial cellulitis Code(s): L03.211 - CELLULITIS OF FACE Status: Acute Comment: with abcess (4) Hyperglycemia due to type 2 diabetes mellitus Code(s): E11.65 - TYPE 2 DIABETES MELLITUS WITH HYPERGLYCEMIA Status: Acute (5) Hyponatremia Code(s): E87.1 - HYPO-OSMOLALITY AND HYPONATREMIA Status: Acute (6) Lactic acidosis Code(s): E87.2 - ACIDOSIS Status: Acute (7) DM type 2 (diabetes mellitus, type 2) Status: Chronic Qualifiers: (8) GERD (gastroesophageal reflux disease) Code(s): K21.9 - GASTRO-ESOPHAGEAL REFLUX DISEASE WITHOUT ESOPHAGITIS Status: Chronic (9) Hypertension Code(s): I10 - ESSENTIAL (PRIMARY) HYPERTENSION Status: Chronic - Plan cont current plan of care, continue antibiotics * continue current medical treatment * symptomatic treatment * continue antibiotics * add morphin for pain control * ENT following. Review of Systems - Review of Systems ENT: negative: Ear Pain, Ear Discharge, Nose Pain, Nose Discharge, Nose Congestion, Mouth Pain, Mouth Swelling, Throat Pain, Throat Swelling, Other Respiratory: negative: Cough, Dry, Shortness of Breath, Hemoptysis, SOB with Excertion, Pleuritic Pain, Sputum, Wheezing Cardiovascular: negative: chest pain, palpitations, orthopnea, paroxysmal nocturnal dyspnea, edema, light headedness, other Gastrointestinal: negative: Nausea, Vomiting, Abdominal Pain, Diarrhea, Constipation, Melena, Hematochezia, Other Genitourinary: negative: Dysuria, Frequency, Incontinence, Hematuria, Retention , Other Musculoskeletal: negative: Neck Pain, Shoulder Pain, Arm Pain, Back Pain, Hand Pain, Leg Pain, Foot Pain, Other - Medications/Allergies Allergies/Adverse Reactions: Allergies Allergy/AdvReac Type Severity Reaction Status Date / Time ceftriaxone sodium Allergy Verified 07/25/18 11:57 [From Rocephin] naproxen sodium [From Aleve] Allergy Verified 07/25/18 11:57 Medications: Current Medications Acetaminophen (Tylenol) 650 mg PO Q4H PRN PRN Reason: Headache/Fever/Mild Pain (1-3) Last Admin: 07/25/18 08:05 Dose: 650 mg Hydrocodone Bitart/Acetaminophen ([place] 5/325) 1 tab PO Q4H PRN PRN Reason: Moderate Pain (4-6) Last Admin: 07/27/18 06:01 Dose: 1 tab Amlodipine Besylate (Norvasc) 10 mg PO DAILY [facility] Last Admin: 07/27/18 07:55 Dose: Not Given Artificial Tears (Tears Naturale) 2 drop EA EYE PRN PRN PRN Reason: Dry Eyes Bisacodyl (Dulcolax) 10 mg PO DAILYPRN PRN PRN Reason: Constipation Dextrose/Water (Dextrose 50%) 25 gm SLOW IVP PRN PRN PRN Reason: Hypoglycemia Enoxaparin Sodium (Lovenox) 40 mg SC 0900 [facility] Last Admin: 07/27/18 07:55 Dose: 40 mg Glucagon (Glucagon) 1 mg IM PRN PRN PRN Reason: Hypoglycemia Guaifenesin (Robitussin Sf) 200 mg PO Q4H PRN PRN Reason: Cough Hydralazine HCl (Apresoline) 10 mg SLOW IVP Q4H PRN PRN Reason: BP>170/100 Vancomycin HCl 1 gm/ Device 200 mls @ 200 mls/hr IVPB 2200 [facility] Last Admin: 07/26/18 21:06 Dose: 200 mls Insulin Glargine 10 units/ (Miscellaneous Medication) 0.1 mls @ 0 mls/hr SC HS [facility] Last Admin: 07/26/18 21:06 Dose: 0.1 mls Insulin Glargine 10 units/ (Miscellaneous Medication) 0.1 mls @ 0 mls/hr SC QAM [facility] Last Admin: 07/27/18 07:56 Dose: 0.1 mls Dextrose/Water (D5w) 1,000 mls @ 0 mls/hr IV .Q0M PRN PRN Reason: Hypoglycemia Insulin Human Lispro (Humalog) 0 units SC .MODERATE SLIDING SC PRN PRN Reason: Moderate Correctional Scale Last Admin: 07/27/18 06:00 Dose: 6 unit Insulin Human Lispro (Humalog) 0 units SC .BEDTIME SLIDING SC PRN PRN Reason: Bedtime Correctional Scale Last Admin: 07/26/18 21:07 Dose: 4 unit Lisinopril (Zestril) 10 mg PO BID [facility] Last Admin: 07/27/18 07:56 Dose: Not Given Loperamide HCl (Imodium) 2 mg PO PRN PRN PRN Reason: Diarrhea/Loose Stools Loratadine (Claritin) 10 mg PO DAILYPRN PRN PRN Reason: Sinus Symptoms Mineral Oil/White Petrolatum (Eucerin Cream) 0 gm TOP BIDPRN PRN PRN Reason: Dry Skin Miscellaneous Medication (Pharmacy To Dose) 1 each IVPB PRN PRN PRN Reason: SSSI Ondansetron HCl (Zofran Odt) 4 mg PO Q6H PRN PRN Reason: Nausea/Vomiting Ondansetron HCl (Zofran) 4 mg IVP Q6H PRN PRN Reason: Nausea/Vomiting Pantoprazole Sodium (Protonix) 40 mg PO DAILY [facility] Last Admin: 07/27/18 07:54 Dose: 40 mg Senna/Docusate Sodium (Senokot S) 2 tab PO BID PRN PRN Reason: Constipation Sodium Chloride ([place] Nasal [place] 0.65%) 0 ml EA NARE QIDPRN PRN PRN Reason: Nasal Congestion Sodium Chloride (Flush - Normal Saline) 10 ml IVF Q12HR [facility] Last Admin: 07/27/18 07:56 Dose: 10 ml Sodium Chloride (Flush - Normal Saline) 10 ml IVF PRN PRN PRN Reason: Saline Flush Throat Lozenges (Cepastat Lozenges) 1 del PO Q2H PRN PRN Reason: Sore Throat Zolpidem Tartrate (Ambien) 5 mg PO HSPRN PRN PRN Reason: Insomnia
[2018-07-27] MEDS: Morphine 4 MG/ML VIAL SLOW IVP PRN ×3 (10:37→21:54)
[2018-07-27] MEDS: Insulin Glargine 15 UNITS in Pre-Filled Syringe 1 EACH SC SCH (20:22)
[2018-07-27 21:22] LABS: Vancomycin, Trough 7.2 ug/mL
[2018-07-27] MEDS: Vancomycin HCl 1 GM in Premix Bag 1 BAG IVPB SCH (21:53)
[2018-07-28] MEDS: HYDROcodone/Acetaminophen 5/325 mg Tablet PO PRN ×4 (03:20→21:30)
[2018-07-28] MEDS: Morphine 4 MG/ML VIAL SLOW IVP PRN ×3 (06:05→18:27)
[2018-07-28] MEDS: Amlodipine 10 MG TAB PO SCH (08:23)
[2018-07-28] MEDS: Lisinopril 10 MG TAB PO SCH ×2 (08:23→21:28)
[2018-07-28] MEDS: Enoxaparin Sodium 40 MG/0.4 ML SYRINGE SC SCH (08:25)
[2018-07-28 08:34] LABS: Anion Gap 11 mmol/L (10-20); BUN (Urea Nitrogen) 12 mg/dL (7.0-18.7); Calc. Creatinine Clearance 76 mL/min (70-130); Calcium 9.4 mg/dL (7.8-10.44); Carbon Dioxide 26 mmol/L (22-29); Chloride 102 mmol/L (98-107); Estimated GFR-MDRD 53; Glucose 168 mg/dL (70-105); Potassium 4.2 mmol/L (3.5-5.1); Sodium 135 mmol/L (136-145)
[2018-07-28 08:59] LABS: #Basophils 0.1 thou/uL (0.0-0.2); #Eosinphils 0.3 thou/uL (0.0-0.7); #Lymphocytes 3.3 thou/uL (1.20-3.40); #Monocytes 0.6 thou/uL (0.11-0.59); #Neutrophils 9.7 thou/uL (1.40-6.50); %Basophils 0.8 % (0.0-1.0); %Eosinophils 2.2 % (0.0-10.0); %Lymphocytes 23.3 % (21.0-51.0); %Monocytes 4.6 % (0.0-10.0); %Neutrophils 69.2 % (42.0-75.0); Hemoglobin 13.1 g/dL (12.0-16.0); Mean Corpuscular HGB CONC 29.8 g/dL (32.0-36.0); Mean Corpuscular Hemoglobin 28.7 pg (27.0-31.0); Mean Corpuscular Volume 96.4 fL (78.0-98.0); Mean Platelet Volume 8.6 fL (7.4-10.4); Platelet Count 221 thou/uL (130-400); RBC Distribution Width 12.3 % (11.5-14.5); RBC Morphology Normal; Red Blood Cell (RBC) Count 4.57 mill/uL (4.20-5.40)
[2018-07-28] MEDS ORDERED: Insulin Glargine 5 UNITS in Pre-Filled Syringe 1 EACH SC SCH (09:00)
[2018-07-28 09:02] LABS: MDiff Complete? YES
[2018-07-28] MEDS: Vancomycin HCl 1 GM in Premix Bag 1 BAG IVPB SCH ×2 (09:49→21:27)
--- NOTE | 2018-07-28 09:56 | PDOC.PN ---
- Subjective Encounter Start Date: 07/28/18 Encounter Start Time: 09:10 Patient seen and examined. No new complaints. No overnight events - Objective Resuscitation Status - Order Detail: 07/24/18 22:55 Resuscitation Status Routine Resuscitation Status: FULL: Full Resuscitation MAR Reviewed: Yes Vital Signs & Weight: Vital Signs (12 hours) Temp Pulse Resp BP BP Pulse Ox 07/28/18 08:23 99 105/73 07/28/18 07:23 98.8 F 99 16 108/73 96 07/28/18 03:26 98.5 F 100 18 114/79 95 Weight Weight 159 lb 15.831 oz I&O: 07/27/18 07/28/18 07/29/18 06:59 06:59 06:59 Intake Total 1370 920 Balance 1370 920 Result Diagrams: 07/28/18 08:05 07/28/18 08:05 Additional Labs: Accuchecks 07/28/18 07/28/18 07/27/18 03:27 00:09 20:14 POC Glucose 159 H 194 H 274 H 07/27/18 07/27/18 16:46 12:54 POC Glucose 258 H 195 H Phys Exam - Physical Examination Constitutional: NAD HEENT: PERRLA, moist MMs, sclera anicteric Neck: no JVD, supple Respiratory: no wheezing, no rales, no rhonchi Cardiovascular: RRR, no significant murmur, no rub Gastrointestinal: soft, non-tender, no distention, positive bowel sounds Musculoskeletal: no edema, pulses present Neurological: non-focal, normal sensation Lymphatic: no nodes Psychiatric: normal affect, A&O x 3 Skin: no rash, normal turgor Dx/Plan (1) Acute kidney failure Status: Acute (2) Diabetic hyperosmolar non-ketotic state Code(s): E11.00 - TYPE 2 DIAB W HYPROSM W/O NONKET HYPRGLY-HYPROS COMA ([facility]) Status: Acute (3) Facial cellulitis Code(s): L03.211 - CELLULITIS OF FACE Status: Acute Comment: with abcess (4) Hyperglycemia due to type 2 diabetes mellitus Code(s): E11.65 - TYPE 2 DIABETES MELLITUS WITH HYPERGLYCEMIA Status: Acute (5) Hyponatremia Code(s): E87.1 - HYPO-OSMOLALITY AND HYPONATREMIA Status: Acute (6) Lactic acidosis Code(s): E87.2 - ACIDOSIS Status: Acute (7) DM type 2 (diabetes mellitus, type 2) Status: Chronic Qualifiers: (8) GERD (gastroesophageal reflux disease) Code(s): K21.9 - GASTRO-ESOPHAGEAL REFLUX DISEASE WITHOUT ESOPHAGITIS Status: Chronic (9) Hypertension Code(s): I10 - ESSENTIAL (PRIMARY) HYPERTENSION Status: Chronic - Plan cont current plan of care, continue antibiotics * continue current medical treatment * symptomatic treatment * continue antibiotics * repeat labs tomorrow. Review of Systems - Review of Systems ENT: negative: Ear Pain, Ear Discharge, Nose Pain, Nose Discharge, Nose Congestion, Mouth Pain, Mouth Swelling, Throat Pain, Throat Swelling, Other Respiratory: negative: Cough, Dry, Shortness of Breath, Hemoptysis, SOB with Excertion, Pleuritic Pain, Sputum, Wheezing Cardiovascular: negative: chest pain, palpitations, orthopnea, paroxysmal nocturnal dyspnea, edema, light headedness, other Gastrointestinal: negative: Nausea, Vomiting, Abdominal Pain, Diarrhea, Constipation, Melena, Hematochezia, Other Genitourinary: negative: Dysuria, Frequency, Incontinence, Hematuria, Retention , Other Musculoskeletal: negative: Neck Pain, Shoulder Pain, Arm Pain, Back Pain, Hand Pain, Leg Pain, Foot Pain, Other Skin: negative: Rash, Lesions, Randal, Bruising, Other - Medications/Allergies Allergies/Adverse Reactions: Allergies Allergy/AdvReac Type Severity Reaction Status Date / Time ceftriaxone sodium Allergy Verified 07/25/18 11:57 [From Rocephin] naproxen sodium [From Aleve] Allergy Verified 07/25/18 11:57 Medications: Current Medications Acetaminophen (Tylenol) 650 mg PO Q4H PRN PRN Reason: Headache/Fever/Mild Pain (1-3) Last Admin: 07/25/18 08:05 Dose: 650 mg Hydrocodone Bitart/Acetaminophen ([place] 5/325) 1 tab PO Q4H PRN PRN Reason: Moderate Pain (4-6) Last Admin: 07/28/18 08:25 Dose: 1 tab Amlodipine Besylate (Norvasc) 10 mg PO DAILY [facility] Last Admin: 07/28/18 08:23 Dose: Not Given Artificial Tears (Tears Naturale) 2 drop EA EYE PRN PRN PRN Reason: Dry Eyes Bisacodyl (Dulcolax) 10 mg PO DAILYPRN PRN PRN Reason: Constipation Dextrose/Water (Dextrose 50%) 25 gm SLOW IVP PRN PRN PRN Reason: Hypoglycemia Enoxaparin Sodium (Lovenox) 40 mg SC 0900 [facility] Last Admin: 07/28/18 08:25 Dose: 40 mg Glucagon (Glucagon) 1 mg IM PRN PRN PRN Reason: Hypoglycemia Guaifenesin (Robitussin Sf) 200 mg PO Q4H PRN PRN Reason: Cough Hydralazine HCl (Apresoline) 10 mg SLOW IVP Q4H PRN PRN Reason: BP>170/100 Dextrose/Water (D5w) 1,000 mls @ 0 mls/hr IV .Q0M PRN PRN Reason: Hypoglycemia Insulin Glargine 15 units/ (Miscellaneous Medication) 0.15 mls @ 0 mls/hr SC HS [facility] Last Admin: 07/27/18 20:22 Dose: 0.15 mls Insulin Glargine 5 units/ (Miscellaneous Medication) 0.05 mls @ 0 mls/hr SC QAM [facility] Last Admin: 07/28/18 08:24 Dose: 0.05 mls Vancomycin HCl 1 gm/ Device 200 mls @ 200 mls/hr IVPB 1000,2200 [facility] Last Admin: 07/28/18 09:49 Dose: 200 mls Insulin Human Lispro (Humalog) 0 units SC .MODERATE SLIDING SC PRN PRN Reason: Moderate Correctional Scale Last Admin: 07/27/18 17:17 Dose: 6 unit Insulin Human Lispro (Humalog) 0 units SC .BEDTIME SLIDING SC PRN PRN Reason: Bedtime Correctional Scale Last Admin: 07/27/18 20:27 Dose: 3 unit Lisinopril (Zestril) 10 mg PO BID [facility] Last Admin: 07/28/18 08:23 Dose: Not Given Loperamide HCl (Imodium) 2 mg PO PRN PRN PRN Reason: Diarrhea/Loose Stools Loratadine (Claritin) 10 mg PO DAILYPRN PRN PRN Reason: Sinus Symptoms Mineral Oil/White Petrolatum (Eucerin Cream) 0 gm TOP BIDPRN PRN PRN Reason: Dry Skin Miscellaneous Medication (Pharmacy To Dose) 1 each IVPB PRN PRN PRN Reason: SSSI Morphine Sulfate (Morphine) 4 mg SLOW IVP Q4H PRN PRN Reason: Moderate to Severe Pain (6-10) Last Admin: 07/28/18 06:05 Dose: 4 mg Ondansetron HCl (Zofran Odt) 4 mg PO Q6H PRN PRN Reason: Nausea/Vomiting Ondansetron HCl (Zofran) 4 mg IVP Q6H PRN PRN Reason: Nausea/Vomiting Pantoprazole Sodium (Protonix) 40 mg PO DAILY [facility] Last Admin: 07/28/18 08:24 Dose: 40 mg Senna/Docusate Sodium (Senokot S) 2 tab PO BID PRN PRN Reason: Constipation Sodium Chloride ([place] Nasal [place] 0.65%) 0 ml EA NARE QIDPRN PRN PRN Reason: Nasal Congestion Sodium Chloride (Flush - Normal Saline) 10 ml IVF Q12HR [facility] Last Admin: 07/28/18 08:25 Dose: 10 ml Sodium Chloride (Flush - Normal Saline) 10 ml IVF PRN PRN PRN Reason: Saline Flush Throat Lozenges (Cepastat Lozenges) 1 del PO Q2H PRN PRN Reason: Sore Throat Zolpidem Tartrate (Ambien) 5 mg PO HSPRN PRN PRN Reason: Insomnia
[2018-07-28] MEDS: HumaLOG 300 UNITS/3 ML VIAL SC PRN (16:51)
[2018-07-28] MEDS: Insulin Glargine 15 UNITS in Pre-Filled Syringe 1 EACH SC SCH (21:28)
[2018-07-29] MEDS: Morphine 4 MG/ML VIAL SLOW IVP PRN ×3 (01:40→16:54)
[2018-07-29] MEDS: HumaLOG 300 UNITS/3 ML VIAL SC PRN ×4 (05:39→20:49)
[2018-07-29 06:53] LABS: #Basophils 0.1 thou/uL (0.0-0.2); #Eosinphils 0.3 thou/uL (0.0-0.7); #Lymphocytes 2.7 thou/uL (1.20-3.40); #Monocytes 0.5 thou/uL (0.11-0.59); #Neutrophils 5.9 thou/uL (1.40-6.50); %Basophils 0.6 % (0.0-1.0); %Eosinophils 3.4 % (0.0-10.0); %Lymphocytes 28.9 % (21.0-51.0); %Monocytes 5.5 % (0.0-10.0); %Neutrophils 61.6 % (42.0-75.0); Hemoglobin 13.8 g/dL (12.0-16.0); Mean Corpuscular HGB CONC 32.7 g/dL (32.0-36.0); Mean Corpuscular Hemoglobin 30.6 pg (27.0-31.0); Mean Corpuscular Volume 93.5 fL (78.0-98.0); Mean Platelet Volume 8.4 fL (7.4-10.4); Platelet Count 237 thou/uL (130-400); RBC Distribution Width 12.1 % (11.5-14.5); Red Blood Cell (RBC) Count 4.52 mill/uL (4.20-5.40); White Blood Cell (WBC) Count 9.5 thou/uL (4.8-10.8)
[2018-07-29] MEDS: HYDROcodone/Acetaminophen 5/325 mg Tablet PO PRN ×3 (07:06→20:50)
[2018-07-29] MEDS: Lisinopril 10 MG TAB PO SCH ×2 (08:30→20:50)
[2018-07-29] MEDS: Enoxaparin Sodium 40 MG/0.4 ML SYRINGE SC SCH (08:30)
[2018-07-29] MEDS: Amlodipine 10 MG TAB PO SCH (08:30)
[2018-07-29 09:14] LABS: Vancomycin, Trough 20.3 ug/mL
--- NOTE | 2018-07-29 10:18 | PDOC.PN ---
- Subjective Encounter Start Date: 07/29/18 Encounter Start Time: 09:30 Patient seen and examined. No new complaints. No overnight events - Objective Resuscitation Status - Order Detail: 07/24/18 22:55 Resuscitation Status Routine Resuscitation Status: FULL: Full Resuscitation MAR Reviewed: Yes Vital Signs & Weight: Vital Signs (12 hours) Temp Pulse Resp BP BP Pulse Ox 07/29/18 08:30 87 122/82 07/29/18 08:25 96 07/29/18 07:24 98.7 F 87 19 122/82 96 07/29/18 04:00 98.9 F 86 16 118/82 97 Weight Weight 159 lb 15.831 oz I&O: 07/28/18 07/29/18 07/30/18 06:59 06:59 06:59 Intake Total 920 220 Balance 920 220 Result Diagrams: 07/29/18 06:31 07/28/18 08:05 Additional Labs: Accuchecks 07/29/18 07/28/18 07/28/18 04:37 21:13 16:42 POC Glucose 231 H 218 H 349 H 07/28/18 10:51 POC Glucose 241 H Phys Exam - Physical Examination Constitutional: NAD HEENT: PERRLA, moist MMs, sclera anicteric Neck: no JVD, supple Respiratory: no wheezing, no rales, no rhonchi Cardiovascular: RRR, no significant murmur, no rub Gastrointestinal: soft, non-tender, no distention, positive bowel sounds Musculoskeletal: no edema, pulses present Neurological: non-focal, normal sensation, moves all 4 limbs Lymphatic: no nodes Psychiatric: normal affect, A&O x 3 Skin: no rash, normal turgor Dx/Plan (1) Acute kidney failure Status: Acute (2) Diabetic hyperosmolar non-ketotic state Code(s): E11.00 - TYPE 2 DIAB W HYPROSM W/O NONKET HYPRGLY-HYPROS COMA ([facility]) Status: Acute (3) Facial cellulitis Code(s): L03.211 - CELLULITIS OF FACE Status: Acute Comment: with abcess (4) Hyperglycemia due to type 2 diabetes mellitus Code(s): E11.65 - TYPE 2 DIABETES MELLITUS WITH HYPERGLYCEMIA Status: Acute (5) Hyponatremia Code(s): E87.1 - HYPO-OSMOLALITY AND HYPONATREMIA Status: Acute (6) Lactic acidosis Code(s): E87.2 - ACIDOSIS Status: Acute (7) DM type 2 (diabetes mellitus, type 2) Status: Chronic Qualifiers: (8) GERD (gastroesophageal reflux disease) Code(s): K21.9 - GASTRO-ESOPHAGEAL REFLUX DISEASE WITHOUT ESOPHAGITIS Status: Chronic (9) Hypertension Code(s): I10 - ESSENTIAL (PRIMARY) HYPERTENSION Status: Chronic - Plan cont current plan of care, continue antibiotics * medication reviewed as below * symptomatic treatment * wound care * continue antibiotics * discharge soon * pain control. Review of Systems - Review of Systems ENT: negative: Ear Pain, Ear Discharge, Nose Pain, Nose Discharge, Nose Congestion, Mouth Pain, Mouth Swelling, Throat Pain, Throat Swelling, Other Respiratory: negative: Cough, Dry, Shortness of Breath, Hemoptysis, SOB with Excertion, Pleuritic Pain, Sputum, Wheezing Cardiovascular: negative: chest pain, palpitations, orthopnea, paroxysmal nocturnal dyspnea, edema, light headedness, other Gastrointestinal: negative: Nausea, Vomiting, Abdominal Pain, Diarrhea, Constipation, Melena, Hematochezia, Other Genitourinary: negative: Dysuria, Frequency, Incontinence, Hematuria, Retention , Other Musculoskeletal: negative: Neck Pain, Shoulder Pain, Arm Pain, Back Pain, Hand Pain, Leg Pain, Foot Pain, Other - Medications/Allergies Allergies/Adverse Reactions: Allergies Allergy/AdvReac Type Severity Reaction Status Date / Time ceftriaxone sodium Allergy Verified 07/25/18 11:57 [From Rocephin] naproxen sodium [From Aleve] Allergy Verified 07/25/18 11:57 Medications: Current Medications Acetaminophen (Tylenol) 650 mg PO Q4H PRN PRN Reason: Headache/Fever/Mild Pain (1-3) Last Admin: 07/25/18 08:05 Dose: 650 mg Hydrocodone Bitart/Acetaminophen ([place] 5/325) 1 tab PO Q4H PRN PRN Reason: Moderate Pain (4-6) Last Admin: 07/29/18 07:06 Dose: 1 tab Amlodipine Besylate (Norvasc) 10 mg PO DAILY [facility] Last Admin: 07/29/18 08:30 Dose: 10 mg Artificial Tears (Tears Naturale) 2 drop EA EYE PRN PRN PRN Reason: Dry Eyes Bisacodyl (Dulcolax) 10 mg PO DAILYPRN PRN PRN Reason: Constipation Dextrose/Water (Dextrose 50%) 25 gm SLOW IVP PRN PRN PRN Reason: Hypoglycemia Enoxaparin Sodium (Lovenox) 40 mg SC 0900 [facility] Last Admin: 07/29/18 08:30 Dose: 40 mg Glucagon (Glucagon) 1 mg IM PRN PRN PRN Reason: Hypoglycemia Guaifenesin (Robitussin Sf) 200 mg PO Q4H PRN PRN Reason: Cough Hydralazine HCl (Apresoline) 10 mg SLOW IVP Q4H PRN PRN Reason: BP>170/100 Dextrose/Water (D5w) 1,000 mls @ 0 mls/hr IV .Q0M PRN PRN Reason: Hypoglycemia Insulin Glargine 15 units/ (Miscellaneous Medication) 0.15 mls @ 0 mls/hr SC HS [facility] Last Admin: 07/28/18 21:28 Dose: 0.15 mls Vancomycin HCl 1 gm/ Device 200 mls @ 200 mls/hr IVPB 1000,2200 [facility] Last Admin: 07/28/18 21:27 Dose: 200 mls Insulin Glargine 15 units/ (Miscellaneous Medication) 0.15 mls @ 0 mls/hr SC QAM [facility] Insulin Human Lispro (Humalog) 0 units SC .MODERATE SLIDING SC PRN PRN Reason: Moderate Correctional Scale Last Admin: 07/29/18 05:39 Dose: 4 unit Insulin Human Lispro (Humalog) 0 units SC .BEDTIME SLIDING SC PRN PRN Reason: Bedtime Correctional Scale Last Admin: 07/27/18 20:27 Dose: 3 unit Lisinopril (Zestril) 10 mg PO BID [facility] Last Admin: 07/29/18 08:30 Dose: 10 mg Loperamide HCl (Imodium) 2 mg PO PRN PRN PRN Reason: Diarrhea/Loose Stools Loratadine (Claritin) 10 mg PO DAILYPRN PRN PRN Reason: Sinus Symptoms Mineral Oil/White Petrolatum (Eucerin Cream) 0 gm TOP BIDPRN PRN PRN Reason: Dry Skin Miscellaneous Medication (Pharmacy To Dose) 1 each IVPB PRN PRN PRN Reason: SSSI Morphine Sulfate (Morphine) 4 mg SLOW IVP Q4H PRN PRN Reason: Moderate to Severe Pain (6-10) Last Admin: 07/29/18 01:40 Dose: 4 mg Ondansetron HCl (Zofran Odt) 4 mg PO Q6H PRN PRN Reason: Nausea/Vomiting Ondansetron HCl (Zofran) 4 mg IVP Q6H PRN PRN Reason: Nausea/Vomiting Pantoprazole Sodium (Protonix) 40 mg PO DAILY [facility] Last Admin: 07/29/18 08:30 Dose: 40 mg Senna/Docusate Sodium (Senokot S) 2 tab PO BID PRN PRN Reason: Constipation Sodium Chloride ([place] Nasal [place] 0.65%) 0 ml EA NARE QIDPRN PRN PRN Reason: Nasal Congestion Sodium Chloride (Flush - Normal Saline) 10 ml IVF Q12HR [facility] Last Admin: 07/28/18 21:35 Dose: 10 ml Sodium Chloride (Flush - Normal Saline) 10 ml IVF PRN PRN PRN Reason: Saline Flush Throat Lozenges (Cepastat Lozenges) 1 del PO Q2H PRN PRN Reason: Sore Throat Zolpidem Tartrate (Ambien) 5 mg PO HSPRN PRN PRN Reason: Insomnia
[2018-07-29] MEDS: Insulin Glargine 15 UNITS in Pre-Filled Syringe 1 EACH SC SCH ×2 (10:52→20:50)
[2018-07-29] MEDS: Vancomycin HCl 1 GM in Premix Bag 1 BAG IVPB SCH ×2 (11:17→21:32)
--- NOTE | 2018-07-29 17:08 | PQF ---
CLINICAL DOCUMENTATION IMPROVEMENT CLARIFICATION FORM: ICD-10 Updated PLEASE DO AN ADDENDUM TO THE PROGRESS NOTE WITH ANY DOCUMENTATION UPDATES OR ADDITIONS AND CARRY THROUGH TO DC SUMMARY. THANK YOU. DATE: 07/29/2018 ATTN: Dr. Moreno Please exercise your independent, professional judgment in responding to the clarification form. Clinical indicators are provided on the bottom of this form for your review Please check appropriate box(s) to clarify if the following diagnosis has been ruled in or ruled out: Sepsis [ x] Ruled in diagnosis [ x ] Continue to treat [ ] Resolved [ ] Ruled out diagnosis [ ] Cannot rule out diagnosis [ ] Other diagnosis [ ] Unable to determine In addition, please specify: Present on Admission (POA): [x ] Yes [ ] No [ ] Unable to determine For continuity of documentation, please document condition throughout progress notes and discharge summary. Thank You. CLINICAL INDICATORS - SIGNS / SYMPTOMS / LABS H&P 07/25: Heart rate 134 White count 12.3 Lactic acid 4.3 Sepsis. The pt has leukocytosis, tachycardia, the pt's source is cellulitis. RISKS: H&P: Uncontrolled diabetes. hypertonic hyponatremia 2/2 hyperglycemia. TREATMENT: MAR: Order 07/27 Vancomycin HCL 1 gm IV Thank you, Connie (This form is maintained as a part of the permanent medical record) 2014 [employer]. All Rights Reserved Connie Nicole RN, BSN [email or web address] Office: [phone] [facility] HOSPITALYasmine
--- NOTE | 2018-07-29 20:17 | PRG ---
DATE OF SERVICE: SUBJECTIVE: Follow up I and D of the abscess in the superior nasal region. The patient is doing well. Swelling has decreased. Packing has been removed. The patient states that she continues to have some drainage and she is trying actively drain it while she was in the shower daily. But, overall feels like she is improving. OBJECTIVE: GENERAL: The patient is well developed, well nourished. She is in no acute distress. VITAL SIGNS: Her vital signs were stable. HEENT: Examination of I and D site reveals that though packing is removed, there is still an open area that is allowing for active drainage. The area was expressed. Small scant amount of purulent fluid was expressed. The majority of fluid expressed was bloody. The patient tolerated that well. Sterile gauze dressing was placed back on after expressing the fluid. ASSESSMENT: Cellulitis and abscess, nasal region. PLAN: 1. The patient will continue to try to express fluid out of wound during showers. 2. No further I and D anticipated. No need for packing. 3. Once cleared for discharge by Medicine, recommend being on Bactrim DS for 10 days and follow up with ENT upon discharge. Job ID: [id number]
[2018-07-30] MEDS: Morphine 4 MG/ML VIAL SLOW IVP PRN ×2 (01:43→07:45)
[2018-07-30] MEDS: HYDROcodone/Acetaminophen 5/325 mg Tablet PO PRN (06:23)
[2018-07-30] MEDS: HumaLOG 300 UNITS/3 ML VIAL SC PRN ×2 (06:24→11:43)
[2018-07-30 07:44] VITALS: TEMP 98.3
[2018-07-30] MEDS: Enoxaparin Sodium 40 MG/0.4 ML SYRINGE SC SCH (07:44)
[2018-07-30] MEDS: Lisinopril 10 MG TAB PO SCH (09:35)
[2018-07-30] MEDS: Amlodipine 10 MG TAB PO SCH (09:36)
--- NOTE | 2018-07-30 10:39 | PDOC.PN ---
- Subjective Encounter Start Date: 07/30/18 Encounter Start Time: 07:35 Patient seen and examined. No new complaints. No overnight events - Objective Resuscitation Status - Order Detail: 07/24/18 22:55 Resuscitation Status Routine Resuscitation Status: FULL: Full Resuscitation MAR Reviewed: Yes Vital Signs & Weight: Vital Signs (12 hours) Temp Pulse Resp BP BP Pulse Ox 07/30/18 09:36 92 118/80 07/30/18 09:35 118/80 07/30/18 07:47 92 114/80 07/30/18 07:45 98 07/30/18 07:42 98.3 F 101 H 18 98/66 98 Weight Weight 159 lb 15.831 oz I&O: 07/29/18 07/30/18 07/31/18 06:59 06:59 06:59 Intake Total 220 1200 Balance 220 1200 Result Diagrams: 07/29/18 06:31 07/28/18 08:05 Additional Labs: Accuchecks 07/30/18 07/29/18 07/29/18 05:07 20:08 15:53 POC Glucose 172 H 258 H 241 H 07/29/18 11:25 POC Glucose 319 H Phys Exam - Physical Examination Constitutional: NAD HEENT: PERRLA, moist MMs, sclera anicteric Neck: no JVD, supple Respiratory: no wheezing, no rales, no rhonchi Cardiovascular: RRR, no significant murmur, no rub Gastrointestinal: soft, non-tender, no distention, positive bowel sounds Musculoskeletal: no edema, pulses present Neurological: non-focal, normal sensation Lymphatic: no nodes Psychiatric: normal affect, A&O x 3 Skin: no rash, normal turgor Dx/Plan (1) Acute kidney failure Status: Acute (2) Diabetic hyperosmolar non-ketotic state Code(s): E11.00 - TYPE 2 DIAB W HYPROSM W/O NONKET HYPRGLY-HYPROS COMA ([facility]) Status: Acute (3) Facial cellulitis Code(s): L03.211 - CELLULITIS OF FACE Status: Acute Comment: with abcess (4) Hyperglycemia due to type 2 diabetes mellitus Code(s): E11.65 - TYPE 2 DIABETES MELLITUS WITH HYPERGLYCEMIA Status: Acute (5) Hyponatremia Code(s): E87.1 - HYPO-OSMOLALITY AND HYPONATREMIA Status: Acute (6) Lactic acidosis Code(s): E87.2 - ACIDOSIS Status: Acute (7) DM type 2 (diabetes mellitus, type 2) Status: Chronic Qualifiers: (8) GERD (gastroesophageal reflux disease) Code(s): K21.9 - GASTRO-ESOPHAGEAL REFLUX DISEASE WITHOUT ESOPHAGITIS Status: Chronic (9) Hypertension Code(s): I10 - ESSENTIAL (PRIMARY) HYPERTENSION Status: Chronic - Plan cont current plan of care, continue antibiotics * medication reviewed as below * symptomatic treatment * see my discharge kayla. Review of Systems - Review of Systems ENT: negative: Ear Pain, Ear Discharge, Nose Pain, Nose Discharge, Nose Congestion, Mouth Pain, Mouth Swelling, Throat Pain, Throat Swelling, Other Respiratory: negative: Cough, Dry, Shortness of Breath, Hemoptysis, SOB with Excertion, Pleuritic Pain, Sputum, Wheezing Cardiovascular: negative: chest pain, palpitations, orthopnea, paroxysmal nocturnal dyspnea, edema, light headedness, other Gastrointestinal: negative: Nausea, Vomiting, Abdominal Pain, Diarrhea, Constipation, Melena, Hematochezia, Other Genitourinary: negative: Dysuria, Frequency, Incontinence, Hematuria, Retention , Other Musculoskeletal: negative: Neck Pain, Shoulder Pain, Arm Pain, Back Pain, Hand Pain, Leg Pain, Foot Pain, Other - Medications/Allergies Allergies/Adverse Reactions: Allergies Allergy/AdvReac Type Severity Reaction Status Date / Time ceftriaxone sodium Allergy Verified 07/25/18 11:57 [From Rocephin] naproxen sodium [From Aleve] Allergy Verified 07/25/18 11:57 Medications: Current Medications Acetaminophen (Tylenol) 650 mg PO Q4H PRN PRN Reason: Headache/Fever/Mild Pain (1-3) Last Admin: 07/25/18 08:05 Dose: 650 mg Hydrocodone Bitart/Acetaminophen ([place] 5/325) 1 tab PO Q4H PRN PRN Reason: Moderate Pain (4-6) Last Admin: 07/30/18 06:23 Dose: 1 tab Amlodipine Besylate (Norvasc) 10 mg PO DAILY GALI Last Admin: 07/30/18 09:36 Dose: 10 mg Artificial Tears (Tears Naturale) 2 drop EA EYE PRN PRN PRN Reason: Dry Eyes Bisacodyl (Dulcolax) 10 mg PO DAILYPRN PRN PRN Reason: Constipation Dextrose/Water (Dextrose 50%) 25 gm SLOW IVP PRN PRN PRN Reason: Hypoglycemia Enoxaparin Sodium (Lovenox) 40 mg SC 0900 [facility] Last Admin: 07/30/18 07:44 Dose: 40 mg Glucagon (Glucagon) 1 mg IM PRN PRN PRN Reason: Hypoglycemia Guaifenesin (Robitussin Sf) 200 mg PO Q4H PRN PRN Reason: Cough Hydralazine HCl (Apresoline) 10 mg SLOW IVP Q4H PRN PRN Reason: BP>170/100 Dextrose/Water (D5w) 1,000 mls @ 0 mls/hr IV .Q0M PRN PRN Reason: Hypoglycemia Insulin Glargine 15 units/ (Miscellaneous Medication) 0.15 mls @ 0 mls/hr SC HS [facility] Last Admin: 07/29/18 20:50 Dose: 0.15 mls Vancomycin HCl 1 gm/ Device 200 mls @ 200 mls/hr IVPB 1000,2200 [facility] Last Admin: 07/29/18 21:32 Dose: 200 mls Insulin Glargine 15 units/ (Miscellaneous Medication) 0.15 mls @ 0 mls[facility] Last Admin: 07/29/18 10:52 Dose: 0.15 mls Insulin Human Lispro (Humalog) 0 units SC .MODERATE SLIDING SC PRN PRN Reason: Moderate Correctional Scale Last Admin: 07/30/18 06:24 Dose: 2 unit Insulin Human Lispro (Humalog) 0 units SC .BEDTIME SLIDING SC PRN PRN Reason: Bedtime Correctional Scale Last Admin: 07/29/18 20:49 Dose: 3 unit Lisinopril (Zestril) 10 mg PO BID [facility] Last Admin: 07/30/18 09:35 Dose: 10 mg Loperamide HCl (Imodium) 2 mg PO PRN PRN PRN Reason: Diarrhea/Loose Stools Loratadine (Claritin) 10 mg PO DAILYPRN PRN PRN Reason: Sinus Symptoms Mineral Oil/White Petrolatum (Eucerin Cream) 0 gm TOP BIDPRN PRN PRN Reason: Dry Skin Miscellaneous Medication (Pharmacy To Dose) 1 each IVPB PRN PRN PRN Reason: SSSI Morphine Sulfate (Morphine) 4 mg SLOW IVP Q4H PRN PRN Reason: Moderate to Severe Pain (6-10) Last Admin: 07/30/18 07:45 Dose: 4 mg Ondansetron HCl (Zofran Odt) 4 mg PO Q6H PRN PRN Reason: Nausea/Vomiting Ondansetron HCl (Zofran) 4 mg IVP Q6H PRN PRN Reason: Nausea/Vomiting Pantoprazole Sodium (Protonix) 40 mg PO DAILY [facility] Last Admin: 07/30/18 07:45 Dose: 40 mg Senna/Docusate Sodium (Senokot S) 2 tab PO BID PRN PRN Reason: Constipation Sodium Chloride ([facility] Nasal [place] 0.65%) 0 ml EA NARE QIDPRN PRN PRN Reason: Nasal Congestion Sodium Chloride (Flush - Normal Saline) 10 ml IVF Q12HR [facility] Last Admin: 07/30/18 07:45 Dose: 10 ml Sodium Chloride (Flush - Normal Saline) 10 ml IVF PRN PRN PRN Reason: Saline Flush Throat Lozenges (Cepastat Lozenges) 1 del PO Q2H PRN PRN Reason: Sore Throat Zolpidem Tartrate (Ambien) 5 mg PO HSPRN PRN PRN Reason: Insomnia
[2018-07-30] MEDS: Vancomycin HCl 1 GM in Premix Bag 1 BAG IVPB SCH (10:54)
--- NOTE | 2018-07-30 10:57 | DIS ---
DATE OF ADMISSION: 07/25/2018 DATE OF DISCHARGE: 07/30/2018 PRIMARY CARE PHYSICIAN: [facility] Call Admission. DISCHARGE DISPOSITION: Home. PRIMARY DISCHARGE DIAGNOSES: 1. Acute kidney failure, improved. 2. Sepsis with acute organ dysfunction, resolved. 3. Facial cellulitis with abscess, status post bedside incision and drainage. 4. Hyperosmolar hyperglycemic nonketotic state. 5. Lactic acidosis, resolved. 6. Hyponatremia, corrected. SECONDARY DISCHARGE DIAGNOSES: Hypertension, gastroesophageal reflux disease, diabetes type 2. PRIMARY PROCEDURE/OPERATION: Bedside I and D was performed by ENT. RADIOLOGICAL INVESTIGATION: CT facial bone. SIGNIFICANT LABORATORY DATA: Hemoglobin 13.8, WBC 9.5, platelet 237. Creatinine 1.16, sodium 135, calcium 9.4. Culture negative. DISCHARGE MEDICATIONS: 1. Bactrim DS one tablet twice daily for 10 days. 2. Florastor 250 mg p.o. daily. 3. Protonix 40 mg p.o. daily. 4. Metformin 500 mg t.i.d. 5. Lisinopril 10 mg b.i.d. 6. NovoLog 70/30, 15 units subcu b.i.d. 7. Glucotrol 5 mg b.i.d. 8. Amlodipine 10 mg daily. CONTRAINDICATION: None. CODE STATUS: Full code. INPATIENT SALES VENDOR: Dr. David Ohara, ENT, was following while in hospital. TEST RESULTS PENDING ON DISCHARGE: None. ALLERGIES: ROCEPHIN, NAPROXEN. DISCHARGE PLAN: Post-hospital, the patient will follow up with primary care physician, Dr. Jessica Barreto. HOSPITAL COURSE: A 37-year-old female, who was admitted by Dr. Farley. Please see his H and P for further details. On admission, she was having acute kidney failure. Her creatinine was elevated to 1.74, which was related with osmotic diuresis and dehydration. She was given IV fluid and her creatinine improved to normal. The patient also had hyperglycemic hyperosmolar nonketotic state, which was controlled with insulin while in hospital. The patient was also having a sepsis secondary to cellulitis on face with abscess, which required drainage while in hospital. The patient was treated with vancomycin and Rocephin while in hospital. On discharge, we changed to Bactrim. The patient will follow up with ENT doctor as instructed. Her pain was well controlled. We started insulin therapy for her better diabetes control. The patient, education given, to be compliant with the treatment as well as diet. By the time of discharge, the patient was hemodynamically stable. I have seen and examined at bedside today. ENT cleared her for discharge. Her vital signs are normal and her physical examination is completely unremarkable. Her facial cellulitis improved and her periorbital edema significantly improved. Cardiac and lung examinations are normal. Job ID: [id number]
[2018-07-30 11:14] VITALS: BP 107/74
[2018-07-30] MEDS: Insulin Glargine 15 UNITS in Pre-Filled Syringe 1 EACH SC SCH (11:42)
== END 2018-07-30 13:07 | disposition home or self-care (01) | DRG 853 ==
LOC: ERS 19:48 → T4-A 19:51 → ERHOLD 07-25 00:28 → T4-A 07-25 11:05
PROVIDERS: ADMIT Hospitalist; ATTEND Hospitalist
PROC: 0J910ZZ Drainage of Face Subcutaneous Tissue and Fascia, Open Approach (ICD-10-PCS; principal; 2018-07-29)
DX: A41.9 Sepsis, unspecified organism (principal); E11.00 Type 2 diabetes mellitus with hyperosmolarity without nonketotic hyperglycemic-hyperosmolar coma (NKHHC); L03.211 Cellulitis of face; E87.1 Hypo-osmolality and hyponatremia; N17.9 Acute kidney failure, unspecified; I10 Essential (primary) hypertension; J34.0 Abscess, furuncle and carbuncle of nose; F17.210 Nicotine dependence, cigarettes, uncomplicated; F15.10 Other stimulant abuse, uncomplicated; E11.65 Type 2 diabetes mellitus with hyperglycemia; Z88.1 Allergy status to other antibiotic agents; Z91.19 Patient's noncompliance with other medical treatment and regimen; Z90.49 Acquired absence of other specified parts of digestive tract; Z88.8 Allergy status to other drugs, medicaments and biological substances; Z79.84 Long term (current) use of oral hypoglycemic drugs; Z79.899 Other long term (current) drug therapy
CPT/HCPCS: 36415; 36416; 70487; 80048; 80053; 80202; 82010; 83605; 85025; 87040; 96361; 96365; 96367; 96375; J1650; J1815; J1825; J2185; J2270; J2405; J3370; Q9966